=== PATIENT | female | born 1960 | race African-American/Black ===

== ENCOUNTER 2017-08-24 09:51 | Inpatient (IN) | payer OTHER ==
[2017-08-24 10:45] LABS: Hematocrit 29.7 % (36.0-47.0); Mean Platelet Volume 11.2 fL (7.4-10.4); Red Blood Cell (RBC) Count 3.63 mill/uL (4.20-5.40); White Blood Cell (WBC) Count 12.2 thou/uL (4.8-10.8)
[2017-08-24 11:02] LABS: #Eosinphils 0.2 thou/uL (0.0-0.7); #Lymphocytes 2.1 thou/uL (1.20-3.40); #Monocytes 0.7 thou/uL (0.11-0.59); #Neutrophils 9.2 thou/uL (1.40-6.50); %Basophils 0.2 % (0.0-1.0); %Eosinophils 1.5 % (0.0-10.0); %Lymphocytes 17.5 % (21.0-51.0); %Monocytes 5.6 % (0.0-10.0); Band 8 % (5-11); Hypochromia SLIGHT = 6-15 cells (100X) (0-5/hpf); Neutrophil 66 % (42-75); Polychromasia SLIGHT = 2-3 cells (100X) (0-2/hpf)
[2017-08-24 11:09] LABS: ALT (SGPT) 13 U/L (8-55); AST (SGOT) 20 U/L (5-34); Alkaline Phosphatase 98 U/L (40-150); Anion Gap 13 mmol/L (10-20); BUN (Urea Nitrogen) 24 mg/dL (9.8-20.1); Bilirubin, Total 0.7 mg/dL (0.2-1.2); Calc. Creatinine Clearance 0 mL/min (70-130); Calcium 8.6 mg/dL (7.8-10.44); Carbon Dioxide 23 mmol/L (22-29); Chloride 106 mmol/L (98-107); Estimated GFR-MDRD 44; Globulin 4.8 g/dL (2.4-3.5); Protein, Total 8.1 g/dL (6.0-8.3)
[2017-08-24] MEDS ORDERED: Nitroglycerin 2% Ointment 1 INCH/1 GM Packet ONE (11:24)
--- NOTE | 2017-08-24 11:28 | RAD ---
SINGLE VIEW OF THE CHEST: HISTORY: Right-sided weakness and dyspnea. COMPARISON: 11/22/2016 FINDINGS: A single view of the chest shows an enlarged cardiomediastinal silhouette. Fluffy opacities are seen in the lungs, which may represent pulmonary edema. There is obscurity of both costophrenic angles, which may represent bilateral pleural effusions. IMPRESSION: Cardiomegaly with pulmonary edema. This is likely secondary to congestive heart failure with volume overload. POS: [facility]
[2017-08-24] MEDS ORDERED: Water For Inject, Bacteriostat 30 ML ONE (11:52)
[2017-08-24] MEDS ORDERED: methylPREDNISolone Sod Succ/PF 125 MG/2 ML VIAL ONE (11:52)
[2017-08-24] MEDS ORDERED: Furosemide 40 MG/4 ML VIAL ONE (11:53)
[2017-08-24] MEDS ORDERED: hydrALAZINE 20 MG/ML VIAL ONE (14:57)
[2017-08-24] MEDS: Furosemide 40 MG/4 ML VIAL SLOW IVP SCH ×2 (17:20→21:41)
[2017-08-24] MEDS ORDERED: Dextrose 50% Abboject 50 ML SYRINGE IVP PRN (17:50)
[2017-08-24] MEDS ORDERED: Dextrose 5% in Water 1,000 ML IV PRN (17:50)
[2017-08-24] MEDS ORDERED: FLU VACC QS2017-18 36 mo. & older 0.5 ML SYRINGE IM ONE (21:00)
[2017-08-24 22:17] LABS: Troponin I Less than 0.010 ng/mL (< 0.028)
[2017-08-25] MEDS: Furosemide 40 MG/4 ML VIAL SLOW IVP SCH ×3 (02:30→20:35)
--- NOTE | 2017-08-25 06:00 | HP ---
DATE OF ADMISSION: 08/24/2017 REASON AND CHIEF COMPLAINT: Right-sided weakness and shortness of breath. HISTORY OF PRESENT ILLNESS: Ms. Harrison is a 57-year-old -Irish female with past medical history of hypertension, hypertensive heart disease, CHF and insulin-dependent diabetes mellitus, who was brought in because of weakness in the right side and shortness of breath. The patient had weakn ess and also right leg pain, which started a week ago, but got worse in the last 24 hours. According to the family, the patient had change in mental state for the last 3 days, not able to ambulate, so family thought she might have a stroke. EMS was called because of these symptoms and shortness of br eath. EMS found the patient with some respiratory distress and was put on oxygen. In the ER, the dane fields was evaluated and found to have acute pulmonary edema. The patient received a dose of Lasix, S evelyn-Medrol and nitroglycerin. The patient was also found to have elevated blood pressure and also re ceived hydralazine IV. The patient is admitted for further evaluation and management. PAST MEDICAL HISTORY: 1. Insulin-dependent diabetes mellitus. 2. Hypertensive heart disease. 3. Diastolic heart failure. 4. Hyperlipidemia. 5. Status post cerebrovascular accident. 6. History of pneumonia. PAST SURGICAL HISTORY: 1. Status post hernia repair. 2. Status post . CURRENT MEDICATIONS: The patient is on amlodipine 5 mg daily, aspirin 81 mg daily, Coreg 3.125 b.i.d ., Lasix 40 daily, insulin 70/30 Novolin 20 units b.i.d., lisinopril 20 mg b.i.d., metformin 1000 b.i .d. and KCl 20 mEq daily. ALLERGIES: PENICILLIN and SULFA. FAMILY HISTORY: Nothing of interest. SOCIAL HISTORY: The patient lives with her daughter. No history of smoking. No history of alcohol intake. REVIEW OF SYSTEMS: Cardiovascular: No chest pain. Has shortness of breath. Respiratory: No fever or cough. Gastrointestinal: No nausea or vomiting. No abdominal pain. Genitourinary: No distens ion. Central Nervous System: No headache. Feels weak on the right side. Musculoskeletal: Complai jolly of pain in the right leg. No injury. No fall. PHYSICAL EXAMINATION: GENERAL: The patient is alert, awake and oriented x3. VITAL SIGNS: Temperature 98, pulse 98, respirations 23 and blood pressure initially 170/100. HEENT: Head is normocephalic and atraumatic. Pupils are equal and reactive to light. Nasopharynx i s pale and dry. Hard and soft palate. No lesions seen. SKIN: Turgor is decreased. NECK: Supple. No JVD. LUNGS: Breath sounds diminished bilaterally. Percussion not dull bilaterally. Rales are present bi laterally. HEART: S1 and S2 regular. ABDOMEN: Soft. No distention, no tenderness. Normal bowel sounds present. RECTAL: Deferred. CENTRAL NERVOUS SYSTEM: The patient is alert, awake and oriented x3. Motor system power 4/5 in all extremities except the right lower leg, which is about 3-4/5. Deep tendon reflexes are 2+ bilaterall y. Plantars are downgoing. Sensory is intact. EXTREMITIES: 3+ pitting edema. LABORATORY AND X-RAY FINDINGS: CBC showed a WBC of 12, hemoglobin 9, hematocrit 29 and platelets 155 . Metabolic panel: Sodium 138, potassium 3.7, chloride 106, CO2 23, urea nitrogen 24, creatinine 1. 4, glucose 153, CK-MB 2.5 and troponin I 0.010. BNP was 303. Chest x-ray shows pulmonary edema. EK G shows normal sinus rhythm. No acute ST-T wave changes seen. ASSESSMENT: 1. Congestive heart failure, acute on chronic and diastolic heart failure. 2. Uncontrolled hypertension. 3. Hypertensive heart disease. 4. Insulin-dependent diabetes mellitus. 5. Right leg pain. 6. History of cerebrovascular accident with right-sided weakness. 7. Hyperlipidemia. PLAN: 1. Vital signs q.4 hours. 2. Activity: As tolerated. 3. Allergies: PENICILLIN and SULFA. 4. Diet: ADA. 5. Lasix 40 mg IVP q.12 hours. 6. Intake and output. 7. Continue home medications. 8. CK-MB and troponin I q.8 hours x2. 9. Accu-Cheks a.c. and at bedtime. 10. Sliding scale mild with regular insulin. 11. Tramadol p.r.n.
[2017-08-25 06:47] LABS: Anion Gap 15 mmol/L (10-20); BUN (Urea Nitrogen) 28 mg/dL (9.8-20.1); Calc. Creatinine Clearance 61 mL/min (70-130); Calcium 8.2 mg/dL (7.8-10.44); Carbon Dioxide 24 mmol/L (22-29); Chloride 104 mmol/L (98-107); Estimated GFR-MDRD 44; Iron 40 ug/dL (50-170)
[2017-08-25] MEDS: Carvedilol 3.125 MG TAB PO SCH ×2 (09:03→17:34)
[2017-08-25] MEDS: Potassium Chloride 20 MEQ TAB PO SCH (09:03)
[2017-08-25] MEDS: Aspirin 81 mg Enteric Coated Tablet PO SCH (09:03)
[2017-08-25] MEDS: Amlodipine 5 MG TAB PO SCH (09:03)
[2017-08-25] MEDS: metFORMIN 500 MG TAB PO SCH ×2 (09:03→17:34)
[2017-08-25] MEDS: Lisinopril 20 MG TAB PO SCH (09:03)
--- NOTE | 2017-08-25 09:09 | CT ---
CT BRAIN WITHOUT CONTRAST: History: Increased confusion. Comparison: 02-16-15 Technique: Noncontrast head CT is performed from skull base to skull vertex. FINDINGS: No intracranial hemorrhage. No extraaxial hematoma. No midline shift. Basilar cisterns are patent. Br ain volume is age appropriate. Cortical nickerson white matter differentiation is preserved. Ventricles and sulci are patent and symmetric. White matter hypodensities due to chronic vessel ischemic changes are noted. Calvarium is intact. Adequate aeration of the sinuses and mastoid air cells. Cavernous carotid athero sclerosis is identified. IMPRESSION: No acute intracranial process. MRI if clinically indicated. POS: [facility]
[2017-08-25] MEDS: Insulin NPH/Reg Insulin Hm 300 UNITS/3 ML VIAL SC SCH ×2 (09:12→17:07)
--- NOTE | 2017-08-25 11:52 | PQF ---
CLINICAL DOCUMENTATION IMPROVEMENT CLARIFICATION FORM: ICD-10 Updated PLEASE DO AN ADDENDUM TO THE PROGRESS NOTE WITH ANY DOCUMENTATION UPDATES OR ADDITIONS AND CARRY THROUGH TO DC SUMMARY. THANK YOU. DATE: 08/25 ATTN: DR. Adeline KIRAN Please exercise your independent, professional judgment in responding to the clarification form. Clinical indicators are provided on the bottom of this form for your review Please check appropriate box(s): BMI > 40 with associated diagnosis of: (check one) [ y] Morbid (Severe) Obesity [ y ] Due to excess calories [ ] Obesity [ ] Other diagnosis [ ] Unable to determine For continuity of documentation, please document condition throughout progress notes and discharge summary. Thank You. BMI < 19 Under weight 19 - 24.9 Healthy 25.0 - 29.9 Slightly Overweight 30.0 - 34.9 Obese 35.0 - 39.9 Severely Obese 40.0 and Over Morbidly Obese CLINICAL INDICATORS - SIGNS / SYMPTOMS / LABS BMI: 62.8 REQUIRES LARGE WHEELCHAIR, BP CUFF ADDITIONAL STAFF FOR POSITIONING, ADL'S, TRANSFERS RISK FACTORS: DM II HTN HYPERTENSIVE HEART DX W/ACUTE ON CHRONIC DIASTOLIC HF TREATMENTS: NUTRITION ASSMT FOR CHF HEART HEALTHY DIET THANK YOU! Helen (This form is maintained as a part of the permanent medical record) 2014 [employer]. All Rights Reserved Helen Martínez RN, BSN [email or web address] Office: [phone] [facility]
[2017-08-25] MEDS: Insulin Regular 300 UNITS/3 ML VIAL SC PRN ×2 (14:33→18:15)
[2017-08-25] MEDS: Docusate 100 MG CAP PO SCH (20:35)
[2017-08-26 05:58] VITALS: BMI 63.1
[2017-08-26] MEDS: Carvedilol 3.125 MG TAB PO SCH ×2 (08:36→17:38)
[2017-08-26] MEDS: metFORMIN 500 MG TAB PO SCH ×2 (08:36→17:37)
[2017-08-26] MEDS: Insulin NPH/Reg Insulin Hm 300 UNITS/3 ML VIAL SC SCH ×2 (08:36→17:37)
[2017-08-26] MEDS: Amlodipine 5 MG TAB PO SCH (08:37)
[2017-08-26] MEDS: Docusate 100 MG CAP PO SCH ×2 (08:37→20:12)
[2017-08-26] MEDS: Potassium Chloride 20 MEQ TAB PO SCH (08:37)
[2017-08-26] MEDS: Furosemide 40 MG/4 ML VIAL SLOW IVP SCH (08:37)
[2017-08-26] MEDS: Lisinopril 20 MG TAB PO SCH (08:37)
[2017-08-26] MEDS: Aspirin 81 mg Enteric Coated Tablet PO SCH (08:37)
[2017-08-27 05:05] LABS: Anion Gap 11 mmol/L (10-20); BUN (Urea Nitrogen) 26 mg/dL (9.8-20.1); Calc. Creatinine Clearance 73 mL/min (70-130); Carbon Dioxide 28 mmol/L (22-29); Chloride 100 mmol/L (98-107); Estimated GFR-MDRD 55
--- NOTE | 2017-08-27 08:16 | PQF ---
CLINICAL DOCUMENTATION IMPROVEMENT CLARIFICATION FORM: ICD-10 Updated PLEASE DO AN ADDENDUM TO THE PROGRESS NOTE WITH ANY DOCUMENTATION UPDATES OR ADDITIONS AND CARRY THROUGH TO DC SUMMARY. THANK YOU. DATE: 08/27 ATTN: DR. Adeline KIRAN Please exercise your independent, professional judgment in responding to the clarification form. Clinical indicators are provided on the bottom of this form for your review Please check appropriate box(s): [ ] Acute Renal Failure (ARF) / Acute Kidney Injury (KATARZYNA) [ ] Other Etiology or underlying conditions related to the diagnosis of ARF/ KATARZYNA: [ y ] Acute on Chronic Renal Failure please specify Stage of CKD ___stage !!____ _ (see below) [ ] CKD without ARF/KATARZYNA please specify Stage of CKD [ ] Other diagnosis [ ] Unable to determine In addition, please specify: Present on Admission (POA): [ ] Yes [ ] No [ ] Unable to determine National Kidney Foundation Guidelines for CKD Staging Stage I Kidney damage with normal or increased GFR GFR > 90 Stage II Kidney damage with mildly decreased GFR GFR 60-89 Stage III Kidney damage with moderately decreased GFR GFR 30-59 Stage IV Kidney damage with severely decreased GFR GFR 16-29 Stage V Kidney failure GFR<15 ESRD End Stage Renal Disease On dialysis For continuity of documentation, please document condition throughout progress notes and discharge summary. Thank You. CLINICAL INDICATORS - SIGNS / SYMPTOMS / LABS BUN: 24 CR: 1.46 GFR: 44 (ADMIT, 08/24) 28 1.47 44 (08/25) 26 1.21 55 (08/27) RISK FACTORS: MORBID OBESITY UNCONTROLLED HTN DM II ACUTE ON CHRONIC DIASTOLIC CHF TREATMENT: SERIAL BMP DAILY LISINOPRIL THANK YOU! Helen (This form is maintained as a part of the permanent medical record) 2015 [employer]. All Rights Reserved Helen Martínez RN, BSN [email or web address] Office: [phone] [facility]
--- NOTE | 2017-08-27 08:28 | PQF ---
CLINICAL DOCUMENTATION IMPROVEMENT CLARIFICATION FORM: ICD-10 Updated PLEASE DO AN ADDENDUM TO THE PROGRESS NOTE WITH ANY DOCUMENTATION UPDATES OR ADDITIONS AND CARRY THROUGH TO DC SUMMARY. THANK YOU. DATE: 08/27 ATTN: DR. Adeline KIRAN Please exercise your independent, professional judgment in responding to the clarification form. Clinical indicators are provided on the bottom of this form for your review Please check appropriate box(s): [ ] Primary/Essential Hypertension [ ] Emergency [ ] Urgency [ ] Crisis [ y] Hypertensive Heart and Kidney Disease [ ] Secondary Hypertension (please specify etiology, if known) [ ] Other diagnosis [ ] Unable to determine For continuity of documentation, please document condition throughout progress notes and discharge summary. Thank You. CLINICAL INDICATORS - SIGNS / SYMPTOMS / LABS ER PRESENTATION 08/24: BP: 115-67 - 194/102 TREATMENT IN ER: IV HYDRALAZINE, IV LASIX, NTP PHYSICIAN H&P DOCUMENTATION 08/24: HX OF PRESENT ILLNESS: THE PATIENT WAS ALSO FOUND TO HAVE ELEVATED BLOOD PRESSURE & REC'D HYDRALAZINE IV. PAST MEDICAL HX: 2. HYPERTENSIVE HEART DISEASE; ASSESSMENT: 2. UNCONTROLLED HYPERTENSION PHYSICIAN PN 08/25: HYPERTENSION - UNCONTROLLED BP: 133/68 - 187/76 RISK FACTORS: HX OF HTN HX OF CHRONIC DIASTOLIC CHF DM II MORBID OBESITY TREATMENTS: TELEMETRY MONITORING NIKOLAI INHIBITOR (LISINOPRIL 08/24 - PRESENT) CALCIUM CHANNEL KIM (NORVASC 08/24 - PRESENT) THANK YOU! Helen (This form is maintained as a part of the permanent medical record) 2014 [employer]. All Rights Reserved Helen Martínez RN, BSN [email or web address] Office: [phone] [facility]
[2017-08-27] MEDS: Amlodipine 5 MG TAB PO SCH (09:22)
[2017-08-27] MEDS: metFORMIN 500 MG TAB PO SCH ×2 (09:22→17:40)
[2017-08-27] MEDS: Aspirin 81 mg Enteric Coated Tablet PO SCH (09:22)
[2017-08-27] MEDS: Lisinopril 20 MG TAB PO SCH (09:22)
[2017-08-27] MEDS: Potassium Chloride 20 MEQ TAB PO SCH (09:22)
[2017-08-27] MEDS: Carvedilol 3.125 MG TAB PO SCH ×2 (09:22→17:40)
[2017-08-27] MEDS: Furosemide 40 MG/4 ML VIAL SLOW IVP SCH (09:23)
[2017-08-27] MEDS: Docusate 100 MG CAP PO SCH ×2 (09:23→20:15)
[2017-08-27] MEDS: Insulin NPH/Reg Insulin Hm 300 UNITS/3 ML VIAL SC SCH ×2 (09:23→17:40)
[2017-08-27] MEDS: Insulin Regular 300 UNITS/3 ML VIAL SC PRN (12:53)
[2017-08-28] MEDS: Carvedilol 3.125 MG TAB PO SCH ×2 (08:35→17:24)
[2017-08-28] MEDS: metFORMIN 500 MG TAB PO SCH ×2 (08:35→17:24)
[2017-08-28] MEDS: Potassium Chloride 20 MEQ TAB PO SCH (08:35)
[2017-08-28] MEDS: Amlodipine 5 MG TAB PO SCH (08:35)
[2017-08-28] MEDS: Docusate 100 MG CAP PO SCH ×2 (08:35→21:02)
[2017-08-28] MEDS: Furosemide 40 MG/4 ML VIAL SLOW IVP SCH (08:37)
[2017-08-28] MEDS: Aspirin 81 mg Enteric Coated Tablet PO SCH (08:37)
[2017-08-28] MEDS: Lisinopril 20 MG TAB PO SCH (08:37)
[2017-08-28] MEDS: Insulin NPH/Reg Insulin Hm 300 UNITS/3 ML VIAL SC SCH ×2 (08:38→17:55)
[2017-08-28] MEDS: Insulin Regular 300 UNITS/3 ML VIAL SC PRN (12:38)
[2017-08-29 06:24] LABS: #Basophils 0.1 thou/uL (0.0-0.2); #Eosinphils 0.5 thou/uL (0.0-0.7); #Lymphocytes 3.3 thou/uL (1.20-3.40); #Monocytes 1.1 thou/uL (0.11-0.59); #Neutrophils 7.9 thou/uL (1.40-6.50); %Basophils 0.6 % (0.0-1.0); %Eosinophils 3.9 % (0.0-10.0); %Lymphocytes 25.8 % (21.0-51.0); %Monocytes 8.4 % (0.0-10.0); Hematocrit 30.4 % (36.0-47.0); Mean Platelet Volume 10.1 fL (7.4-10.4); Red Blood Cell (RBC) Count 3.55 mill/uL (4.20-5.40); White Blood Cell (WBC) Count 12.9 thou/uL (4.8-10.8)
[2017-08-29 06:51] LABS: Anion Gap 13 mmol/L (10-20); Calc. Creatinine Clearance 69 mL/min (70-130); Calcium 8.2 mg/dL (7.8-10.44); Carbon Dioxide 29 mmol/L (22-29); Chloride 101 mmol/L (98-107); Estimated GFR-MDRD 52
[2017-08-29 07:00] LABS: BUN (Urea Nitrogen) 28 mg/dL (9.8-20.1)
[2017-08-29] MEDS: Potassium Chloride 20 MEQ TAB PO SCH (08:32)
[2017-08-29] MEDS: Amlodipine 5 MG TAB PO SCH (08:32)
[2017-08-29] MEDS: Aspirin 81 mg Enteric Coated Tablet PO SCH (08:33)
[2017-08-29] MEDS: metFORMIN 500 MG TAB PO SCH ×2 (08:33→17:18)
[2017-08-29] MEDS: Furosemide 40 MG TAB PO SCH (08:33)
[2017-08-29] MEDS: Insulin NPH/Reg Insulin Hm 300 UNITS/3 ML VIAL SC SCH ×2 (08:33→17:19)
[2017-08-29] MEDS: Lisinopril 20 MG TAB PO SCH (08:33)
[2017-08-29] MEDS: Docusate 100 MG CAP PO SCH ×2 (08:33→20:42)
[2017-08-29] MEDS: Carvedilol 3.125 MG TAB PO SCH ×2 (08:33→17:18)
[2017-08-30] MEDS: Docusate 100 MG CAP PO SCH (08:46)
[2017-08-30] MEDS: metFORMIN 500 MG TAB PO SCH ×2 (08:46→16:24)
[2017-08-30] MEDS: Lisinopril 20 MG TAB PO SCH (08:46)
[2017-08-30] MEDS: Potassium Chloride 20 MEQ TAB PO SCH (08:47)
[2017-08-30] MEDS: Furosemide 40 MG TAB PO SCH (08:47)
[2017-08-30] MEDS: Carvedilol 3.125 MG TAB PO SCH ×2 (08:47→16:24)
[2017-08-30] MEDS: Amlodipine 5 MG TAB PO SCH (08:47)
[2017-08-30] MEDS: Aspirin 81 mg Enteric Coated Tablet PO SCH (08:47)
[2017-08-30] MEDS: Insulin NPH/Reg Insulin Hm 300 UNITS/3 ML VIAL SC SCH ×2 (08:47→16:24)
[2017-08-30 17:43] VITALS: BP 133/69; TEMP 98.2
--- NOTE | 2017-08-31 13:20 | DIS ---
DATE OF ADMISSION: 08/24/2017 DATE OF DISCHARGE: 08/30/2017 ADMITTING DIAGNOSES: 1. Acute on chronic diastolic heart failure. 2. Acute pulmonary edema. 3. Uncontrolled hypertension. 4. Hypertensive heart disease. 5. Insulin-dependent diabetes mellitus. 6. Right leg pain. 7. History of cerebrovascular accident. 8. Hyperlipidemia. FINAL DIAGNOSES: 1. Acute pulmonary edema, improved. 2. Acute on chronic diastolic heart failure, improved. 3. Hypoxia, improved. 4. Hypertension, uncontrolled, improved. 5. Insulin-dependent diabetes mellitus, uncontrolled, improved. 6. Hypertensive heart disease. 7. History of cerebrovascular accident. 8. Hyperlipidemia. BRIEF SUMMARY OF HOSPITAL COURSE: Ms. Harrison is a 57-year-old female admitted bec ause of shortness of breath. The patient was in acute pulmonary edema due to diastolic heart failure . The patient was placed on Lasix. The cardiac enzymes were done, serial cardiac enzymes were kenia l. No evidence of acute myocardial infarction. The patient's shortness of breath improved over the next few days. The patient was started on physical therapy. She was able to ambulate with physical therapy. She did not have any more chest pain or shortness of breath. Her blood pressure was contro lled. Initially it was high, but medications were adjusted. Her blood sugars were also high, but th ey came down with adjustment of medications. In view of improvement, the patient was discharged. At the time of discharge, she was stable. Her vital signs were stable. Lungs clear. Heart sounds reg ular. Abdomen soft, nontender. Bowel sounds present. DISCHARGE MEDICATIONS: Include insulin, NovoLog insulin 70/30 20 units b.i.d., amlodipine 5 mg mary ann y, aspirin 325 mg daily, lisinopril 20 mg b.i.d., Lasix 40 mg daily, metformin 1000 b.i.d., Coreg 3.1 25 b.i.d., KCl 20 mEq daily, atenolol 25 b.i.d. FOLLOWUP: The patient will come for followup in 2 weeks.
--- NOTE | 2017-09-05 15:52 | EKG ---
Test Reason : Blood Pressure : / mmHG Vent. Rate : 094 BPM Atrial Rate : 094 BPM P-R Int : 164 ms QRS Dur : 078 ms QT Int : 566 ms P-R-T Axes : 038 060 041 degrees QTc Int : 707 ms Normal sinus rhythm T wave abnormality, consider anterior ischemia Prolonged QT Abnormal ECG Confirmed by SANDRA COLLINS, DEEDEE ([id number]), department editor BAL JACKSON ([id number]) on 09/05/2017 3:52:16 PM Referred By: Confirmed By:DEEDEE FLORES MD
== END 2017-08-30 18:39 | disposition home or self-care (01) | DRG 291 ==
LOC: ERS 09:51 → 2NO 13:55
PROVIDERS: ADMIT Internal Medicine; ATTEND Internal Medicine
DX: I13.0 Hypertensive heart and chronic kidney disease with heart failure and stage 1 through stage 4 chronic kidney disease, or unspecified chronic kidney disease (principal); I50.33 Acute on chronic diastolic (congestive) heart failure; N17.9 Acute kidney failure, unspecified; E11.22 Type 2 diabetes mellitus with diabetic chronic kidney disease; I69.951 Hemiplegia and hemiparesis following unspecified cerebrovascular disease affecting right dominant side; Z68.44 Body mass index [BMI] 60.0-69.9, adult; E78.5 Hyperlipidemia, unspecified; D64.9 Anemia, unspecified; Z79.4 Long term (current) use of insulin; Z79.82 Long term (current) use of aspirin; Z88.0 Allergy status to penicillin; Z88.2 Allergy status to sulfonamides; M79.661 Pain in right lower leg; N18.2 Chronic kidney disease, stage 2 (mild); E66.01 Morbid (severe) obesity due to excess calories
CPT/HCPCS: 36415; 36416; 70450; 71010; 80048; 80053; 82553; 82607; 82728; 82746; 83540; 83550; 83880; 84484; 85025; 93005; 93798; 94640; 96374; 96375; J0360; J1815; J1940; J2930; J7620

== ENCOUNTER 2017-11-09 09:59 | Outpatient (CLI) | payer OTHER ==
--- NOTE | 2017-11-09 11:49 | RAD ---
PA AND LATERAL VIEWS CHEST: HISTORY: CHF. COMPARISON: 08/24/2017 FINDINGS: The heart size is enlarged. There is mild prominence of the pulmonary vascularity. No lobar consoli dation, pneumothoraces, or large effusions are seen. POS: OFF
== END 2017-11-09 10:00 | disposition home or self-care (01) ==
LOC: RAD-FRANK 09:59
PROVIDERS: ATTEND Internal Medicine
DX: I50.9 Heart failure, unspecified (principal)
CPT/HCPCS: 71046

== ENCOUNTER 2018-02-03 11:37 | Inpatient (IN) | payer OTHER ==
[2018-02-03] MEDS ORDERED: Furosemide 100 MG/10 ML VIAL ONE (12:19)
[2018-02-03] MEDS ORDERED: Nitroglycerin 2% Ointment 1 INCH/1 GM Packet ONE (12:19)
[2018-02-03 12:51] LABS: #Eosinphils 0.2 thou/uL (0.0-0.7); #Lymphocytes 1.8 thou/uL (1.20-3.40); #Monocytes 0.5 thou/uL (0.11-0.59); #Neutrophils 9.5 thou/uL (1.40-6.50); %Basophils 0.3 % (0.0-1.0); %Eosinophils 1.6 % (0.0-10.0); %Lymphocytes 14.6 % (21.0-51.0); %Monocytes 4.3 % (0.0-10.0); %Neutrophils 79.2 % (42.0-75.0); Hemoglobin 9.8 g/dL (12.0-16.0); Mean Corpuscular HGB CONC 32.1 g/dL (32.0-36.0); Mean Corpuscular Hemoglobin 26.1 pg (27.0-31.0); Mean Corpuscular Volume 81.5 fl (81.0-99.0); Mean Platelet Volume 11.4 fL (7.4-10.4); Platelet Count 268 thou/uL (130-400); RBC Distribution Width 17.6 % (11.5-14.5); Red Blood Cell (RBC) Count 3.74 mill/uL (4.20-5.40)
--- NOTE | 2018-02-03 13:34 | RAD ---
PORTABLE UPRIGHT FRONTAL CHEST RADIOGRAPH: Date: 02-03-18 Comparison: 08-24-17 History: Shortness of breath, dyspnea. FINDINGS: There is pulmonary vascular congestion with diffuse interstitial opacity in the perihilar regions in both lung bases. There is superimposed alveolar opacity in the perihilar regions in both lung bases a s well. When compared to the most recent prior exam performed 11-09-17, these findings are new. IMPRESSION: New interstitial opacities with perihilar and bibasilar airspace disease. Findings suggest pulmonary edema. Superimposed infection/aspiration cannot be excluded. Recommend follow up imaging following tr eatment. POS: [facility]
[2018-02-03 13:41] LABS: Calcium 8.4 mg/dL (7.8-10.44); Chloride 107 mmol/L (98-107); Potassium 3.7 mmol/L (3.5-5.1); Sodium 139 mmol/L (136-145)
[2018-02-03 13:48] LABS: CKMB 1.6 ng/mL (0-6.6); Troponin I Less than 0.010 ng/mL (< 0.028)
[2018-02-03 13:52] LABS: ALT (SGPT) 35 U/L (8-55); AST (SGOT) 58 U/L (5-34); Albumin 3.7 g/dL (3.5-5.0); Alkaline Phosphatase 72 U/L (40-150); Anion Gap 14 mmol/L (10-20); BUN (Urea Nitrogen) 29 mg/dL (9.8-20.1); Bilirubin, Total 0.5 mg/dL (0.2-1.2); CK (CPK) 177 U/L (29-168); Calc. Creatinine Clearance 0 mL/min (70-130); Carbon Dioxide 22 mmol/L (22-29); Estimated GFR-MDRD 34; Globulin 4.9 g/dL (2.4-3.5); Glucose 83 mg/dL (70-105); Lipase 31 U/L (8-78); Protein, Total 8.6 g/dL (6.0-8.3)
[2018-02-03] MEDS ORDERED: Ondansetron HCl/PF 4 MG/2 ML Vial IVP PRN (15:36)
[2018-02-03] MEDS ORDERED: Ondansetron ODT 4 MG TAB SL PRN (15:36)
[2018-02-03 15:43] VITALS: BMI 63.3
[2018-02-03 16:37] LABS: Troponin I Less than 0.010 ng/mL (< 0.028)
[2018-02-03] MEDS ORDERED: Dextrose 50% Abboject 50 ML SYRINGE IVP PRN (18:35)
[2018-02-03] MEDS ORDERED: Dextrose 5% in Water 1,000 ML IV PRN (18:35)
[2018-02-03] MEDS ORDERED: Insulin Regular 300 UNITS/3 ML VIAL SC PRN (18:35)
[2018-02-03] MEDS ORDERED: cloNIDine 0.1 MG TAB PO PRN (18:36)
[2018-02-03 20:01] LABS: Troponin I Less than 0.010 ng/mL (< 0.028)
[2018-02-03] MEDS: Lisinopril 20 MG TAB PO SCH (20:49)
[2018-02-04 04:55] LABS: Hemoglobin 8.5 g/dL (12.0-16.0)
[2018-02-04 04:59] LABS: Anion Gap 12 mmol/L (10-20); BUN (Urea Nitrogen) 31 mg/dL (9.8-20.1); Calc. Creatinine Clearance 48 mL/min (70-130); Calcium 8.6 mg/dL (7.8-10.44); Carbon Dioxide 27 mmol/L (22-29); Chloride 105 mmol/L (98-107); Estimated GFR-MDRD 33; Glucose 110 mg/dL (70-105); Potassium 3.8 mmol/L (3.5-5.1); Sodium 140 mmol/L (136-145)
--- NOTE | 2018-02-04 05:03 | HP ---
DATE OF ADMISSION: 02/03/2018 CHIEF COMPLAINT: Shortness of breath, hypoxia. HISTORY OF PRESENT ILLNESS: Ms. Harrison is a 57-year-old female with past medical history of diastolic heart failure, hypertension, diabetes mellitus, who came because of shortness of breath started last night and got worse this morning. The patient is also having more shortness of breath on exertion and unable to ambulate, because of the shortness of breath. The patient initially came to our office in [place] where she was evaluated and found to be in CHF who was transferred to the hospital and here she was evaluated and found to have acute pulmonary edema. The patient received 80 mg of Lasix and nitro and admitted for further evaluation and management. Currently, the patient feels slightly better. She did not have any chest pain. No nausea or vomiting. Has some leg pain with some swelling. No diaphoresis. No fever. PAST MEDICAL HISTORY: 1. Insulin-dependent diabetes mellitus. 2. Diastolic heart failure. 3. Hypertensive heart disease. 4. Hyperlipidemia. 5. Status post cerebrovascular accident. 6. History of pneumonia. PAST SURGICAL HISTORY: 1. Status post hernia repair. 2. Status post . CURRENT MEDICATIONS: The patient is on Lasix 40 mg b.i.d., Fenofibrate 145 mg daily, Coreg 3.125 b.i.d., atenolol 25 b.i.d., aspirin 325 mg daily, metformin 1000 mg b.i.d., lisinopril 20 b.i.d., amlodipine 5 mg daily, insulin 70/30 20 units b.i.d. ALLERGIES: PENICILLIN, SULFA FAMILY HISTORY: Nothing of interest. SOCIAL HISTORY: The patient lives with her daughter. No history of smoking. No history of alcohol intake. REVIEW OF SYSTEMS: Cardiovascular: Has no chest pain. Has shortness of breath. Respiratory: No fever or cough. Gastrointestinal: No nausea, vomiting, or abdominal pain. Genitourinary: No dysuria or hematuria. Central nervous system: No headache, no dizziness. PHYSICAL EXAMINATION: GENERAL: The patient is alert, awake, oriented x3. VITAL SIGNS: Temperature 98, pulse 76, respiration 20, blood pressure 180/85. HEENT: Head is normocephalic, atraumatic. Pupils equal and reactive to light. Nasopharynx is pale and dry. Hard and soft palate, no lesions seen. SKIN: Skin turgor decreased. NECK: Supple. No JVD. LUNGS: Breath sounds diminished bilaterally. Percussion dull bilaterally. Crackles present bilaterally. CARDIAC: S1, S2 regular. ABDOMEN: Soft, no distention, no tenderness. Normal bowel sounds. RECTAL: Deferred. CENTRAL NERVOUS SYSTEM: No focal deficits. EXTREMITIES: 1+ pitting edema. LABORATORY DATA AND X-RAY FINDINGS: CBC shows WBC 12, hemoglobin 9.8, hematocrit 30, platelets 268. Metabolic panel shows sodium 139, potassium 3.7, chloride 107, CO2 of 22, BUN 29, creatinine 1.83, glucose 83. CK-MB 1.6, troponin I less than 0.010. BNP 955. Chest x-ray shows acute pulmonary edema. EKG shows normal sinus rhythm, no acute ST-T wave changes seen. ASSESSMENT: 1. Acute pulmonary nodule, rule out myocardial infarction, acute on chronic diastolic heart failure. 2. Hypertensive heart disease. 3. Hypertension, uncontrolled. PLAN: 1. Lasix 40 mg IVP q.12 hours. 2. Intake and output. 3. Oxygen by nasal cannula 2 liters. 4. CK-MB and troponin I q.8 hours x2. 5. Continue her home medication. 6. Accu-Chek a.c. and at bedtime. 7. Sliding scale mild with regular insulin. 8. We will obtain echocardiogram. 9. CBC and base met in the morning. MTDD
[2018-02-04] MEDS: Furosemide 40 MG/4 ML VIAL SLOW IVP SCH ×2 (09:24→14:01)
[2018-02-04] MEDS: metFORMIN 500 MG TAB PO SCH ×2 (09:24→18:04)
[2018-02-04] MEDS: Carvedilol 3.125 MG TAB PO SCH ×2 (09:24→18:04)
[2018-02-04] MEDS: Amlodipine 5 MG TAB PO SCH (09:25)
[2018-02-04] MEDS: Fenofibrate Nanocrystallized 145 MG TAB PO SCH (09:25)
[2018-02-04] MEDS: Aspirin 325 mg Enteric Coated Tablet PO SCH (09:25)
[2018-02-04] MEDS: Lisinopril 20 MG TAB PO SCH ×2 (09:25→20:30)
[2018-02-04] MEDS: Insulin NPH/Reg Insulin Hm 300 UNITS/3 ML VIAL SC SCH ×2 (10:41→18:04)
[2018-02-04] MEDS: Insulin Regular 300 UNITS/3 ML VIAL SC PRN (12:12)
[2018-02-05] MEDS: Acetaminophen 325 MG TAB PO PRN (03:16)
[2018-02-05 03:52] LABS: Hemoglobin 8.8 g/dL (12.0-16.0)
[2018-02-05 04:15] LABS: Anion Gap 13 mmol/L (10-20); BUN (Urea Nitrogen) 38 mg/dL (9.8-20.1); Calc. Creatinine Clearance 43 mL/min (70-130); Calcium 8.5 mg/dL (7.8-10.44); Carbon Dioxide 25 mmol/L (22-29); Chloride 105 mmol/L (98-107); Estimated GFR-MDRD 29; Glucose 116 mg/dL (70-105); Iron 43 ug/dL (50-170); Iron Binding Capacity, Total 339 mcg/dL (265-497); Potassium 3.8 mmol/L (3.5-5.1); Sodium 139 mmol/L (136-145)
--- NOTE | 2018-02-05 08:08 | RAD ---
CHEST 1 VIEW: HISTORY: CHF. Dyspnea. COMPARISON: 02/03/18. FINDINGS: Cardiac silhouette is magnified and enlarged. Pulmonary vasculature remains engorged with widespread patchy infiltrate similar in appearance to the prior exam. Haziness of each base is stable. Medias tinum is midline. Curvilinear calcification at the medial aspect of the right apex is similar in caryn earance to the prior study. gambling monitor leads overlie the chest. IMPRESSION: Radiographic findings of congestive heart failure are unchanged. POS: [facility]
[2018-02-05] MEDS: Carvedilol 3.125 MG TAB PO SCH ×2 (09:09→17:13)
[2018-02-05] MEDS: Aspirin 325 mg Enteric Coated Tablet PO SCH (09:09)
[2018-02-05] MEDS: Furosemide 40 MG/4 ML VIAL SLOW IVP SCH ×2 (09:09→13:26)
[2018-02-05] MEDS: Amlodipine 5 MG TAB PO SCH (09:10)
[2018-02-05] MEDS: Fenofibrate Nanocrystallized 145 MG TAB PO SCH (09:10)
[2018-02-05] MEDS: metFORMIN 500 MG TAB PO SCH ×2 (09:10→17:13)
[2018-02-05] MEDS: Lisinopril 20 MG TAB PO SCH ×2 (09:11→20:57)
[2018-02-05] MEDS: Insulin NPH/Reg Insulin Hm 300 UNITS/3 ML VIAL SC SCH ×2 (09:11→17:13)
[2018-02-06] MEDS: Acetaminophen 325 MG TAB PO PRN ×2 (03:36→22:21)
[2018-02-06 05:33] LABS: Anion Gap 12 mmol/L (10-20); BUN (Urea Nitrogen) 39 mg/dL (9.8-20.1); Calc. Creatinine Clearance 43 mL/min (70-130); Calcium 8.3 mg/dL (7.8-10.44); Carbon Dioxide 27 mmol/L (22-29); Chloride 102 mmol/L (98-107); Estimated GFR-MDRD 30; Glucose 98 mg/dL (70-105); Potassium 3.8 mmol/L (3.5-5.1); Sodium 137 mmol/L (136-145)
[2018-02-06] MEDS: Insulin NPH/Reg Insulin Hm 300 UNITS/3 ML VIAL SC SCH ×2 (08:07→16:56)
[2018-02-06] MEDS: Furosemide 40 MG/4 ML VIAL SLOW IVP SCH ×3 (08:07→13:56)
[2018-02-06] MEDS: Amlodipine 5 MG TAB PO SCH (08:08)
[2018-02-06] MEDS: Lisinopril 20 MG TAB PO SCH ×2 (08:08→20:50)
[2018-02-06] MEDS: Aspirin 325 mg Enteric Coated Tablet PO SCH (08:08)
[2018-02-06] MEDS: Fenofibrate Nanocrystallized 145 MG TAB PO SCH (08:08)
[2018-02-06] MEDS: Carvedilol 3.125 MG TAB PO SCH ×2 (08:08→16:56)
[2018-02-06] MEDS: metFORMIN 500 MG TAB PO SCH ×2 (08:08→16:56)
[2018-02-06] MEDS: Insulin Regular 300 UNITS/3 ML VIAL SC PRN (12:25)
[2018-02-06] MEDS ORDERED: Sodium Chloride 0.9% 10 ML ONE (20:27)
[2018-02-06] MEDS ORDERED: Furosemide 40 MG/4 ML VIAL SLOW IVP SCH (20:30)
[2018-02-07 04:59] LABS: Anion Gap 14 mmol/L (10-20); BUN (Urea Nitrogen) 44 mg/dL (9.8-20.1); Calc. Creatinine Clearance 40 mL/min (70-130); Calcium 8.5 mg/dL (7.8-10.44); Carbon Dioxide 26 mmol/L (22-29); Chloride 101 mmol/L (98-107); Estimated GFR-MDRD 29; Glucose 97 mg/dL (70-105); Potassium 3.7 mmol/L (3.5-5.1); Sodium 137 mmol/L (136-145)
[2018-02-07] MEDS: Acetaminophen 325 MG TAB PO PRN ×2 (05:44→21:08)
[2018-02-07] MEDS: Carvedilol 3.125 MG TAB PO SCH ×2 (08:09→16:54)
[2018-02-07] MEDS: Furosemide 40 MG/4 ML VIAL SLOW IVP SCH (08:09)
[2018-02-07] MEDS: Amlodipine 5 MG TAB PO SCH (08:09)
[2018-02-07] MEDS: Lisinopril 20 MG TAB PO SCH ×2 (08:09→21:09)
[2018-02-07] MEDS: Fenofibrate Nanocrystallized 145 MG TAB PO SCH (08:09)
[2018-02-07] MEDS: metFORMIN 500 MG TAB PO SCH ×2 (08:09→16:54)
[2018-02-07] MEDS: Insulin NPH/Reg Insulin Hm 300 UNITS/3 ML VIAL SC SCH ×2 (08:10→16:54)
[2018-02-07] MEDS: Aspirin 325 mg Enteric Coated Tablet PO SCH (08:10)
[2018-02-07] MEDS: Insulin Regular 300 UNITS/3 ML VIAL SC PRN (11:50)
[2018-02-07] MEDS ORDERED: traMADol HCl 50 MG TAB PO PRN (16:29)
[2018-02-07 17:18] LABS: Bilirubin Negative (Negative); Blood, Urine Moderate (Negative); Clarity CLOUDY (Clear); Glucose, Urine (Dipstick) Negative (Negative); Leukocyte Large (Negative); Nitrite Positive (Negative); Protein, Urine (Dipstick) 30 mg/dL (Neg-Trace); Specific Gravity, Urine 1.013 (1.002-1.036)
[2018-02-07 17:20] LABS: Bacteria/HPF 4+ HPF (None Seen); Hyaline Casts/LPF 0-3 HYALINE CAST LPF (0-3 Hyaline); Pathc Cast-AUWi Flag 0.58 (0-2.49); Squamous Epithelial None Seen HPF (0-3); WBC/HPF 21-50 HPF (0-3)
[2018-02-07] MEDS: cefTRIAXone\\ROCEPHIN 2 GM in Sodium Chloride 0.9% 100 ML IVPB SCH (17:55)
[2018-02-08 05:44] LABS: Anion Gap 14 mmol/L (10-20); BUN (Urea Nitrogen) 47 mg/dL (9.8-20.1); Calc. Creatinine Clearance 37 mL/min (70-130); Calcium 8.7 mg/dL (7.8-10.44); Carbon Dioxide 25 mmol/L (22-29); Chloride 103 mmol/L (98-107); Estimated GFR-MDRD 27; Glucose 113 mg/dL (70-105); Potassium 3.8 mmol/L (3.5-5.1); Sodium 138 mmol/L (136-145)
[2018-02-08] MEDS: Carvedilol 3.125 MG TAB PO SCH ×2 (08:20→16:32)
[2018-02-08] MEDS: metFORMIN 500 MG TAB PO SCH ×2 (08:20→16:32)
[2018-02-08] MEDS: Amlodipine 5 MG TAB PO SCH (08:21)
[2018-02-08] MEDS: Lisinopril 20 MG TAB PO SCH ×2 (08:21→20:55)
[2018-02-08] MEDS: Aspirin 325 mg Enteric Coated Tablet PO SCH (08:21)
[2018-02-08] MEDS: Fenofibrate Nanocrystallized 145 MG TAB PO SCH (08:21)
[2018-02-08] MEDS: Insulin NPH/Reg Insulin Hm 300 UNITS/3 ML VIAL SC SCH ×2 (08:22→16:31)
[2018-02-08] MEDS ORDERED: Furosemide 40 MG/4 ML VIAL SLOW IVP SCH (09:00)
[2018-02-08] MEDS: cefTRIAXone\\ROCEPHIN 2 GM in Sodium Chloride 0.9% 100 ML IVPB SCH (17:47)
[2018-02-08] MEDS ORDERED: Fluconazole 100 MG TAB PO SCH (18:30)
[2018-02-09 05:41] LABS: Anion Gap 16 mmol/L (10-20); BUN (Urea Nitrogen) 44 mg/dL (9.8-20.1); Calc. Creatinine Clearance 41 mL/min (70-130); Carbon Dioxide 22 mmol/L (22-29); Chloride 103 mmol/L (98-107); Estimated GFR-MDRD 30; Glucose 120 mg/dL (70-105); Potassium 4.4 mmol/L (3.5-5.1); Sodium 137 mmol/L (136-145)
[2018-02-09] MEDS: Lisinopril 20 MG TAB PO SCH ×2 (08:58→21:16)
[2018-02-09] MEDS: metFORMIN 500 MG TAB PO SCH ×2 (08:59→16:33)
[2018-02-09] MEDS: Fenofibrate Nanocrystallized 145 MG TAB PO SCH (08:59)
[2018-02-09] MEDS: Amlodipine 5 MG TAB PO SCH ×2 (08:59→09:00)
[2018-02-09] MEDS: Carvedilol 3.125 MG TAB PO SCH ×2 (08:59→16:34)
[2018-02-09] MEDS: Furosemide 40 MG TAB PO SCH ×2 (08:59→14:06)
[2018-02-09] MEDS: Insulin NPH/Reg Insulin Hm 300 UNITS/3 ML VIAL SC SCH ×2 (09:00→18:39)
[2018-02-09] MEDS: Aspirin 325 mg Enteric Coated Tablet PO SCH (09:15)
--- NOTE | 2018-02-09 13:39 | PQF ---
CLINICAL DOCUMENTATION IMPROVEMENT CLARIFICATION FORM: ICD-10 Updated PLEASE DO AN ADDENDUM TO THE PROGRESS NOTE WITH ANY DOCUMENTATION UPDATES OR ADDITIONS AND CARRY THROUGH TO DC SUMMARY. THANK YOU. DATE: 02/09/18 ATTN: Dr. Jaeger Please exercise your independent, professional judgment in responding to the clarification form. Clinical indicators are provided on the bottom of this form for your review Please check appropriate box(s): [ ] Acute Renal Failure (ARF)/Acute Kidney Injury [ y ] Acute on Chronic Renal Failure please specify Stage of CKD 3__ [ ] CKD without ARG/KATARZYNA please specify Stage of CKD [ ] Other diagnosis [ ] Unable to determine In addition, please specify: Present on Admission (POA): [y ] Yes [ ] No [ ] Unable to determine For continuity of documentation, please document condition throughout progress notes and discharge summary. Thank You. CLINICAL INDICATORS - SIGNS / SYMPTOMS/ LABS are present in the medical record: 02/03 02/05 02/07 02/09 LABS: CREATININE 1.83 2.10 2.13 2.04 GFR 34 29 29 30 RISKS: H&P: HX OF DIASTOLIC HEART FAILURE; HYPERTENSION, DM. ASSESSMENT: ACUTE ON CHRONIC DIASTOLIC HEART FAILURE. CPOE 02/03: LASIX 40 MG IV 0800, 1400. DC'D 02/07. TREATMENT: ORDER FOR BMP: 02/04, 02/05, 02/06, 02/07, 02/08 & 02/09 National Kidney Foundation Guidelines for CKD Staging Stage I Kidney damage with normal or increased GFR GFR > 90 Stage II Kidney damage with mildly decreased GFR GFR 60-89 Stage III Kidney damage with moderately decreased GFR GFR 30-59 Stage IV Kidney damage with severely decreased GFR GFR 16-29 Stage V Kidney failureGFR<15 ESRD End Stage Renal Disease On dialysis Acute Renal Failure/Acute Kidney Failure defined as: Increases in SCr by (>) 0.3 mg/dl within 48 hours OR- Increases in SCr by (>) 1.5 times baseline, known or presumed to have occurred within the prior 7 days OR- Urine volume < 0.5 ml/kg/hour for 6 hours (KDIGO supplement 2012 for RIFLE/PATRICK criteria) Thank you, Kristel (This form is maintained as a part of the permanent medical record) 2015 [employer]. All Rights Reserved Kristel Perrin RN, BSN [email or web address] Office: [phone] [facility]
--- NOTE | 2018-02-09 14:10 | PQF ---
CLINICAL DOCUMENTATION IMPROVEMENT CLARIFICATION FORM: ICD-10 Updated PLEASE DO AN ADDENDUM TO THE PROGRESS NOTE WITH ANY DOCUMENTATION UPDATES OR ADDITIONS AND CARRY THROUGH TO DC SUMMARY. THANK YOU. DATE: 02/09/18 ATTN: Dr. Jaeger Please exercise your independent, professional judgment in responding to the clarification form. Clinical indicators are provided on the bottom of this form for your review Please check appropriate box(s): [ y] UTI please specify if due to or related to (as applicable): [ ] Indwelling catheter [ y ] Unable to determine etiology [ ] Other diagnosis [ ] Unable to determine In addition, please specify: Present on Admission (POA): [ ] Yes [ y ] No [ ] Unable to determine For continuity of documentation, please document condition throughout progress notes and discharge summary. Thank You. CLINICAL INDICATORS - SIGNS / SYMPTOMS / LABS URINALYSIS 02/07: URINE PROTEIN: 30 URINE NITRITE: POSITIVE URINE WBC: 21-50 BACTERIA 4 + URINE CULTURE 02/07: E COLI PN 02/08: UTI RISKS: ORDER 02/05: URINE CATH: COPELAND ONE TREATMENT: ORDER 02/07: ROCEPHIN 2 GM IV Q 24 HR ORDER 02/08: DISCONTINUE: COPELAND Thank you, Kristel (This form is maintained as a part of the permanent medical record) 2015 [employer]. All Rights Reserved Kristel Perrin RN, BSN [email or web address] Office: [phone] [facility]
[2018-02-09] MEDS: cefTRIAXone\\ROCEPHIN 2 GM in Sodium Chloride 0.9% 100 ML IVPB SCH (16:34)
[2018-02-09] MEDS: Ciprofloxacin 500 MG TAB PO SCH (21:17)
[2018-02-10 05:52] LABS: Anion Gap 14 mmol/L (10-20); BUN (Urea Nitrogen) 43 mg/dL (9.8-20.1); Calc. Creatinine Clearance 46 mL/min (70-130); Carbon Dioxide 24 mmol/L (22-29); Chloride 101 mmol/L (98-107); Estimated GFR-MDRD 34; Glucose 95 mg/dL (70-105); Potassium 3.7 mmol/L (3.5-5.1); Sodium 135 mmol/L (136-145)
[2018-02-10] MEDS: Ciprofloxacin 500 MG TAB PO SCH (05:52)
[2018-02-10 08:29] VITALS: TEMP 98.1
[2018-02-10] MEDS: Lisinopril 20 MG TAB PO SCH (08:53)
[2018-02-10] MEDS: Carvedilol 3.125 MG TAB PO SCH (08:54)
[2018-02-10] MEDS: Furosemide 40 MG TAB PO SCH (08:54)
[2018-02-10] MEDS: Aspirin 325 mg Enteric Coated Tablet PO SCH (08:54)
[2018-02-10] MEDS: Fenofibrate Nanocrystallized 145 MG TAB PO SCH (08:56)
[2018-02-10] MEDS: metFORMIN 500 MG TAB PO SCH (08:56)
[2018-02-10] MEDS: Insulin NPH/Reg Insulin Hm 300 UNITS/3 ML VIAL SC SCH (08:57)
[2018-02-10 14:08] VITALS: BP 143/69
--- NOTE | 2018-02-12 11:43 | DIS ---
DATE OF ADMISSION: 02/03/2018 DATE OF DISCHARGE: 02/10/2018 ADMITTING DIAGNOSES: 1. Acute on chronic systolic heart failure. 2. Rule out myocardial infarction. 3. Hypertensive heart disease. 4. Diabetes mellitus, insulin-dependent. 5. Hyperlipidemia. 6. Status post cerebrovascular accident. 7. Hypertension, uncontrolled. FINAL DIAGNOSES: 1. Acute on chronic systolic heart failure, improved. 2. Hypertension, uncontrolled, improved. 3. Hyperlipidemia. 4. Status post cerebrovascular accident. 5. Hypertensive heart disease. 6. Unstable gait. 7. Urinary tract infection. BRIEF SUMMARY OF HOSPITAL COURSE: Ms. Harrison is a 57-year-old female admitted bec ause of shortness of breath. The patient was in acute pulmonary edema. Due to acute on chronic syst olic heart failure, the patient was given Lasix at higher doses. Her shortness of breath improved in the next few days. She was kept in negative balance. An echocardiogram was done. Echocardiogram s howed normal EF of 55%. The patient was started on physical therapy because she is unable to walk by herself and , she is able to ambulate with her walker with physical therapy. The patient did n ot have any more chest pain. No shortness of breath. The patient did have some urinary tract infect ion. She was given Rocephin. Urine culture revealed E. coli sensitive to all antibiotics. The [facility] ly requested the patient can go to rehabilitation in view of her unstable gait. She was evaluated at rehab and accepted, so she is being transferred to rehabilitation facility. At the time of transfer , she was stable. PHYSICAL EXAMINATION: VITAL SIGNS: Stable. LUNGS: Clear. HEART: Sounds were regular. ABDOMEN: Soft, nontender. Bowel sounds present. DISCHARGE MEDICATIONS: Include Novolin 70/30 insulin 20 units b.i.d., amlodipine 5 mg daily, aspirin 325 mg daily, lisinopril 20 b.i.d., Lasix 40 mg in the morning and 40 mg at 02:00 p.m., metformin 10 00 mg b.i.d., Coreg 3.125 mg b.i.d., atenolol was discontinued, fenofibrate 160 mg daily, Tylenol p.r .n., clonidine p.r.n., tramadol p.r.n. and Cipro 500 b.i.d. for 1 week. The patient will come for followup after she is released from the rehabilitation.
== END 2018-02-10 15:08 | DRG 291 ==
LOC: ERS 11:37 → 2SW 14:05 → OBSVTOIN 14:05 → 2NO 02-04 21:00
PROVIDERS: ADMIT Internal Medicine; ATTEND Internal Medicine
DX: I13.0 Hypertensive heart and chronic kidney disease with heart failure and stage 1 through stage 4 chronic kidney disease, or unspecified chronic kidney disease (principal); I50.23 Acute on chronic systolic (congestive) heart failure; N39.0 Urinary tract infection, site not specified; N17.9 Acute kidney failure, unspecified; E78.5 Hyperlipidemia, unspecified; E11.22 Type 2 diabetes mellitus with diabetic chronic kidney disease; N18.3 Chronic kidney disease, stage 3 (moderate); B96.20 Unspecified Escherichia coli [E. coli] as the cause of diseases classified elsewhere; Z86.73 Personal history of transient ischemic attack (TIA), and cerebral infarction without residual deficits; Z88.0 Allergy status to penicillin; Z88.2 Allergy status to sulfonamides; Z79.82 Long term (current) use of aspirin; Z79.4 Long term (current) use of insulin; Z79.899 Other long term (current) drug therapy
CPT/HCPCS: 36415; 36416; 71045; 80048; 80053; 81001; 82274; 82553; 82728; 83540; 83550; 83690; 83880; 84484; 85014; 85018; 85025; 87077; 87086; 87186; 93005; 93306; 93798; 96374; A4216; G8978-GP-CL; G8979-GP-CL; G8980-GP-CL; G8987-GO-CL; G8988-GO-CI; J0696; J1815; J1940; J7050

== ENCOUNTER 2018-05-27 10:45 | Inpatient (IN) | payer OTHER ==
[2018-05-27 11:58] LABS: #Basophils 0.1 thou/uL (0.0-0.2); #Eosinphils 0.6 thou/uL (0.0-0.7); #Lymphocytes 2.2 thou/uL (1.20-3.40); #Monocytes 0.6 thou/uL (0.11-0.59); #Neutrophils 6.4 thou/uL (1.40-6.50); %Eosinophils 5.9 % (0.0-10.0); %Monocytes 5.9 % (0.0-10.0); %Neutrophils 65.3 % (42.0-75.0); Hemoglobin 10.5 g/dL (12.0-16.0); Mean Corpuscular HGB CONC 32.5 g/dL (32.0-36.0); Mean Corpuscular Hemoglobin 26.9 pg (27.0-31.0); Mean Corpuscular Volume 82.9 fL (78.0-98.0); Mean Platelet Volume 11.1 fL (7.4-10.4); Platelet Count 231 thou/uL (130-400); RBC Distribution Width 15.1 % (11.5-14.5); Red Blood Cell (RBC) Count 3.89 mill/uL (4.20-5.40); White Blood Cell (WBC) Count 9.8 thou/uL (4.8-10.8)
[2018-05-27 12:18] LABS: ALT (SGPT) 13 U/L (8-55); AST (SGOT) 26 U/L (5-34); Albumin 3.8 g/dL (3.5-5.0); Alkaline Phosphatase 99 U/L (40-150); Anion Gap 17 mmol/L (10-20); BUN (Urea Nitrogen) 28 mg/dL (9.8-20.1); Bilirubin, Total 0.6 mg/dL (0.2-1.2); CK (CPK) 236 U/L (29-168); Calc. Creatinine Clearance 0 mL/min (70-130); Calcium 9.1 mg/dL (7.8-10.44); Carbon Dioxide 21 mmol/L (22-29); Chloride 100 mmol/L (98-107); Estimated GFR-MDRD 37; Glucose 195 mg/dL (70-105); Lipase 34 U/L (8-78); Protein, Total 9.8 g/dL (6.0-8.3); Sodium 134 mmol/L (136-145)
[2018-05-27 12:20] LABS: CKMB 2.7 ng/mL (0-6.6); Troponin I 0.014 ng/mL (< 0.028)
--- NOTE | 2018-05-27 13:11 | ULT ---
LEFT LOWER EXTREMITY VENOUS DOPPLER: History Lower extremity pain and swelling. COMPARISON: None. TECHNIQUE: Real-time, nickerson scale, color flow and spectral analysis of the left lower extremity venous system was performed. Common femoral, femoral, proximal portion of greater saphenous and deep femoral veins as well as popliteal and posterior tibial vein were interrogated. Normal flow, augmentation, and compression. Mild lower extremity edema. IMPRESSION: No deep venous thrombosis. POS: ARTURO
[2018-05-27] MEDS ORDERED: cefTRIAXone\\ROCEPHIN 2 GM VIAL ONE (14:54)
[2018-05-27] MEDS ORDERED: Labetalol HCl 100 MG/20 ML VIAL ONE (15:06)
[2018-05-27] MEDS ORDERED: Ondansetron ODT 4 MG TAB SL PRN (17:07)
[2018-05-27] MEDS ORDERED: Ondansetron HCl/PF 4 MG/2 ML Vial IVP PRN (17:07)
[2018-05-27] MEDS ORDERED: Acetaminophen 325 MG TAB PO PRN (17:52)
[2018-05-27] MEDS ORDERED: Dextrose 5% in Water 1,000 ML IV PRN (18:00)
[2018-05-27] MEDS ORDERED: Dextrose 50% Abboject 50 ML SYRINGE IVP PRN (18:00)
[2018-05-27] MEDS: cloNIDine 0.1 MG TAB PO PRN (18:15)
[2018-05-27] MEDS: traMADol HCl 50 MG TAB PO PRN ×2 (18:20→23:40)
[2018-05-27] MEDS: Insulin Regular 300 UNITS/3 ML VIAL SC PRN (18:21)
[2018-05-27] MEDS: Lisinopril 20 MG TAB PO SCH (20:29)
[2018-05-27] MEDS: Furosemide 40 MG/4 ML VIAL SLOW IVP SCH (20:29)
--- NOTE | 2018-05-27 20:38 | HP ---
DATE OF ADMISSION: 05/27/2018 CHIEF COMPLAINT: Leg edema and wounds on the legs. HISTORY OF PRESENT ILLNESS: Ms. Harrison is a 57-year-old -[place] female with past medical history of insulin-dependent diabetes mellitus, CHF came with marked leg edema, which is getting wors e for the last 2 weeks. She did not have any fever. No chest pain, no shortness of breath. Does moore ve leg pain. The patient was initially seen in the office and later sent to the emergency room [facility] of 4+ pitting edema of legs. In the ER, the patient was evaluated and found to have marked edema of both lower legs with ulcers present on the back of the leg. The patient received antibiotics for possible infection and DVT study was negative. She is being admitted for further evaluation and no robison. PAST MEDICAL HISTORY: 1. Insulin-dependent diabetes mellitus. 2. Hypertension. 3. Hyperlipidemia. 4. Diastolic heart failure. 5. History of hypertension, heart disease. 6. Status post cerebrovascular accident. PAST SURGICAL HISTORY: 1. Status post hernia repair. 2. Status post . CURRENT MEDICATIONS: The patient is on Lasix 40 mg b.i.d.; fenofibrate 145 mg daily; Coreg 3.125 b.i .d.; metformin 1000 b.i.d.; lisinopril 20 mg b.i.d.; aspirin 81 mg daily; amlodipine 5 mg daily; insu rosario 70/30, 20 units b.i.d.; fenofibrate 160. ALLERGIES: PENICILLIN, SULFA. FAMILY HISTORY: Nothing of interest. SOCIAL HISTORY: The patient lives with family. No history of smoking. No history of alcohol. REVIEW OF SYSTEMS: Cardiovascular: No chest pain. No shortness of breath. Respiratory: No fever or cough. Gastrointestinal: No nausea or vomiting. No abdominal pain. Genitourinary: No dysuria or hematuria. Central nervous system: No headache, no dizziness. PHYSICAL EXAMINATION: GENERAL: The patient is alert, awake, oriented x3. VITAL SIGNS: Temperature 98, pulse 100, respiratory rate 18, blood pressure 170/90. HEENT: Head is normocephalic, atraumatic. Pupils equal and reactive to light. Nasopharynx is pale and dry. Hard and soft palate, no lesions seen. SKIN: Skin turgor decreased. NECK: Supple. No JVD. LUNGS: Bilateral air entry present. No rales, no rhonchi. HEART: S1, S2 regular. ABDOMEN: Soft. No distention, no tenderness. No organomegaly. Bowel sounds present. RECTAL: Deferred. CENTRAL NERVOUS SYSTEM: No focal deficits. EXTREMITIES: Marked 3 to 4+ pitting edema of both lower extremities with some erythema. There is a wound on the back of the left leg, oozing water. LABORATORY AND X-RAY FINDINGS: CBC: WBC 9.8, hemoglobin 10.5, hematocrit 32, platelets 231. D-dime r is 0.31. Metabolic panel: Sodium 134, potassium 4, chloride 100, CO2 of 21, BUN 28, creatinine 1. 7, glucose 195, lactic acid 1.6. CK-MB is 2.7. Troponin I is 0.01. DVT study is negative. Chest x -ray is negative. ASSESSMENT: 1. Severe intractable leg edema, not responding to p.o. Lasix. 2. Possible cellulitis. 3. Insulin-dependent diabetes mellitus. 4. Hypertensive heart disease. 5. Status post cerebrovascular accident. 6. Hyperlipidemia. 7. History of diastolic heart failure. PLAN: 1. Vital signs q.4 hours. 2. Activity: As tolerated. 3. Allergies: PENICILLIN and SULFA. 4. Hep-Lock. 5. Diet: ADA. 6. Lasix 40 mg IVP q.12 hours. 7. Intake and output. 8. Vancomycin 1 gram IV piggyback daily. 9. Accu-Chek before meals and at bedtime. 10. Sliding scale mild with regular insulin. 11. We will obtain BMP in the morning.
[2018-05-28 05:45] LABS: Anion Gap 12 mmol/L (10-20); BUN (Urea Nitrogen) 28 mg/dL (9.8-20.1); Calc. Creatinine Clearance 50 mL/min (70-130); Carbon Dioxide 25 mmol/L (22-29); Chloride 102 mmol/L (98-107); Estimated GFR-MDRD 36; Glucose 240 mg/dL (70-105); Potassium 3.9 mmol/L (3.5-5.1); Sodium 135 mmol/L (136-145)
[2018-05-28] MEDS: Insulin Regular 300 UNITS/3 ML VIAL SC PRN ×2 (06:33→13:20)
[2018-05-28] MEDS: Fenofibrate Nanocrystallized 145 MG TAB PO SCH (07:56)
[2018-05-28] MEDS: metFORMIN 500 MG TAB PO SCH ×2 (07:56→16:43)
[2018-05-28] MEDS: Carvedilol 3.125 MG TAB PO SCH ×2 (07:57→16:43)
[2018-05-28] MEDS: Aspirin 325 mg Enteric Coated Tablet PO SCH (07:57)
[2018-05-28] MEDS: Lisinopril 20 MG TAB PO SCH ×2 (07:57→21:39)
[2018-05-28] MEDS: Amlodipine 5 MG TAB PO SCH (07:57)
[2018-05-28] MEDS: Furosemide 40 MG/4 ML VIAL SLOW IVP SCH ×2 (07:58→21:46)
[2018-05-28] MEDS: Insulin NPH/Reg Insulin Hm 300 UNITS/3 ML VIAL SC SCH ×2 (08:48→16:43)
[2018-05-28] MEDS: cloNIDine 0.1 MG TAB PO PRN (16:49)
[2018-05-28] MEDS: traMADol HCl 50 MG TAB PO PRN (16:49)
[2018-05-28] MEDS ORDERED: Ondansetron ODT 4 MG TAB SL PRN (22:20)
[2018-05-29] MEDS: Aspirin 325 mg Enteric Coated Tablet PO SCH (07:48)
[2018-05-29] MEDS: Carvedilol 3.125 MG TAB PO SCH (07:48)
[2018-05-29] MEDS: Fenofibrate Nanocrystallized 145 MG TAB PO SCH (07:48)
[2018-05-29] MEDS: Lisinopril 20 MG TAB PO SCH ×2 (07:48→20:27)
[2018-05-29] MEDS: Furosemide 40 MG/4 ML VIAL SLOW IVP SCH ×2 (07:49→20:27)
[2018-05-29] MEDS: Amlodipine 5 MG TAB PO SCH ×2 (07:49→20:26)
[2018-05-29] MEDS: metFORMIN 500 MG TAB PO SCH ×2 (07:49→16:23)
[2018-05-29] MEDS: Insulin NPH/Reg Insulin Hm 300 UNITS/3 ML VIAL SC SCH ×2 (07:49→16:24)
[2018-05-29] MEDS ORDERED: Vancomycin HCl 1 GM in Premix Bag 1 BAG IVPB SCH (14:45)
[2018-05-29] MEDS: Carvedilol 6.25 MG TAB PO SCH (16:23)
[2018-05-29] MEDS: Ondansetron HCl/PF 4 MG/2 ML Vial IVP PRN (20:27)
[2018-05-30 04:08] LABS: #Eosinphils 0.3 thou/uL (0.0-0.7); #Lymphocytes 2.4 thou/uL (1.20-3.40); #Monocytes 0.7 thou/uL (0.11-0.59); %Basophils 0.5 % (0.0-1.0); %Eosinophils 3.7 % (0.0-10.0); %Monocytes 7.6 % (0.0-10.0); %Neutrophils 63.3 % (42.0-75.0); Hemoglobin 9.1 g/dL (12.0-16.0); Mean Corpuscular HGB CONC 31.8 g/dL (32.0-36.0); Mean Corpuscular Hemoglobin 26.5 pg (27.0-31.0); Mean Corpuscular Volume 83.5 fL (78.0-98.0); Mean Platelet Volume 10.8 fL (7.4-10.4); Platelet Count 236 thou/uL (130-400); RBC Distribution Width 14.9 % (11.5-14.5); Red Blood Cell (RBC) Count 3.42 mill/uL (4.20-5.40); White Blood Cell (WBC) Count 9.4 thou/uL (4.8-10.8)
[2018-05-30 04:18] LABS: Anion Gap 15 mmol/L (10-20); BUN (Urea Nitrogen) 29 mg/dL (9.8-20.1); Calc. Creatinine Clearance 44 mL/min (70-130); Calcium 8.5 mg/dL (7.8-10.44); Carbon Dioxide 27 mmol/L (22-29); Chloride 103 mmol/L (98-107); Estimated GFR-MDRD 31; Glucose 74 mg/dL (70-105); Potassium 3.4 mmol/L (3.5-5.1); Sodium 142 mmol/L (136-145)
[2018-05-30 04:24] LABS: Vancomycin, Random 17.4 ug/mL (See Comment)
[2018-05-30] MEDS: Aspirin 325 mg Enteric Coated Tablet PO SCH (08:37)
[2018-05-30] MEDS: Amlodipine 5 MG TAB PO SCH ×2 (08:38→20:27)
[2018-05-30] MEDS: Fenofibrate Nanocrystallized 145 MG TAB PO SCH (08:38)
[2018-05-30] MEDS: Lisinopril 20 MG TAB PO SCH ×2 (08:38→20:27)
[2018-05-30] MEDS: metFORMIN 500 MG TAB PO SCH ×2 (08:38→17:09)
[2018-05-30] MEDS: Carvedilol 6.25 MG TAB PO SCH ×2 (08:38→17:09)
[2018-05-30] MEDS: Furosemide 40 MG/4 ML VIAL SLOW IVP SCH (08:39)
[2018-05-30] MEDS: Insulin NPH/Reg Insulin Hm 300 UNITS/3 ML VIAL SC SCH ×2 (08:39→17:23)
[2018-05-30] MEDS: Ondansetron HCl/PF 4 MG/2 ML Vial IVP PRN (12:55)
[2018-05-30] MEDS ORDERED: Vancomycin HCl 1 GM in Premix Bag 1 BAG IVPB SCH (14:30)
[2018-05-30] MEDS: Potassium Chloride 20 MEQ TAB PO SCH ×2 (15:13→17:27)
[2018-05-30] MEDS: Insulin Regular 300 UNITS/3 ML VIAL SC PRN (17:25)
[2018-05-30] MEDS: Furosemide 40 MG TAB PO SCH (20:27)
[2018-05-31] MEDS: traMADol HCl 50 MG TAB PO PRN (02:32)
[2018-05-31 05:57] LABS: Anion Gap 16 mmol/L (10-20); BUN (Urea Nitrogen) 36 mg/dL (9.8-20.1); Calc. Creatinine Clearance 30 mL/min (70-130); Carbon Dioxide 23 mmol/L (22-29); Chloride 102 mmol/L (98-107); Estimated GFR-MDRD 22; Glucose 124 mg/dL (70-105); Potassium 3.9 mmol/L (3.5-5.1); Sodium 137 mmol/L (136-145)
[2018-05-31] MEDS: metFORMIN 500 MG TAB PO SCH ×2 (08:11→18:01)
[2018-05-31] MEDS: Furosemide 40 MG TAB PO SCH (08:11)
[2018-05-31] MEDS: Aspirin 325 mg Enteric Coated Tablet PO SCH (08:12)
[2018-05-31] MEDS: Carvedilol 6.25 MG TAB PO SCH ×2 (08:12→18:01)
[2018-05-31] MEDS: Amlodipine 5 MG TAB PO SCH ×2 (08:12→20:15)
[2018-05-31] MEDS: Fenofibrate Nanocrystallized 145 MG TAB PO SCH (08:12)
[2018-05-31] MEDS: Lisinopril 20 MG TAB PO SCH ×2 (08:13→20:15)
[2018-05-31] MEDS: Insulin NPH/Reg Insulin Hm 300 UNITS/3 ML VIAL SC SCH ×2 (08:13→18:01)
[2018-05-31] MEDS ORDERED: Sodium Chloride 0.45% 1,000 ML IV SCH (09:30)
[2018-05-31 17:22] VITALS: BMI 36.9
[2018-05-31] MEDS: Insulin Regular 300 UNITS/3 ML VIAL SC PRN (18:03)
[2018-06-01] MEDS: Lisinopril 20 MG TAB PO SCH ×2 (08:28→20:25)
[2018-06-01] MEDS: metFORMIN 500 MG TAB PO SCH ×2 (08:28→16:13)
[2018-06-01] MEDS: Carvedilol 6.25 MG TAB PO SCH ×2 (08:28→16:13)
[2018-06-01] MEDS: Aspirin 325 mg Enteric Coated Tablet PO SCH (08:28)
[2018-06-01] MEDS: Fenofibrate 48 MG TAB PO SCH (08:28)
[2018-06-01] MEDS: Amlodipine 5 MG TAB PO SCH ×2 (08:28→20:25)
[2018-06-01] MEDS: Insulin NPH/Reg Insulin Hm 300 UNITS/3 ML VIAL SC SCH ×2 (08:29→16:19)
[2018-06-01] MEDS: Metoclopramide HCl 10 MG TAB PO SCH (20:25)
[2018-06-02] MEDS: Lisinopril 20 MG TAB PO SCH ×2 (07:44→20:57)
[2018-06-02] MEDS: Aspirin 325 mg Enteric Coated Tablet PO SCH (07:44)
[2018-06-02] MEDS: Fenofibrate 48 MG TAB PO SCH (07:44)
[2018-06-02] MEDS: Carvedilol 6.25 MG TAB PO SCH ×2 (07:44→16:20)
[2018-06-02] MEDS: metFORMIN 500 MG TAB PO SCH ×2 (07:45→16:20)
[2018-06-02] MEDS: Amlodipine 5 MG TAB PO SCH ×2 (07:45→20:58)
[2018-06-02] MEDS: Metoclopramide HCl 10 MG TAB PO SCH ×4 (07:45→20:57)
[2018-06-02] MEDS: Insulin NPH/Reg Insulin Hm 300 UNITS/3 ML VIAL SC SCH ×2 (07:46→16:21)
[2018-06-03] MEDS: Fenofibrate 48 MG TAB PO SCH (08:23)
[2018-06-03] MEDS: metFORMIN 500 MG TAB PO SCH (08:23)
[2018-06-03] MEDS: Carvedilol 6.25 MG TAB PO SCH (08:23)
[2018-06-03] MEDS: Amlodipine 5 MG TAB PO SCH (08:23)
[2018-06-03] MEDS: Metoclopramide HCl 10 MG TAB PO SCH ×2 (08:23→11:00)
[2018-06-03] MEDS: Aspirin 325 mg Enteric Coated Tablet PO SCH (08:23)
[2018-06-03] MEDS: Insulin NPH/Reg Insulin Hm 300 UNITS/3 ML VIAL SC SCH (08:24)
[2018-06-03] MEDS: Lisinopril 20 MG TAB PO SCH (08:24)
--- NOTE | 2018-06-03 09:53 | PQF ---
CLINICAL DOCUMENTATION IMPROVEMENT CLARIFICATION FORM: ICD-10 Updated PLEASE DO AN ADDENDUM TO THE PROGRESS NOTE WITH ANY DOCUMENTATION UPDATES OR ADDITIONS AND CARRY THROUGH TO DC SUMMARY. THANK YOU. DATE: 06/03/18 ATTN: DR. KIRAN Please exercise your independent, professional judgment in responding to the clarification form. Clinical indicators are provided on the bottom of this form for your review Please check appropriate box(s): HEART FAILURE: A. TYPE: [ ] Systolic / HFrEF [ y ] Diastolic / HFpEF [ ] Combined Systolic / Diastolic B. ACUITY [ ] Acute [ y] Acute on Chronic [ ] Chronic [ ] Other diagnosis [ ] Unable to determine In addition, please specify: Present on Admission (POA): [ y ] Yes [ ] No [ ] Unable to determine For continuity of documentation, please document condition throughout progress notes and discharge summary. Thank You. CLINICAL INDICATORS - SIGNS / SYMPTOMS / LABS BNP 204.4 PROGRESS NOTE 05/29: "LEG EDEMA DUE TO CHF" H&P: "PITTING EDEMA OF LEGS" RISKS: H/O DIASTOLIC CHF (PER H&P) TREATMENT: IV LASIX (05/27, 05/28, 05/29, 05/30) SERIAL LABS (This form is maintained as a part of the permanent medical record) 2014 [employer], [employer]. All Rights Reserved [email or web address] Office: [phone] [facility]
[2018-06-03 12:13] VITALS: BP 147/76; TEMP 98.6
--- NOTE | 2018-06-04 14:24 | DIS ---
DATE OF ADMISSION: 05/27/2018 DATE OF DISCHARGE: 06/03/2018 ADMITTING DIAGNOSES: 1. Severe intractable leg edema due to congestive heart failure and not responding to Lasix. 2. Wound to left leg with cellulitis. 3. Insulin-dependent diabetes mellitus. 4. Hypertensive heart disease. 5. Status post cerebrovascular accident. 6. Hyperlipidemia. 7. History of diastolic heart failure. FINAL DIAGNOSES: 1. Severe intractable edema due to diastolic heart failure, improved. 2. Wound in left leg with cellulitis, improving. 3. Hypertensive heart disease. 4. Hypertension, controlled, improved. 5. Status post cerebrovascular accident. 6. Hyperlipidemia. BRIEF SUMMARY OF HOSPITAL COURSE: Ms. Harrison is a 57-year-old female admitted with intractable lef edema and left leg wound with cellulitis. The patient did not respond to p.o. Lasix. The patient was started on IV Lasix and IV antibiotics, vancomycin, and later changed to Levaquin. The patient's leg edema markedly improved in the next few days. Wound Care consulted and patient was seen by Wound Care. Her renal function got worse after the Lasix, so the Lasix dose was held for 2 days and gave her 1 liter of fluid, after which renal function improved. The patient is unable to ambulate well and not able to take care of herself, so she was evaluated for care home. She is accepted at [facility], so she is being transferred there. At the time of discharge, she was stable. Her vital signs were stable. Lungs, clear. Heart, sounds regular. Abdomen is soft, nontender. Bowel sounds present. DISCHARGE MEDICATIONS: Include amlodipine 5 mg daily, aspirin 325 mg daily, lisinopril 20 mg b.i.d., metformin 1000 b.i.d., Coreg 3.125 b.i.d., fenofibrate 48 mg daily, Tylenol p.r.n., clonidine p.r.n., Lasix 40 mg b.i.d., Tramadol 50 mg q.6 hours p.r.n., Levaquin 750 daily for 1 week, Reglan 5 mg a.c and at bedtime, Zofran p.r.n. The patient was started on Reglan suspecting gastroparesis, which is causing her nausea. [facility]
== END 2018-06-03 14:03 | DRG 603 ==
LOC: ERS 10:45 → T4-B 16:55
PROVIDERS: ADMIT Internal Medicine; ATTEND Internal Medicine
DX: L03.116 Cellulitis of left lower limb (principal); I50.32 Chronic diastolic (congestive) heart failure; I11.0 Hypertensive heart disease with heart failure; E11.9 Type 2 diabetes mellitus without complications; Z79.4 Long term (current) use of insulin; E78.5 Hyperlipidemia, unspecified; Z86.73 Personal history of transient ischemic attack (TIA), and cerebral infarction without residual deficits; Z88.0 Allergy status to penicillin; Z88.2 Allergy status to sulfonamides
CPT/HCPCS: 36415; 36416; 51701; 80048; 80053; 80202; 82553; 83605; 83690; 83880; 84484; 85025; 87040; 96365; 96375; G8978-GP-CK; G8979-GP-CI; J0696; J1815; J1940; J1956; J2405; J3370; Q0162

== ENCOUNTER 2018-12-13 07:57 | Inpatient (IN) | payer OTHER ==
[2018-12-13] MEDS ORDERED: methylPREDNISolone Sod Succ/PF 125 MG/2 ML VIAL ONE (08:16)
[2018-12-13] MEDS ORDERED: Furosemide 40 MG/4 ML VIAL ONE (08:16)
[2018-12-13] MEDS ORDERED: Nitroglycerin 2% Ointment 1 INCH/1 GM Packet ONE (08:16)
[2018-12-13 08:21] LABS: Actual Bicarbonate (HCO3a) 25.3 mEq/L (22-28); Analyzer IN Cardio ER; Base Excess (BEa) 1.9 mEq/L (-2.0 to +3.0); CO2 Tension 35.1 mmHg (35.0-45.0); Calcium, Ionized 0.92 mmol/L (1.12-1.30); Carboxyhemoglobin (COHb) 0.6 gm% (0.0-3.0); Hemoglobin (Hb) 10.9 g/dL (12.0-16.0); O2 Tension (PaO2) 61.4 mmHg (> 80.0); Potassium - ABG Lab 3.64 mmol/L (3.70-5.30); pH, Arterial 7.48 (7.35-7.45)
[2018-12-13 08:22] LABS: ALV-art Gradient 108.625 (0-20); Puncture Site RRA
[2018-12-13 08:31] LABS: #Basophils 0.1 thou/uL (0.0-0.2); #Eosinphils 0.7 thou/uL (0.0-0.7); #Lymphocytes 2.6 thou/uL (1.20-3.40); #Monocytes 0.8 thou/uL (0.11-0.59); #Neutrophils 8.5 thou/uL (1.40-6.50); %Basophils 0.5 % (0.0-1.0); %Eosinophils 5.5 % (0.0-10.0); %Lymphocytes 20.6 % (21.0-51.0); %Monocytes 6.1 % (0.0-10.0); %Neutrophils 67.4 % (42.0-75.0); Hemoglobin 10.4 g/dL (12.0-16.0); Mean Corpuscular HGB CONC 32.1 g/dL (32.0-36.0); Mean Corpuscular Hemoglobin 26.9 pg (27.0-31.0); Mean Corpuscular Volume 83.8 fL (78.0-98.0); Mean Platelet Volume 11.7 fL (7.4-10.4); Platelet Count 225 thou/uL (130-400); RBC Distribution Width 15.2 % (11.5-14.5); Red Blood Cell (RBC) Count 3.88 mill/uL (4.20-5.40); White Blood Cell (WBC) Count 12.5 thou/uL (4.8-10.8)
--- NOTE | 2018-12-13 08:49 | RAD ---
FExam: Chest one view HISTORY:Dyspnea, short of breath Comparison: 02/03/2018 FINDINGS: Cardiac silhouette:Enlarged cardiac silhouette with vascular congestion Pulmonary vessels: Pulmonary edema, bilaterally, perihilar in distribution, moderate to severe. Costophrenic angles: Bilateral pleural fluid is suggested LUNGS: Bilateral alveolar consolidation favoring edema. Pneumothorax: None evident. Osseous abnormalities: None IMPRESSION: Decompensated CHF is suggested. Recommend continued follow-up.
[2018-12-13] MEDS ORDERED: Ondansetron PF 4 MG/2 ML Vial IVP PRN (09:00)
[2018-12-13] MEDS ORDERED: Acetaminophen 325 MG TAB PO PRN (09:00)
[2018-12-13] MEDS ORDERED: Ondansetron ODT 4 MG TAB SL PRN (09:00)
[2018-12-13 09:18] LABS: CKMB 5.1 ng/mL (0-6.6)
[2018-12-13] MEDS ORDERED: Enalaprilat Dihydrate 1.25 MG/ML VIAL SLOW IVP SCH (09:30)
[2018-12-13 09:50] LABS: ALT (SGPT) 11 U/L (8-55); AST (SGOT) 22 U/L (5-34); Albumin 3.3 g/dL (3.5-5.0); Alkaline Phosphatase 113 U/L (40-150); Anion Gap 13 mmol/L (10-20); BUN (Urea Nitrogen) 28 mg/dL (9.8-20.1); Bilirubin, Total 0.4 mg/dL (0.2-1.2); CK (CPK) 329 U/L (29-168); Calc. Creatinine Clearance 0 mL/min (70-130); Calcium 7.6 mg/dL (7.8-10.44); Carbon Dioxide 29 mmol/L (22-29); Chloride 100 mmol/L (98-107); Estimated GFR-MDRD 29; Globulin 4.9 g/dL (2.4-3.5); Glucose 192 mg/dL (70-105); Potassium 3.7 mmol/L (3.5-5.1); Protein, Total 8.2 g/dL (6.0-8.3); Sodium 138 mmol/L (136-145)
[2018-12-13 12:01] LABS: Troponin I 0.042 ng/mL (< 0.028)
[2018-12-13] MEDS ORDERED: Acetaminophen 325 MG TAB ONE (13:06)
[2018-12-13] MEDS ORDERED: Ondansetron PF 4 MG/2 ML Vial ONE (13:06)
[2018-12-13 14:45] LABS: Troponin I 0.024 ng/mL (< 0.028)
[2018-12-13] MEDS ORDERED: Nitroglycerin 2% Ointment 1 INCH/1 GM Packet TOP SCH (16:00)
[2018-12-13] MEDS ORDERED: Dextrose 5% in Water 1,000 ML IV PRN (17:54)
[2018-12-13] MEDS ORDERED: Dextrose 50% Abboject 50 ML SYRINGE IVP PRN (17:54)
[2018-12-13] MEDS ORDERED: cloNIDine 0.1 MG TAB PO PRN (17:56)
[2018-12-13] MEDS ORDERED: Lisinopril 20 MG TAB PO SCH (18:00)
[2018-12-13] MEDS ORDERED: Furosemide 40 MG/4 ML VIAL SLOW IVP SCH (18:00)
[2018-12-13] MEDS: Insulin Regular 300 UNITS/3 ML VIAL SC PRN ×2 (19:11→21:00)
[2018-12-13 19:19] LABS: Glucose Accucheck Confirmation 374 mg/dl (70-105)
--- NOTE | 2018-12-13 21:21 | HP ---
CHIEF COMPLAINT: Shortness of breath. HISTORY OF PRESENT ILLNESS: Ms. Harrison is a 58-year-old female with past medical history of hypertensive heart disease, diastolic heart failure, diabetes, status post CVA, who was brought in with shortness of breath. The patient says she has been having shortness of breath for a week, but got worse now to the point she cannot breathe and has been wheezing also. No chest pain. No nausea or vomiting. Also, noticed leg edema 2+. So, the patient called the EMS because of worsening shortness of breath in spite of taking her medications. The patient was in respiratory failure. She was put on BiPAP. Brought to the emergency room, where she was evaluated and found to have markedly elevated blood pressure of 180/90. The patient received a dose of Lasix in the ER, 80 mg IVP; also received enalapril for blood pressure; and received DuoNeb treatments as well and received nitroglycerin. After which, blood pressure came down and her shortness of breath is somewhat improved. The patient was admitted for further evaluation and management. PAST MEDICAL HISTORY: 1. Hypertensive heart disease. 2. Diastolic dysfunction. 3. Diabetes mellitus. 4. Hyperlipidemia. 5. Status post CVA. PAST SURGICAL HISTORY: 1. Status post hernia repair. 2. Status post . CURRENT MEDICATIONS: The patient is on; 1. Lisinopril 20 mg b.i.d. 2. Aspirin 325 mg daily. 3. Lasix 40 mg b.i.d. 4. Coreg 3.125 b.i.d. 5. Potassium chloride 10 mEq b.i.d. 6. Metformin 1000 mg b.i.d. 7. Insulin 70/30 20 units b.i.d. 8. Fenofibrate 145 mg q.h.s. ALLERGIES: PENICILLIN AND SULFA. FAMILY HISTORY: Nothing contributory. SOCIAL HISTORY: The patient lives with family. No history of smoking. No history of alcohol intake. REVIEW OF SYSTEMS: CARDIOVASCULAR: No chest pain. Has shortness of breath. RESPIRATORY: Has cough. GASTROINTESTINAL: No nausea or vomiting. No abdominal pain. CENTRAL NERVOUS SYSTEMS: No headache. No dizziness. PHYSICAL EXAMINATION: GENERAL: The patient is alert, awake, and oriented x3. NECK: Supple. No JVD. LUNGS: Bilateral air entry present. Rales present at both bases. HEART: S1 and S2, regular. ABDOMEN: Soft. No distention. No tenderness. No organomegaly. Bowel sounds present. RECTAL: Deferred. CENTRAL NERVOUS SYSTEMS: No focal deficits. EXTREMITIES: 3+ pitting edema in both the lower extremities. LABORATORY DATA: CBC shows WBC 12.5, hemoglobin 10, hematocrit 32, platelets 225. Metabolic panel; sodium 138, potassium 3.7, chloride 100, CO2 of 19, BUN 28, creatinine 2, glucose 192. Troponin I 0.035. BNP of 393. ABG showed pH of 7.48, pCO2 of 53, pO2 of 61, saturation 91%. Chest x-ray shows CHF. EKG shows sinus tachycardia with a heart rate of 103. No acute ST-T wave changes seen. ASSESSMENT: 1. Acute on chronic diastolic heart failure. 2. Hypoxia with respiratory failure. 3. Hypertensive heart disease. 4. Hypertension, uncontrolled. 5. Diastolic dysfunction. 6. Insulin-dependent diabetes mellitus. 7. Status post cerebrovascular accident. PLAN: 1. Vital signs q.4 hours. 2. Activity; as tolerated. 3. Allergies; penicillin and sulfa. 4. Hep-Lock. 5. Diet; cardiac. 6. Lasix 40 mg IVP q.12 hours. 7. Continue home medications. 8. Basic metabolic panel in the morning. 9. Accu-Chek a.c. and h.s. with sliding scale mild with regular insulin. 10. Clonidine 0.1 p.o. q.6 hours p.r.n. Job ID: [id number]
[2018-12-13] MEDS: traMADol HCl 50 MG TAB PO PRN (23:51)
[2018-12-14] MEDS: Furosemide 40 MG/4 ML VIAL SLOW IVP SCH ×2 (05:50→13:44)
[2018-12-14 07:09] LABS: Anion Gap 13 mmol/L (10-20); BUN (Urea Nitrogen) 39 mg/dL (9.8-20.1); Calc. Creatinine Clearance 35 mL/min (70-130); Calcium 7.1 mg/dL (7.8-10.44); Carbon Dioxide 29 mmol/L (22-29); Chloride 101 mmol/L (98-107); Estimated GFR-MDRD 24; Glucose 169 mg/dL (70-105); Potassium 3.8 mmol/L (3.5-5.1); Sodium 139 mmol/L (136-145)
[2018-12-14] MEDS: Carvedilol 3.125 MG TAB PO SCH ×2 (08:56→16:04)
[2018-12-14] MEDS: Potassium Chloride 10 MEQ TAB PO SCH ×2 (08:56→16:04)
[2018-12-14] MEDS: Lisinopril 20 MG TAB PO SCH ×2 (08:57→20:05)
[2018-12-14] MEDS: Aspirin 325 mg Enteric Coated Tablet PO SCH (08:57)
[2018-12-14] MEDS: HumuLIN 70/30 (300 UNITS/3 ML VIAL) SC SCH ×2 (09:39→16:05)
[2018-12-14] MEDS: Acetaminophen 325 MG TAB PO PRN (16:04)
[2018-12-14] MEDS: Insulin Regular 300 UNITS/3 ML VIAL SC PRN (21:04)
[2018-12-14] MEDS: traMADol HCl 50 MG TAB PO PRN (22:54)
[2018-12-15] MEDS: Furosemide 40 MG/4 ML VIAL SLOW IVP SCH ×2 (04:51→13:32)
[2018-12-15] MEDS: Carvedilol 3.125 MG TAB PO SCH ×2 (08:14→17:01)
[2018-12-15] MEDS: Potassium Chloride 10 MEQ TAB PO SCH ×2 (08:15→17:01)
[2018-12-15] MEDS: Aspirin 325 mg Enteric Coated Tablet PO SCH (08:15)
[2018-12-15] MEDS: Lisinopril 20 MG TAB PO SCH ×2 (08:15→20:32)
[2018-12-15] MEDS: HumuLIN 70/30 (300 UNITS/3 ML VIAL) SC SCH ×2 (08:19→17:06)
--- NOTE | 2018-12-15 14:04 | PQF ---
CLINICAL DOCUMENTATION IMPROVEMENT CLARIFICATION FORM: ICD-10 Updated PLEASE DO AN ADDENDUM TO THE PROGRESS NOTE WITH ANY DOCUMENTATION UPDATES OR ADDITIONS AND CARRY THROUGH TO DC SUMMARY. THANK YOU. DATE 12/15/2018 ATTN: Dr. Jaeger Please exercise your independent, professional judgment in responding to the clarification form. Clinical indicators are provided on the bottom of this form for your review Please check appropriate box(s): [ ] Acute Renal Failure (ARF) / Acute Kidney Injury (KATARZYNA) [ y] Acute on Chronic Renal Failure please specify Stage of CKD _3 [ ] CKD without ARF/KATARZYNA please specify Stage of CKD [ ] Other diagnosis [ ] Unable to determine In addition, please specify: Present on Admission (POA): [y ] Yes [ ] No [ ] Unable to determine For continuity of documentation, please document condition throughout progress notes and discharge summary. Thank You. CLINICAL INDICATORS - SIGNS / SYMPTOMS/ LABS are present in the medical record: 12/13 12/14 LABS: Creatinine 2.11 2.52 Estimated GFR 29 24 RISKS: H&P 12/13: Hx of hypertensive heart disease. Diastolic dysfunction. DM. S/P CVA. Acute on chronic diastolic heart failure. Lasix 40 mg IVP q 12 hrs MAR: 12/13 Aspirin 325 mg po Daily TREATMENT: Lab Order: CMP 12/13, BMP 12/14 Thank you, Kristel (This form is maintained as a part of the permanent medical record) 2014 [employer]. All Rights Reserved Kristel Perrin, RN, BSN [email or web address] Office: [phone] [facility]
[2018-12-15] MEDS: Insulin Regular 300 UNITS/3 ML VIAL SC PRN (20:32)
[2018-12-16] MEDS: Furosemide 40 MG/4 ML VIAL SLOW IVP SCH ×2 (05:08→14:21)
[2018-12-16] MEDS: traMADol HCl 50 MG TAB PO PRN ×2 (07:20→19:46)
--- NOTE | 2018-12-16 07:59 | RAD ---
FExam: Chest 2 view HISTORY:CHF Comparison: 12/13/2018 FINDINGS: Lungs: No masses or consolidation. Cardiac silhouette: Remains enlarged Pulmonary vessels: Mild central prominence. Pleural Spaces: Clear Pneumothorax: None Osseous abnormalities: None IMPRESSION: Persistent enlargement of cardiac silhouette. Correlate clinically.
[2018-12-16] MEDS: HumuLIN 70/30 (300 UNITS/3 ML VIAL) SC SCH ×2 (08:25→16:14)
[2018-12-16] MEDS: Aspirin 325 mg Enteric Coated Tablet PO SCH (08:25)
[2018-12-16] MEDS: Lisinopril 20 MG TAB PO SCH ×2 (08:25→19:47)
[2018-12-16] MEDS: Potassium Chloride 10 MEQ TAB PO SCH ×2 (08:25→16:14)
[2018-12-16] MEDS: Carvedilol 3.125 MG TAB PO SCH ×2 (08:25→16:14)
[2018-12-16 10:41] LABS: Anion Gap 14 mmol/L (10-20); BUN (Urea Nitrogen) 44 mg/dL (9.8-20.1); Calc. Creatinine Clearance 35 mL/min (70-130); Calcium 6.8 mg/dL (7.8-10.44); Carbon Dioxide 30 mmol/L (22-29); Chloride 95 mmol/L (98-107); Estimated GFR-MDRD 23; Glucose 208 mg/dL (70-105); Potassium 3.4 mmol/L (3.5-5.1); Sodium 136 mmol/L (136-145)
[2018-12-16] MEDS: Acetaminophen 325 MG TAB PO PRN ×2 (13:51→21:27)
[2018-12-17] MEDS: Furosemide 40 MG/4 ML VIAL SLOW IVP SCH ×2 (05:19→13:57)
[2018-12-17] MEDS: Aspirin 325 mg Enteric Coated Tablet PO SCH (08:45)
[2018-12-17] MEDS: Lisinopril 20 MG TAB PO SCH ×2 (08:45→21:24)
[2018-12-17] MEDS: Potassium Chloride 10 MEQ TAB PO SCH ×2 (08:45→18:19)
[2018-12-17] MEDS: Carvedilol 3.125 MG TAB PO SCH ×2 (08:45→18:19)
[2018-12-17] MEDS: HumuLIN 70/30 (300 UNITS/3 ML VIAL) SC SCH ×2 (08:46→18:20)
[2018-12-18] MEDS: Furosemide 40 MG/4 ML VIAL SLOW IVP SCH ×2 (05:39→13:29)
[2018-12-18 05:45] LABS: #Basophils 0.1 thou/uL (0.0-0.2); #Eosinphils 0.6 thou/uL (0.0-0.7); #Lymphocytes 2.7 thou/uL (1.20-3.40); #Monocytes 0.8 thou/uL (0.11-0.59); #Neutrophils 6.4 thou/uL (1.40-6.50); %Basophils 0.5 % (0.0-1.0); %Monocytes 7.9 % (0.0-10.0); %Neutrophils 60.6 % (42.0-75.0); Hemoglobin 10.3 g/dL (12.0-16.0); Mean Corpuscular HGB CONC 32.1 g/dL (32.0-36.0); Mean Corpuscular Hemoglobin 26.7 pg (27.0-31.0); Mean Corpuscular Volume 83.3 fL (78.0-98.0); Mean Platelet Volume 10.9 fL (7.4-10.4); Platelet Count 215 thou/uL (130-400); RBC Distribution Width 15.1 % (11.5-14.5); Red Blood Cell (RBC) Count 3.86 mill/uL (4.20-5.40); White Blood Cell (WBC) Count 10.6 thou/uL (4.8-10.8)
[2018-12-18 06:04] LABS: Anion Gap 12 mmol/L (10-20); BUN (Urea Nitrogen) 48 mg/dL (9.8-20.1); Calc. Creatinine Clearance 39 mL/min (70-130); Calcium 7.4 mg/dL (7.8-10.44); Carbon Dioxide 30 mmol/L (22-29); Chloride 99 mmol/L (98-107); Estimated GFR-MDRD 27; Glucose 89 mg/dL (70-105); Potassium 3.5 mmol/L (3.5-5.1); Sodium 137 mmol/L (136-145)
[2018-12-18] MEDS: Potassium Chloride 10 MEQ TAB PO SCH ×2 (08:55→17:48)
[2018-12-18] MEDS: Carvedilol 3.125 MG TAB PO SCH ×2 (08:56→17:39)
[2018-12-18] MEDS: Lisinopril 20 MG TAB PO SCH ×2 (08:56→21:39)
[2018-12-18] MEDS: Aspirin 325 mg Enteric Coated Tablet PO SCH (08:56)
[2018-12-18] MEDS: HumuLIN 70/30 (300 UNITS/3 ML VIAL) SC SCH ×2 (08:56→17:39)
[2018-12-18] MEDS: Potassium Chloride 20 MEQ TAB PO SCH ×2 (17:39→21:39)
[2018-12-18] MEDS: Insulin Regular 300 UNITS/3 ML VIAL SC PRN ×2 (17:40→21:39)
[2018-12-19] MEDS: traMADol HCl 50 MG TAB PO PRN (01:27)
[2018-12-19] MEDS: Furosemide 40 MG/4 ML VIAL SLOW IVP SCH ×2 (05:00→13:45)
[2018-12-19] MEDS: Aspirin 325 mg Enteric Coated Tablet PO SCH (08:13)
[2018-12-19] MEDS: Potassium Chloride 10 MEQ TAB PO SCH ×2 (08:13→17:52)
[2018-12-19] MEDS: Carvedilol 3.125 MG TAB PO SCH ×2 (08:13→17:51)
[2018-12-19] MEDS: Lisinopril 20 MG TAB PO SCH ×2 (08:14→21:05)
[2018-12-19] MEDS: HumuLIN 70/30 (300 UNITS/3 ML VIAL) SC SCH ×2 (08:14→17:52)
[2018-12-19] MEDS: Insulin Regular 300 UNITS/3 ML VIAL SC PRN (11:42)
[2018-12-20 06:17] LABS: Anion Gap 13 mmol/L (10-20); BUN (Urea Nitrogen) 48 mg/dL (9.8-20.1); Calc. Creatinine Clearance 36 mL/min (70-130); Calcium 7.4 mg/dL (7.8-10.44); Carbon Dioxide 27 mmol/L (22-29); Chloride 100 mmol/L (98-107); Estimated GFR-MDRD 24; Glucose 148 mg/dL (70-105); Potassium 3.9 mmol/L (3.5-5.1); Sodium 136 mmol/L (136-145)
[2018-12-20] MEDS: Carvedilol 3.125 MG TAB PO SCH ×2 (08:25→16:13)
[2018-12-20] MEDS: HumuLIN 70/30 (300 UNITS/3 ML VIAL) SC SCH ×2 (08:25→17:27)
[2018-12-20] MEDS: Aspirin 325 mg Enteric Coated Tablet PO SCH (08:26)
[2018-12-20] MEDS: Lisinopril 20 MG TAB PO SCH ×2 (08:26→21:26)
[2018-12-20] MEDS: Potassium Chloride 10 MEQ TAB PO SCH ×2 (08:26→16:15)
[2018-12-20] MEDS: Furosemide 40 MG TAB PO SCH ×2 (08:26→14:04)
[2018-12-20] MEDS ORDERED: Docusate 100 MG CAP PO PRN (10:10)
[2018-12-20] MEDS ORDERED: Polyethylene Glycol 3350 17 GM Packet PO PRN (10:11)
[2018-12-20] MEDS: Insulin Regular 300 UNITS/3 ML VIAL SC PRN ×2 (12:50→21:44)
[2018-12-21] MEDS: Potassium Chloride 10 MEQ TAB PO SCH ×2 (08:45→16:12)
[2018-12-21] MEDS: Carvedilol 3.125 MG TAB PO SCH ×2 (08:45→16:12)
[2018-12-21] MEDS: Furosemide 40 MG TAB PO SCH ×2 (08:45→13:27)
[2018-12-21] MEDS: HumuLIN 70/30 (300 UNITS/3 ML VIAL) SC SCH ×2 (08:45→16:48)
[2018-12-21] MEDS: Aspirin 325 mg Enteric Coated Tablet PO SCH (08:45)
[2018-12-21] MEDS ORDERED: Lisinopril 20 MG TAB PO SCH (09:00)
[2018-12-21 11:07] VITALS: BMI 35.2
[2018-12-21] MEDS: Insulin Regular 300 UNITS/3 ML VIAL SC PRN (13:29)
[2018-12-21 15:40] VITALS: BP 142/62; TEMP 98.5
== END 2018-12-21 19:43 | disposition home or self-care (01) | DRG 291 ==
LOC: ERS 07:57 → ERHOLD 11:58 → 2NO 14:27
PROVIDERS: ADMIT Internal Medicine; ATTEND Internal Medicine
PROC: 5A09457 Assistance with Respiratory Ventilation, 24-96 Consecutive Hours, Continuous Positive Airway Pressure (ICD-10-PCS; principal; 2018-12-13)
DX: I13.0 Hypertensive heart and chronic kidney disease with heart failure and stage 1 through stage 4 chronic kidney disease, or unspecified chronic kidney disease (principal); I50.33 Acute on chronic diastolic (congestive) heart failure; J96.01 Acute respiratory failure with hypoxia; I69.354 Hemiplegia and hemiparesis following cerebral infarction affecting left non-dominant side; N17.9 Acute kidney failure, unspecified; N18.3 Chronic kidney disease, stage 3 (moderate); E11.22 Type 2 diabetes mellitus with diabetic chronic kidney disease; E78.5 Hyperlipidemia, unspecified; Z88.0 Allergy status to penicillin; Z88.2 Allergy status to sulfonamides; Z79.82 Long term (current) use of aspirin; Z79.899 Other long term (current) drug therapy; Z79.84 Long term (current) use of oral hypoglycemic drugs; Z79.4 Long term (current) use of insulin
CPT/HCPCS: 36415; 36416; 71045; 71046; 80048; 80053; 82550; 82553; 82805; 83880; 84484; 85025; 87040; 87804; 93005; 93306; 93798; 94640; 94660; 94760; 96365; 96366; 96375; J1815; J1940; J1956; J2405; J2930; J7620

== ENCOUNTER 2019-01-04 01:10 | Observation (INO) | payer OTHER ==
[2019-01-04] MEDS ORDERED: Lidocaine 1% (PF) 30 ML VIAL ONE (02:00)
[2019-01-04 02:46] LABS: #Basophils 0.1 thou/uL (0.0-0.2); #Eosinphils 0.4 thou/uL (0.0-0.7); #Lymphocytes 2.9 thou/uL (1.20-3.40); #Monocytes 0.6 thou/uL (0.11-0.59); #Neutrophils 5.9 thou/uL (1.40-6.50); %Basophils 0.5 % (0.0-1.0); %Eosinophils 4.6 % (0.0-10.0); %Lymphocytes 29.2 % (21.0-51.0); %Monocytes 5.7 % (0.0-10.0); Hemoglobin 9.6 g/dL (12.0-16.0); Mean Corpuscular HGB CONC 32.5 g/dL (32.0-36.0); Mean Corpuscular Hemoglobin 27.5 pg (27.0-31.0); Mean Corpuscular Volume 84.4 fL (78.0-98.0); Mean Platelet Volume 11.7 fL (7.4-10.4); Platelet Count 174 thou/uL (130-400); RBC Distribution Width 15.2 % (11.5-14.5); White Blood Cell (WBC) Count 9.8 thou/uL (4.8-10.8)
[2019-01-04 03:01] LABS: ALT (SGPT) 14 U/L (8-55); AST (SGOT) 18 U/L (5-34); Albumin 3.4 g/dL (3.5-5.0); Alkaline Phosphatase 94 U/L (40-150); Anion Gap 15 mmol/L (10-20); BUN (Urea Nitrogen) 40 mg/dL (9.8-20.1); Bilirubin, Total 0.3 mg/dL (0.2-1.2); Calc. Creatinine Clearance 0 mL/min (70-130); Calcium 7.6 mg/dL (7.8-10.44); Carbon Dioxide 25 mmol/L (22-29); Chloride 102 mmol/L (98-107); Estimated GFR-MDRD 22; Globulin 4.6 g/dL (2.4-3.5); Glucose 265 mg/dL (70-105); Potassium 3.5 mmol/L (3.5-5.1); Sodium 138 mmol/L (136-145)
[2019-01-04] MEDS ORDERED: Furosemide 40 MG/4 ML VIAL ONE (03:36)
[2019-01-04] MEDS ORDERED: Fentanyl 100 MCG/2 ML VIAL ONE (03:36)
[2019-01-04 04:26] LABS: Troponin I 0.029 ng/mL (< 0.028)
[2019-01-04] MEDS ORDERED: Aspirin 325 MG TAB ONE (05:35)
[2019-01-04 06:14] VITALS: BMI 61.3
[2019-01-04] MEDS ORDERED: Albuterol Sulfate 2.5 mg/3 ml Neb NEB PRN (06:20)
[2019-01-04] MEDS ORDERED: Ondansetron PF 4 MG/2 ML Vial IVP PRN (06:21)
[2019-01-04] MEDS ORDERED: Acetaminophen 325 MG TAB PO PRN ×2 (06:21→07:43)
[2019-01-04] MEDS ORDERED: Dextrose 5% in Water 1,000 ML IV PRN (07:41)
[2019-01-04] MEDS ORDERED: Insulin Regular 300 UNITS/3 ML VIAL SC PRN ×2 (07:41)
[2019-01-04] MEDS ORDERED: Dextrose 50% Abboject 50 ML SYRINGE IVP PRN (07:41)
[2019-01-04 07:48] LABS: Troponin I 0.058 ng/mL (< 0.028)
--- NOTE | 2019-01-04 07:52 | RAD ---
SINGLE VIEW OF THE CHEST: COMPARISON: 12/13/2018. HISTORY: Shortness of breath. FINDINGS: A single view of the chest shows an enlarged cardiomediastinal silhouette. There are increased inter stitial lung markings, unchanged. There is improvement in the previously seen airspace opacity in th e left lung. There may be small bilateral pleural effusions. Degenerative changes are seen in the s pine. IMPRESSION: Cardiomegaly with possible small bilateral pleural effusions. POS: CARMELA
[2019-01-04] MEDS: Furosemide 40 MG/4 ML VIAL SLOW IVP SCH ×2 (08:17→13:37)
[2019-01-04] MEDS: Potassium Chloride 10 MEQ TAB PO SCH ×2 (08:17→16:45)
[2019-01-04] MEDS: Lisinopril 20 MG TAB PO SCH (08:17)
[2019-01-04] MEDS: Aspirin 325 mg Enteric Coated Tablet PO SCH (08:18)
[2019-01-04] MEDS: Ondansetron ODT 4 MG TAB PO PRN ×3 (08:18→15:08)
[2019-01-04] MEDS: traMADol HCl 50 MG TAB PO PRN ×3 (08:18→22:51)
[2019-01-04] MEDS: Carvedilol 3.125 MG TAB PO SCH ×2 (08:18→20:35)
[2019-01-04] MEDS: HumuLIN 70/30 (300 UNITS/3 ML VIAL) SC SCH (09:28)
--- NOTE | 2019-01-04 09:33 | NM ---
VQ SCAN: HISTORY: Elevated D-dimer, dyspnea. TECHNIQUE: A ventilation perfusion scan is performed using 9 mCi Xenon 133 by inhalation for the ventilation cindy dy followed by the intravenous administration of 6 mCi Technetium 99m-MAA for the perfusion scan. FINDINGS: Correlation is made with the exam of 01/04/2019. Homogeneous tracer distribution is seen in the lungs on both ventilation perfusion scans without mism atched pleural-based wedge-shaped segmental or subsegmental perfusion defects. IMPRESSION: Normal exam. POS: TPC
--- NOTE | 2019-01-04 20:32 | HP ---
CHIEF COMPLAINT: Shortness of breath. HISTORY OF PRESENT ILLNESS: Ms. Harrison is a 58-year-old Afro [place] female with history of CHF and with shortness of breath. The patient was recently in the hospital, where CHF treated and released. But, she is having for the last few days, shortness of breath with orthopnea and paroxysmal nocturnal dyspnea. No chest pain. No nausea or vomiting. No headache. No dizziness, but the patient has been noncompliant with her medications, so EMS was called. EMS found the patient with respiratory distress, found to be in CHF, was brought to the emergency room, where she was given Lasix IV and aspirin. So currently, the patient feels better than before. PAST MEDICAL HISTORY: 1. Hypertension. 2. Diabetes mellitus. 3. History of diastolic heart failure. 4. Hyperlipidemia. 5. Status post cerebrovascular accident. 6. History of hypertensive heart disease. PAST SURGICAL HISTORY: 1. Status post hernia repair. 2. Status post . CURRENT MEDICATIONS: 1. The patient is supposed to be taking insulin 70/30, 20 units in the morning and 10 units in the evening. 2. Aspirin 325 mg daily. 3. Coreg 3.125 b.i.d. 4. Atenolol p.r.n. 5. Lasix 40 mg b.i.d. 6. Tramadol b.i.d. p.r.n. 7. KCl 10 mEq b.i.d. 8. Colace 100 mg daily. 9. Lisinopril 20 mg daily. ALLERGIES: PENICILLIN AND SULFA. FAMILY HISTORY: Nothing contributory. SOCIAL HISTORY: Lives with family. No history of smoking. No history of alcohol intake. REVIEW OF SYSTEMS: CARDIOVASCULAR: No chest pain. No shortness of breath. RESPIRATORY: No fever or cough. GASTROINTESTINAL: No nausea, vomiting, or abdominal pain. CENTRAL NERVOUS SYSTEM: No headache. No dizziness. PHYSICAL EXAMINATION: GENERAL: The patient is alert, awake, and oriented x3. VITAL SIGNS: Temperature 98, pulse 88, respirations 20, blood pressure 180/80. HEENT: Head is normocephalic and atraumatic. Pupils are equal and reactive. Nasopharynx is pink, moist. NECK: Supple. No JVD. LUNGS: Bilateral air entry present. Rales present at bases. No wheezing. HEART: S1 and S2. Regular. ABDOMEN: Soft. No distention. No tenderness. Normal bowel sounds present. RECTAL: Deferred. CENTRAL NERVOUS SYSTEM: The patient is alert, awake, and oriented x3. Motor system, power 4/5 in all extremities. Deep tendon reflex 2+ bilaterally. Plantars downgoing. LABORATORY DATA: CBC showed WBC 9.9, hemoglobin 9.7, hematocrit 29, and platelets 174. Metabolic panel; sodium 138, potassium 3.5, chloride 102, CO2 of 25, urea nitrogen 40, creatinine 2.6, and glucose 265. Troponin I 0.029 and BNP is 197. D-dimer 0.89. Chest x-ray shows mild vascular congestion. EKG, normal sinus rhythm and no acute ST-T changes seen. ASSESSMENT: 1. Acute on chronic diastolic heart failure. 2. Hypertensive heart disease. 3. Hypertension, uncontrolled. 4. Diabetes mellitus. 5. Hyperlipidemia. 6. Status post cerebrovascular accident. 7. Noncompliant. PLAN: 1. Vital signs q.4 hours. 2. Activity; as tolerated. 3. Allergies; penicillin and sulfa. 4. Hep-Lock. 5. Lasix 40 mg IVP q.12 hours. 6. Continue home medications. 7. Intake and output. 8. The patient looks stable most likely able to be discharged home tomorrow. Job ID: [id number]
[2019-01-04] MEDS ORDERED: HumuLIN 70/30 (300 UNITS/3 ML VIAL) SC SCH (21:00)
[2019-01-05 05:57] LABS: Anion Gap 13 mmol/L (10-20); BUN (Urea Nitrogen) 36 mg/dL (9.8-20.1); Calc. Creatinine Clearance 41 mL/min (70-130); Calcium 7.7 mg/dL (7.8-10.44); Carbon Dioxide 27 mmol/L (22-29); Chloride 104 mmol/L (98-107); Estimated GFR-MDRD 29; Glucose 93 mg/dL (70-105); Potassium 3.6 mmol/L (3.5-5.1); Sodium 140 mmol/L (136-145)
[2019-01-05 07:27] VITALS: BP 140/65; TEMP 97.7
[2019-01-05] MEDS: Furosemide 40 MG/4 ML VIAL SLOW IVP SCH (07:35)
[2019-01-05] MEDS: HumuLIN 70/30 (300 UNITS/3 ML VIAL) SC SCH (07:35)
[2019-01-05] MEDS: Lisinopril 20 MG TAB PO SCH (07:36)
[2019-01-05] MEDS: Potassium Chloride 10 MEQ TAB PO SCH (07:36)
[2019-01-05] MEDS: Carvedilol 3.125 MG TAB PO SCH (07:36)
[2019-01-05] MEDS: Aspirin 325 mg Enteric Coated Tablet PO SCH (07:36)
== END 2019-01-05 11:41 | disposition home or self-care (01) ==
LOC: ERS 01:10 → 2SW 06:11
PROVIDERS: ADMIT Internal Medicine; ATTEND Internal Medicine
DX: I11.0 Hypertensive heart disease with heart failure (principal); I50.33 Acute on chronic diastolic (congestive) heart failure; E78.5 Hyperlipidemia, unspecified; E11.9 Type 2 diabetes mellitus without complications; Z86.73 Personal history of transient ischemic attack (TIA), and cerebral infarction without residual deficits; Z79.82 Long term (current) use of aspirin; Z79.899 Other long term (current) drug therapy; Z88.0 Allergy status to penicillin; Z88.2 Allergy status to sulfonamides; Z91.048 Other nonmedicinal substance allergy status; Z79.4 Long term (current) use of insulin; Z91.14 Patient's other noncompliance with medication regimen
CPT/HCPCS: 36415; 36416; 71045; 78582; 80048; 80053; 83880; 84484; 85025; 85379; 93005; 96372; 96374; 96375; 96376; A9540; A9558; G0378; J1815; J1940; J2001; J3010; Q0162

== ENCOUNTER 2019-07-03 15:31 | Emergency (ER) | payer OTHER ==
[2019-07-03 18:21] LABS: #Eosinphils 0.3 thou/uL (0.0-0.7); #Lymphocytes 2.1 thou/uL (1.20-3.40); #Monocytes 0.5 thou/uL (0.11-0.59); #Neutrophils 6.5 thou/uL (1.40-6.50); %Basophils 0.3 % (0.0-1.0); %Eosinophils 3.3 % (0.0-10.0); %Lymphocytes 22.6 % (21.0-51.0); %Monocytes 5.3 % (0.0-10.0); %Neutrophils 68.6 % (42.0-75.0); Hemoglobin 9.4 g/dL (12.0-16.0); Mean Corpuscular HGB CONC 31.7 g/dL (32.0-36.0); Mean Corpuscular Hemoglobin 25.4 pg (27.0-31.0); Mean Platelet Volume 10.5 fL (7.4-10.4); Platelet Count 184 thou/uL (130-400); RBC Distribution Width 15.7 % (11.5-14.5); Red Blood Cell (RBC) Count 3.69 mill/uL (4.20-5.40); White Blood Cell (WBC) Count 9.4 thou/uL (4.8-10.8)
[2019-07-03 18:40] LABS: ALT (SGPT) 9 U/L (8-55); AST (SGOT) 26 U/L (5-34); Albumin 3.4 g/dL (3.5-5.0); Alkaline Phosphatase 87 U/L (40-110); Anion Gap 15 mmol/L (10-20); BUN (Urea Nitrogen) 26 mg/dL (9.8-20.1); Bilirubin, Total 0.4 mg/dL (0.2-1.2); Calc. Creatinine Clearance 0 mL/min (70-130); Calcium 7.9 mg/dL (7.8-10.44); Carbon Dioxide 26 mmol/L (22-29); Chloride 100 mmol/L (98-107); Estimated GFR-MDRD 28; Globulin 5.5 g/dL (2.4-3.5); Glucose 221 mg/dL (70-105); Potassium 4.1 mmol/L (3.5-5.1); Protein, Total 8.9 g/dL (6.0-8.3); Sodium 137 mmol/L (136-145)
== END 2019-07-03 18:43 | disposition home or self-care (01) ==
LOC: ERS 15:31
DX: E11.649 Type 2 diabetes mellitus with hypoglycemia without coma (principal); I25.10 Atherosclerotic heart disease of native coronary artery without angina pectoris; I10 Essential (primary) hypertension; E11.9 Type 2 diabetes mellitus without complications; E78.5 Hyperlipidemia, unspecified; Z86.73 Personal history of transient ischemic attack (TIA), and cerebral infarction without residual deficits
CPT/HCPCS: 36416; 80053; 85025; 99285

== ENCOUNTER 2019-07-22 12:24 | Inpatient (IN) | payer OTHER ==
[2019-07-22] MEDS ORDERED: Nitroglycerin 2% Ointment 1 INCH/1 GM Packet ONE (12:35)
[2019-07-22] MEDS ORDERED: Nitroglycerin 0.4 MG TAB 1 EACH ONE (12:35)
[2019-07-22] MEDS ORDERED: Furosemide 100 MG/10 ML VIAL ONE (12:49)
[2019-07-22] MEDS ORDERED: methylPREDNISolone Sod Succ/PF 125 MG/2 ML VIAL ONE (12:49)
[2019-07-22] MEDS ORDERED: Nitroglycerin 50 MG/250 ML BOT 250 ML ONE (12:49)
[2019-07-22 12:50] LABS: Actual Bicarbonate (HCO3a) 24.5 mEq/L (22-28); Analyzer IN Cardio ER; Calcium, Ionized 0.94 mmol/L (1.12-1.30); Carboxyhemoglobin (COHb) 0.3 gm% (0.0-3.0); Hemoglobin (Hb) 10.5 g/dL (12.0-16.0); Potassium - ABG Lab 3.88 mmol/L (3.70-5.30)
[2019-07-22 13:08] LABS: O2 Tension (PaO2) 45.8 mmHg (> 80.0); pH, Arterial 7.21 (7.35-7.45)
[2019-07-22 13:09] LABS: Puncture Site LRA
[2019-07-22 13:22] LABS: #Basophils 0.1 thou/uL (0.0-0.2); #Eosinphils 0.5 thou/uL (0.0-0.7); #Lymphocytes 3.5 thou/uL (1.20-3.40); #Monocytes 0.9 thou/uL (0.11-0.59); #Neutrophils 8.4 thou/uL (1.40-6.50); %Basophils 0.7 % (0.0-1.0); %Eosinophils 3.7 % (0.0-10.0); %Lymphocytes 26.2 % (21.0-51.0); %Monocytes 6.4 % (0.0-10.0); %Neutrophils 63.1 % (42.0-75.0); Hemoglobin 8.8 g/dL (12.0-16.0); Mean Corpuscular HGB CONC 30.7 g/dL (32.0-36.0); Mean Corpuscular Volume 81.4 fL (78.0-98.0); Mean Platelet Volume 10.6 fL (7.4-10.4); Platelet Count 262 thou/uL (130-400); RBC Distribution Width 16.5 % (11.5-14.5); Red Blood Cell (RBC) Count 3.52 mill/uL (4.20-5.40); White Blood Cell (WBC) Count 13.3 thou/uL (4.8-10.8)
--- NOTE | 2019-07-22 13:25 | RAD ---
CHEST 1 VIEW: HISTORY: Dyspnea. COMPARISON: Radiograph 04/21/2019. FINDINGS: There are extensive alveolar and interstitial opacities. Small to moderate effusions. Heart size is enlarged. No pneumothorax. IMPRESSION: Findings of decompensated congestive heart failure versus multifocal pneumonia. Decompensated conges tive heart failure is felt more likely. POS: TPC
[2019-07-22 13:37] LABS: Actual Bicarbonate (HCO3a) 23.8 mEq/L (22-28); Analyzer IN Cardio ER; Base Excess (BEa) -1.9 mEq/L (-2.0 to +3.0); Calcium, Ionized 0.88 mmol/L (1.12-1.30); Carboxyhemoglobin (COHb) 0.2 gm% (0.0-3.0); Hemoglobin (Hb) 8.9 g/dL (12.0-16.0); Potassium - ABG Lab 3.48 mmol/L (3.70-5.30); pH, Arterial 7.34 (7.35-7.45)
[2019-07-22 13:39] LABS: O2 Tension (PaO2) 53.6 mmHg (> 80.0); Puncture Site RRA
[2019-07-22 13:52] LABS: ALT (SGPT) 10 U/L (8-55); AST (SGOT) 23 U/L (5-34); Albumin 3.6 g/dL (3.5-5.0); Alkaline Phosphatase 112 U/L (40-110); Anion Gap 13 mmol/L (10-20); BUN (Urea Nitrogen) 26 mg/dL (9.8-20.1); Bilirubin, Total 0.3 mg/dL (0.2-1.2); Calc. Creatinine Clearance 0 mL/min (70-130); Calcium 6.7 mg/dL (7.8-10.44); Carbon Dioxide 25 mmol/L (22-29); Chloride 103 mmol/L (98-107); Estimated GFR-MDRD 29; Globulin 4.5 g/dL (2.4-3.5); Glucose 429 mg/dL (70-105); Potassium 3.7 mmol/L (3.5-5.1); Protein, Total 8.1 g/dL (6.0-8.3); Sodium 137 mmol/L (136-145)
[2019-07-22 16:27] LABS: Lactic Acid 1.4 mmol/L (0.5-2.2)
[2019-07-22 16:42] LABS: Troponin I 1.299 ng/mL (< 0.028)
[2019-07-22] MEDS ORDERED: Labetalol HCl 100 MG/20 ML VIAL SLOW IVP PRN (17:14)
[2019-07-22] MEDS ORDERED: Carvedilol 6.25 MG TAB PO SCH (17:15)
[2019-07-22] MEDS: Calcium Gluc 4.6 MEQ/10 ML (100 MG/ML) SLOW IVP SCH ×2 (18:51→22:59)
[2019-07-22] MEDS: Nitroglycerin 50 MG/250 ML BOT 250 ML IVPB SCH ×2 (19:22→22:59)
[2019-07-22 19:43] LABS: Troponin I 3.548 ng/mL (< 0.028)
[2019-07-22 19:56] LABS: Amphetamine Not Detected (NotDetected); Barbiturates Screen Not Detected (NotDetected); Benzodiazepine Screen Not Detected (NotDetected); Cocaine Metabolite Screen Not Detected (NotDetected); Medtox Control Line Valid? VALID (VALID); Medtox Reader # READER 4; Methadone Not Detected (NotDetected); Methamphetamine Not Detected (NotDetected); Opiate Screen Not Detected (NotDetected); Oxycodone Screen Not Detected (NotDetected); Phencyclidine (PCP) Not Detected (NotDetected); THC/Cannabinoid Screen Not Detected (NotDetected); Tricyclic Screen Not Detected (NotDetected)
[2019-07-22] MEDS ORDERED: Enoxaparin Sodium 60 MG/0.6 ML SYRINGE SC SCH (20:15)
[2019-07-22] MEDS: hydrALAZINE 25 MG TAB PO SCH (20:37)
--- NOTE | 2019-07-22 23:42 | CON ---
DATE OF CONSULTATION: 07/22/2019 SERVICE: Pulmonary Medicine. REASON FOR CONSULTATION: Respiratory failure. HISTORY OF PRESENT ILLNESS: The patient is a 58-year-old female with past medical history significant for hypertension. She had a 3-day history of increasing difficulty breathing, orthopnea, paroxysmal nocturnal dyspnea, and dyspnea on exertion. She was not having any fevers, chills, myalgia, headache, nausea, vomiting, or diarrhea. Otherwise, she was in her usual state of health. She finally got to the point where she could not make it anymore and presented to the emergency department. Her saturations were extraordinarily low despite giving her 100% FiO2 via non-rebreather. Ultimately, she was escalated to BiPAP. Those pressures were titrated upward. Originally, her saturations were in the mid 70s on 100% FiO2, and over a period of a couple of hours, she tolerated less FiO2 and her saturations improved. Her tachypnea also improved. She currently can talk in full sentences, though she has persistent tachypneic. She has 2 to 3 word conversational dyspnea. PAST MEDICAL HISTORY: 1. Hypertension. 2. Type 2 diabetes mellitus. 3. Chronic diastolic heart failure. 4. Dyslipidemia. 5. History of CVA. PAST SURGICAL HISTORY: 1. Herniorrhaphy. 2. section. ALLERGIES: PENICILLIN AND SULFA. MEDICATIONS: List of the patient's inpatient medications were reviewed. Multiple updates were made at this time. SOCIAL HISTORY: Negative for known alcohol, tobacco, or illicit drug use. She lives with family members. She has no exposure to chemicals, dust, asbestos, or tuberculosis. REVIEW OF SYSTEMS: General, head, ears, eyes, nose, throat, cardiovascular, respiratory, GI, , musculoskeletal, neurologic, and skin are negative except as mentioned in the HPI. PHYSICAL EXAMINATION: VITAL SIGNS: Afebrile, pulse 78, blood pressure 140/65, respirations 16, saturation 95% on room air. GENERAL: The patient is awake and alert, in no apparent distress. LUNGS: Very good air entry. Extensive crackling is present. There is no prolonged expiratory phase or wheezing present. HEART: Normal rate. Regular. ABDOMEN: Soft, nontender, and nondistended. Bowel sounds are positive. MUSCULOSKELETAL: No cyanosis or clubbing. There is diffuse 1 to 2+ edema throughout. NEUROLOGIC: Grossly nonfocal. LABORATORY DATA: WBC 13.3, hemoglobin 8.8, platelets 262,000. PH 7.34, pCO2 45 , PO2 53 on 70% FiO2 at that time. Creatinine 2.09, which is at baseline. Basic metabolic profile and liver function studies are otherwise unremarkable. Calcium is 6.7. Ionized calcium was quite low. Liver function studies are otherwise unremarkable. Troponin is up trending to 1.299, BNP 290, which is above her baseline. IMAGING DATA: Chest x-ray demonstrates classic findings consistent with cardiogenic pulmonary edema. ASSESSMENT: 1. Acute hypoxic respiratory failure. 2. Hypertensive emergency. 3. Acute on chronic diastolic heart failure. 4. [id number] myocardial infarction. 5. Hypocalcemia. DISCUSSION AND PLAN: I will replace the calcium. We are going to aggressively diurese the patient through time. This should help with both her blood pressure , and volume status. I have spent significant time titrating BiPAP at bedside. We will wean away the nitroglycerin drip as tolerated. I will also add a urine drug screen. Repeat laboratories will be obtained tomorrow morning. Pulmonary/Critical Care will follow very closely. Cardiology consultation will be considered, particularly if the troponin continues to trend upward. Critical care time: 30 minutes. Job ID: [id number]
--- NOTE | 2019-07-23 01:04 | HP ---
CHIEF COMPLAINT: Shortness of breath. HISTORY OF PRESENT ILLNESS: Ms. Harrison is a 58-year-old female with past medical history of hypertension, hypertensive heart disease, diabetes, CHF, came in having shortness of breath for about 2 days, which has gotten worse today to the point she could not breathe. She did not have any chest pain. No nausea or vomiting. No headache. The patient's daughter called EMS. EMS found the patient with respiratory distress. She was given neb treatment on the way to the hospital, the patient became more hypertensive and more short of breath. She was on BiPAP. In the ER, the patient was evaluated and found to be tachycardic as well as hypertensive and tachypneic. Her heart rate was 128, blood pressure was 190/135 , and respirations 40 per minute initially, went up to 60 and saturation 80% on face mask initially, she was put on 100% BiPAP. The patient was found to have acute pulmonary edema. She has received Lasix 80 mg, also received Solu-Medrol 125 bolus. She was started on nitroglycerin infusion because of a markedly elevated blood pressure, received sublingual nitroglycerin as well. The patient was still tachypneic. She was put on BiPAP and transferred to ICU, where she is still on BiPAP. Her respirations are 30 per minute now, she is breathing slightly better. Blood pressure is also slightly better. The patient was admitted in the hospital for CHF in December. PAST MEDICAL HISTORY: 1. Hypertension. 2. Diabetes mellitus. 3. Diastolic heart failure. 4. Hyperlipidemia. 5. Status post CVA. 6. History of hypertensive heart disease. PAST SURGICAL HISTORY: 1. Status post hernia repair. 2. Status post . CURRENT MEDICATIONS: The patient is on: 1. KCl 10 mEq b.i.d. 2. Lisinopril 40 mg daily. 3. Insulin 70/30, 20 units in the morning and 10 units in the evening. 4. Lasix 40 mg b.i.d. 5. Coreg 3.125 b.i.d. 6. Aspirin 325 mg daily. 7. Tylenol p.r.n. ALLERGIES: PENICILLIN AND SULFA. FAMILY HISTORY: Nothing contributory. SOCIAL HISTORY: The patient lives with her daughter. No history of smoking. No history of alcohol. REVIEW OF SYSTEMS: CARDIOVASCULAR: No chest pain. Has shortness of breath. RESPIRATORY: No fever or cough. GASTROINTESTINAL: No nausea or vomiting. CENTRAL NERVOUS SYSTEM: No headache. No dizziness. PHYSICAL EXAMINATION: GENERAL: The patient is alert, awake, oriented x3. VITAL SIGNS: Temperature 98, pulse 94, blood pressure 140/70, respirations 30 per minute, saturation 96% on BiPAP. HEENT: Head is normocephalic, atraumatic. Pupils are equal and reactive to light. Nasopharynx is pale and dry. NECK: Supple. No JVD. LUNGS: Breath sounds diminished bilaterally. Percussion dull bilaterally. Rales present bilaterally. HEART: S1 and S2, regular. ABDOMEN: Soft. No distention. No tenderness. No organomegaly. Bowel sounds present. RECTAL: Deferred. CENTRAL NERVOUS SYSTEM: No new deficits. LABORATORY DATA: CBC shows WBC 13, hemoglobin 8.8, hematocrit 28, platelets 262. ABG showed pH 7.21, pco2 of 60 and po2 of 50 Repeat ABG showed pH of 7.34, pCO2 of 45, pO2 of 53, saturation 83%. Metabolic panel showed sodium 137, potassium 3.7, chloride 103, CO2 of 23, BUN 26, creatinine 2. BNP was 290. Troponin I 0.20. ASSESSMENT: 1. Acute respiratory failure secondary to acute pulmonary edema.R/U acute CO. 2. Hypertensive urgency. 3. Diastolic heart failure. 4. Insulin-dependent diabetes mellitus. 5. Hyperlipidemia. 6. Status post cerebrovascular accident. PLAN: 1. Admit to CCU, close monitoring. 2. BiPAP. 3. Lasix 80 mg IVP q.12 hours. 4. DuoNeb 1 unit q.i.d. 5. Nitroglycerin infusion. 6. Chest x-ray in the morning. 7. Pulmonary consult. 8. We will continue her home medications. 9. The patient critically ill. Prognosis remained guarded. Job ID: [id number] [facility]
[2019-07-23 05:53] LABS: Phosphorus 4.5 mg/dL (2.3-4.7)
[2019-07-23 05:55] LABS: Anion Gap 15 mmol/L (10-20); BUN (Urea Nitrogen) 35 mg/dL (9.8-20.1); Calc. Creatinine Clearance 38 mL/min (70-130); Calcium 6.5 mg/dL (7.8-10.44); Carbon Dioxide 23 mmol/L (22-29); Chloride 101 mmol/L (98-107); Estimated GFR-MDRD 26; Glucose 503 mg/dL (70-105); Magnesium 1.9 mg/dL (1.6-2.6); Potassium 3.8 mmol/L (3.5-5.1); Sodium 135 mmol/L (136-145)
[2019-07-23] MEDS ORDERED: Furosemide 100 MG/10 ML VIAL SLOW IVP SCH (06:00)
[2019-07-23 06:30] LABS: CKMB 8.4 ng/mL (0-6.6)
[2019-07-23] MEDS ORDERED: Dextrose 5% in Water 1,000 ML IV PRN (06:31)
[2019-07-23] MEDS ORDERED: Dextrose 50% Abboject 50 ML SYRINGE IVP PRN (06:31)
[2019-07-23] MEDS ORDERED: Insulin Regular 300 UNITS/3 ML VIAL SC PRN (06:31)
[2019-07-23] MEDS: Carvedilol 6.25 MG TAB PO SCH ×2 (08:56→17:55)
[2019-07-23] MEDS: hydrALAZINE 25 MG TAB PO SCH ×3 (09:30→20:41)
[2019-07-23] MEDS: Aspirin 81 mg Enteric Coated Tablet PO SCH (09:30)
[2019-07-23] MEDS ORDERED: Insulin Glargine 20 UNITS in Pre-Filled Syringe 1 EACH SC SCH (12:00)
[2019-07-23] MEDS ORDERED: Calcium Gluc 4.6 MEQ/10 ML (100 MG/ML) SLOW IVP SCH (12:15)
--- NOTE | 2019-07-23 12:21 | CON ---
DATE OF CONSULTATION: 07/23/2019 REASON FOR CONSULTATION: Non-STEMI and hypertensive emergency. HISTORY OF PRESENT ILLNESS: Ms. Harrison is a 58-year-old female, who comes to the hospital for shortness of breath. She had 3 days of worsening shortness of breath with PND, orthopnea, and dyspnea on exertion first and then at rest to the point where she had to come in. She was seen and placed on non-rebreather and eventually on a BiPAP and her blood pressure was treated with IV nitroprusside and she was admitted. During her admission, troponins were drawn and they were positive. Cardiology is being consulted for all this. On my evaluation, Ms. Harrison is sleeping, but easily arousable. She is able to converse, but I have to keep waking her up. She denies any chest pain, tightness, or pressure. Her blood pressure is back to normal. PAST MEDICAL HISTORY: 1. Hypertension. 2. Type 2 diabetes. 3. Chronic diastolic heart failure. 4. Hyperlipidemia. 5. History of CVA in the past. SURGICAL HISTORY: 1. Hernia repair. 2. . OUTPATIENT MEDICATIONS: 1. Potassium chloride. 2. Lisinopril 40 mg a day. 3. Insulin NPH 70/30. 4. Furosemide 40 mg twice a day. 5. Carvedilol 3.125 b.i.d. 6. Aspirin 325 a day. 7. Tylenol p.r.n. ALLERGIES: PENICILLIN, SULFA, AND TIDE SOAP. SOCIAL HISTORY: No alcohol, tobacco, or drugs. FAMILY HISTORY: Noncontributory. REVIEW OF SYSTEMS: A 12-point review of systems was done and was found to be negative other than stated in the History of Present Illness. PHYSICAL EXAMINATION: VITAL SIGNS: Temperature 98.3, pulse 98, respiratory rate 27, saturating 97% on room air, and blood pressure 112/62. GENERAL: Awake, alert, and oriented x3. No distress. HEENT: Normocephalic, atraumatic. NECK: Supple. LUNGS: Clear. CARDIOVASCULAR: S1 and S2. No S3 or S4. There is a grade 2/6 systolic murmur at the right upper sternal border. ABDOMEN: Soft. Positive bowel sounds. EXTREMITIES: No edema. SKIN: Warm and dry. LABORATORY DATA: Laboratory work was reviewed. CBC with a white count of 13, hemoglobin of 8.8, hematocrit of 28, and platelet count of 262. ABG was reviewed. Chemistries; BUN of 35, creatinine of 2.31. Troponin went from 0.02, then 1.2, 3.5, and now 4.2 and a CK-MB of 8.4. Toxicology was negative. IMAGING DATA: EKG was reviewed. Chest x-ray showed findings of heart failure versus multifocal pneumonia. ASSESSMENT AND PLAN: 1. Acute on chronic diastolic heart failure. 2. Vez-IO-opowmphan myocardial infarction. 3. Hypertensive emergency. 4. Acute on chronic kidney disease. PLAN: 1. Wean IV nitroprusside as her blood pressure is doing much better. 2. We would continue full anticoagulation with Lovenox subcu for her non-STEMI. 3. We will plan on doing a left heart catheterization in the next 24 to 48 hours, probably on Thursday as long as creatinine does not keep rising and anemia does not keep dropping. 4. Current blood pressure regimen actually is dropping her blood pressure quite well. Thank you for letting us to participate in the care of your patient. We will follow. 30 minutes of critical care time. Job ID: [id number]
--- NOTE | 2019-07-23 12:29 | PRG ---
DATE OF SERVICE: 07/23/2019 SERVICE: Pulmonary Medicine. INTERVAL HISTORY: The patient is doing fine from respiratory standpoint. She has been weaned down from 100% FiO2, saturating in the mid 70s to room air saturating in the low 90s. She indicates that her breathing is comfortable. She has no complaints of chest discomfort, nausea, or vomiting. Otherwise, she is in her usual state of health. PHYSICAL EXAMINATION: VITAL SIGNS: Afebrile, pulse 98, blood pressure 131/74, respirations 27, saturation 92% on room air. GENERAL: The patient is awake and alert, in no apparent distress. LUNGS: Decent air entry. Crackles are still present. There is no prolonged expiratory phase or wheezing appreciated. HEART: Normal rate and regular. ABDOMEN: Soft, nontender, nondistended. Bowel sounds are positive. MUSCULOSKELETAL: No cyanosis or clubbing. There is no pitting in the bilateral lower extremities. NEUROLOGIC: Grossly nonfocal. LABORATORY DATA: Creatinine 2.31 and gently up trending, BUN 35. Basic metabolic profile is otherwise unremarkable. Calcium 6.5, magnesium 1.9, phosphorus 4.5. Troponin is up trending to 4.212. Urine drug screen is unremarkable. ASSESSMENT: 1. Acute hypoxic respiratory failure, resolved. 2. Hypertensive emergency. 3. Acute on chronic diastolic heart failure. 4. Qdc-KV-tojnvykdc myocardial infarction. 5. Hypocalcemia. DISCUSSION AND PLAN: We will continue replacing the calcium. The patient can be transitioned out of the ICU to the telemetry unit. Cardiology consultation is currently pending. She had a rapid resolution in her respiratory issues. As such, my suspicion is that this was all cardiac mediated. I will introduce a diet today. Job ID: [id number]
[2019-07-23] MEDS: Insulin Regular 300 UNITS/3 ML VIAL SC PRN ×2 (12:46→18:10)
[2019-07-23] MEDS: HumaLOG 300 UNITS/3 ML VIAL SC SCH ×2 (18:09→20:40)
[2019-07-24] MEDS: Acetaminophen 325 MG TAB PO PRN ×2 (01:35→15:51)
[2019-07-24] MEDS ORDERED: Furosemide 100 MG/10 ML VIAL SLOW IVP SCH (06:00)
[2019-07-24 07:36] LABS: Anion Gap 14 mmol/L (10-20); BUN (Urea Nitrogen) 41 mg/dL (9.8-20.1); Calc. Creatinine Clearance 38 mL/min (70-130); Calcium 6.9 mg/dL (7.8-10.44); Carbon Dioxide 27 mmol/L (22-29); Chloride 103 mmol/L (98-107); Estimated GFR-MDRD 26; Glucose 180 mg/dL (70-105); Potassium 3.5 mmol/L (3.5-5.1); Sodium 140 mmol/L (136-145)
[2019-07-24] MEDS: HumaLOG 300 UNITS/3 ML VIAL SC SCH ×3 (09:04→18:46)
[2019-07-24] MEDS: Aspirin 81 mg Enteric Coated Tablet PO SCH (09:05)
[2019-07-24] MEDS: Carvedilol 6.25 MG TAB PO SCH ×2 (09:05→15:51)
[2019-07-24] MEDS: Insulin Glargine 20 UNITS in Pre-Filled Syringe 1 EACH SC SCH (09:05)
[2019-07-24] MEDS: hydrALAZINE 25 MG TAB PO SCH ×3 (09:05→22:26)
--- NOTE | 2019-07-24 18:20 | PDOC.CPN ---
- Subjective Date: 07/24/19 Time: 18:17 Interval history: She is doing better. No chest pain or tightness. - Review of Systems General: denies: fever/chills, weight/appetite/sleep changes, night sweats, fatigue Respiratory: denies: cough, congestion, shortness of breath, exercise intolerance Cardiovascular: reports: edema. denies: chest pain, palpitation, paroxysmal nocturnal dyspnea, orthopnea Gastrointestinal: denies: nausea, vomiting, diarrhea, constipation, abd pain, GI bleeding Musculoskeletal: denies: pain, tenderness, stiffness, swelling, arthritis/ arthralgias Neurological: denies: numbness, syncope, seizure, weakness - Objective Allergies/Adverse Reactions: Allergies Allergy/AdvReac Type Severity Reaction Status Date / Time Penicillins Allergy Rash Verified 01/04/19 06:27 Sulfa (Sulfonamide Allergy Rash Verified 01/04/19 06:27 Antibiotics) TIDE SOAP Allergy Rash Uncoded 02/03/18 15:35 Visit Medications: Current Medications Acetaminophen (Tylenol) 650 mg PO Q6H PRN PRN Reason: Mild Pain (1-3) Last Admin: 07/24/19 15:51 Dose: 650 mg Aspirin (Ecotrin) 81 mg PO DAILY [facility] Last Admin: 07/24/19 09:05 Dose: 81 mg Carvedilol (Coreg) 12.5 mg PO BID-[facility] Last Admin: 07/24/19 15:51 Dose: 12.5 mg Dextrose/Water (Dextrose 50%) 25 gm IVP PRN PRN PRN Reason: HYPOGLYCEMIA PROTOCOL Furosemide (Lasix) 60 mg SLOW IVP 0600 [facility] Last Admin: 07/24/19 05:55 Dose: 60 mg Glucagon (Glucagon) 1 mg IM PRN PRN PRN Reason: HYPOGLYCEMIA PROTOCOL Hydralazine HCl (Apresoline) 25 mg PO TID [facility] Last Admin: 07/24/19 15:51 Dose: 25 mg Dextrose/Water (D5w) 1,000 mls @ 0 mls/hr IV INF PRN PRN Reason: HYPOGLYCEMIA PROTOCOL Insulin Glargine 20 units/ (Miscellaneous Medication) 0.2 mls @ 0 mls/hr SC QAM [facility] Last Admin: 07/24/19 09:05 Dose: 0.2 mls Insulin Human Lispro (Humalog) 10 units SC ACHS [facility] Last Admin: 07/24/19 12:53 Dose: 10 unit Insulin Human Regular (Humulin R) 0 units SC .AGGRESSIVE SLIDING PRN; Protocol PRN Reason: AGGRESSIVE SLIDING SCALE Last Admin: 07/23/19 18:10 Dose: 10 unit Insulin Human Regular (Humulin R) 0 units SC .BEDTIME SLIDING SC PRN; Protocol PRN Reason: BEDTIME SLIDING SCALE Last Admin: 07/23/19 20:44 Dose: 5 unit Labetalol HCl (Normodyne) 20 mg SLOW IVP Q15MIN PRN PRN Reason: SBP Greater Than 180 Vital Signs & Weight: Vital Signs Temp Pulse Resp BP BP Pulse Ox 07/24/19 16:00 98.8 F 79 16 114/53 L 96 07/24/19 15:51 75 122/80 07/24/19 12:00 98.6 F 75 16 120/58 L 98 07/24/19 09:05 89 122/80 07/24/19 07:51 98.2 F 89 18 118/54 L 95 07/24/19 07:35 96 Weight 203 lb 7.787 oz - Physical Exam General: alert & oriented x3 HEENT: mucus membranes moist Neck: supple neck Cardiac: regular rate and rhythm, no murmur Lungs: clear to auscultation Neuro: grossly intact Abdomen: active bowel sounds, soft, non-tender Extremities: 1+ LE edema Skin: clear Musculoskeletal: no pain - Labs Result Diagrams: 07/22/19 13:07 07/24/19 06:42 Troponin/CKMB CK-MB (CK-2) 8.4 ng/mL (0-6.6) H* 07/23/19 05:19 Troponin I 4.212 ng/mL (< 0.028) H* 07/23/19 05:19 - Telemetry Sinus rhythms and dysrhythmias: sinus rhythm - Assessment/Plan Assessment/Plan: 1. NSTEMI 2. Hypertensive emergency 3. Acute on chronic diastolic CHF 4. CKD stage 4. PLAN: - I spoke with her about her creatinine being high and the risk of renal impairment following a LHC. It is not too high but it exists. She does not want to put her kidneys at risk. She has declined a LHC given her current creatinine level. This is not unreasonable. If her creatinine improves in the future will consider LHC at that time. - Continue medical therapy for now, - BP very well controlled on current regimen. - Switch to PO lasix tomorrow. - Home soon if she remains stable.
[2019-07-24 18:43] LABS: #Basophils 0.1 thou/uL (0.0-0.2); #Eosinphils 0.4 thou/uL (0.0-0.7); #Lymphocytes 2.7 thou/uL (1.20-3.40); #Neutrophils 8.5 thou/uL (1.40-6.50); %Basophils 0.7 % (0.0-1.0); %Lymphocytes 21.4 % (21.0-51.0); %Monocytes 7.7 % (0.0-10.0); %Neutrophils 67.3 % (42.0-75.0); Hemoglobin 7.6 g/dL (12.0-16.0); Mean Corpuscular HGB CONC 32.5 g/dL (32.0-36.0); Mean Corpuscular Hemoglobin 25.9 pg (27.0-31.0); Mean Corpuscular Volume 79.9 fL (78.0-98.0); Mean Platelet Volume 9.9 fL (7.4-10.4); Platelet Count 202 thou/uL (130-400); RBC Distribution Width 16.3 % (11.5-14.5); Red Blood Cell (RBC) Count 2.93 mill/uL (4.20-5.40); White Blood Cell (WBC) Count 12.7 thou/uL (4.8-10.8)
[2019-07-24 18:58] LABS: Anion Gap 13 mmol/L (10-20); BUN (Urea Nitrogen) 44 mg/dL (9.8-20.1); Calc. Creatinine Clearance 37 mL/min (70-130); Calcium 6.9 mg/dL (7.8-10.44); Carbon Dioxide 28 mmol/L (22-29); Chloride 101 mmol/L (98-107); Estimated GFR-MDRD 25; Glucose 94 mg/dL (70-105); Potassium 3.4 mmol/L (3.5-5.1); Sodium 139 mmol/L (136-145)
[2019-07-24] MEDS ORDERED: Heparin 25,000 units/D5W 500 ML IVPB SCH (20:30)
--- NOTE | 2019-07-24 20:59 | PRG ---
DATE OF SERVICE: 07/24/2019 SERVICE: Pulmonary Medicine. INTERVAL HISTORY: The patient is doing fine from respiratory standpoint. She is on 2 L nasal cannula. Saturations are fine. She was in a deep sleep when I went into the room. I woke her up, she woke up comfortably. She is able to follow all commands. She is not having any shortness of breath or chest discomfort. There are no significant overnight events. PHYSICAL EXAMINATION: VITAL SIGNS: Afebrile, pulse 76, blood pressure 114/53, respirations 16, saturation 96% on 1 L nasal cannula. GENERAL: The patient is awake and alert, in no apparent distress. LUNGS: Decent air entry. There is certainly no prolonged expiratory phase or wheezing present. HEART: Normal rate, regular. ABDOMEN: Soft, nontender, nondistended. Bowel sounds are positive. MUSCULOSKELETAL: No cyanosis or clubbing. No pitting in bilateral lower extremities. NEUROLOGICAL: Grossly nonfocal. LABORATORY DATA: WBC 12.7 and downtrending, hemoglobin 7.6, and platelets 202,000. Creatinine 2.38 and roughly stable. Potassium 3.4. Basic metabolic profile is otherwise unremarkable. Calcium 6.9. Urine drug screen was previously unremarkable. IMAGING STUDIES: Echocardiogram demonstrates normal ejection fraction with 2/3 diastolic dysfunction. She has concentric left ventricular hypertrophy and dilated left atrium. Moderate mitral regurgitation is present. No signs of the aortic stenosis are present despite the fact there is significant valve calcification with reduced excursion. ASSESSMENT: 1. Acute hypoxic respiratory failure, resolved. 2. Hypertensive emergency. 3. Acute on chronic diastolic heart failure. 4. Iuc-LZ-whsioxyto myocardial infarction secondary to demand. 5. Hypocalcemia. 6. Obstructive sleep apnea. DISCUSSION AND PLAN: At this point, the patient has no further requirements for inpatient Pulmonary or Critical Care opinion. As such, I will sign off. Please call with additional questions or concerns through time. This patient would greatly benefit from an outpatient polysomnogram. I will arrange for her to see me in the outpatient settings that we can set this up. Job ID: [id number]
[2019-07-24] MEDS ORDERED: Calcium Gluconate 4.6 MEQ in Sodium Chloride 0.9% 100 ML IVPB SCH (21:00)
[2019-07-24 21:30] LABS: Hemoglobin 7.5 g/dL (12.0-16.0); Platelet Count 221 thou/uL (130-400)
[2019-07-24] MEDS: Rosuvastatin 20 MG TAB PO SCH ×2 (22:17→22:22)
[2019-07-24] MEDS: HumuLIN 70/30 (300 UNITS/3 ML VIAL) SC SCH (22:38)
[2019-07-24] MEDS: Heparin 10,000 UNITS/ 10 ML VIAL SLOW IVP SCH (22:39)
[2019-07-25] MEDS: Acetaminophen 325 MG TAB PO PRN ×2 (01:59→16:59)
[2019-07-25 05:10] LABS: #Eosinphils 0.5 thou/uL (0.0-0.7); #Lymphocytes 3.5 thou/uL (1.20-3.40); #Monocytes 0.7 thou/uL (0.11-0.59); #Neutrophils 6.8 thou/uL (1.40-6.50); %Basophils 0.3 % (0.0-1.0); %Eosinophils 4.3 % (0.0-10.0); %Lymphocytes 30.2 % (21.0-51.0); %Monocytes 5.8 % (0.0-10.0); %Neutrophils 59.4 % (42.0-75.0); Hemoglobin 7.6 g/dL (12.0-16.0); Mean Corpuscular HGB CONC 31.2 g/dL (32.0-36.0); Mean Corpuscular Hemoglobin 25.2 pg (27.0-31.0); Mean Corpuscular Volume 80.7 fL (78.0-98.0); Mean Platelet Volume 10.7 fL (7.4-10.4); Platelet Count 198 thou/uL (130-400); RBC Distribution Width 16.2 % (11.5-14.5); Red Blood Cell (RBC) Count 3.02 mill/uL (4.20-5.40); White Blood Cell (WBC) Count 11.5 thou/uL (4.8-10.8)
[2019-07-25 05:16] LABS: Anion Gap 14 mmol/L (10-20); BUN (Urea Nitrogen) 44 mg/dL (9.8-20.1); Calc. Creatinine Clearance 36 mL/min (70-130); Calcium 6.8 mg/dL (7.8-10.44); Carbon Dioxide 26 mmol/L (22-29); Chloride 99 mmol/L (98-107); Estimated GFR-MDRD 25; Glucose 168 mg/dL (70-105); Potassium 3.3 mmol/L (3.5-5.1); Sodium 136 mmol/L (136-145)
[2019-07-25] MEDS: Heparin 10,000 UNITS/ 10 ML VIAL SLOW IVP SCH (06:01)
[2019-07-25] MEDS ORDERED: Furosemide 40 MG TAB PO SCH (07:30)
[2019-07-25] MEDS: Insulin Glargine 20 UNITS in Pre-Filled Syringe 1 EACH SC SCH (08:50)
[2019-07-25] MEDS: Aspirin 81 mg Enteric Coated Tablet PO SCH (08:50)
[2019-07-25] MEDS: hydrALAZINE 25 MG TAB PO SCH ×3 (08:50→20:33)
[2019-07-25] MEDS: Potassium Chloride 10 MEQ TAB PO SCH ×2 (08:50→17:00)
[2019-07-25] MEDS: Carvedilol 6.25 MG TAB PO SCH ×2 (08:50→16:59)
[2019-07-25] MEDS: HumuLIN 70/30 (300 UNITS/3 ML VIAL) SC SCH ×2 (08:51→20:35)
[2019-07-25] MEDS: Insulin Regular 300 UNITS/3 ML VIAL SC PRN (11:57)
--- NOTE | 2019-07-25 12:12 | PRG ---
DATE OF SERVICE: 07/25/2019 SERVICE: Pulmonary Medicine. INTERVAL HISTORY: The patient is doing great from respiratory standpoint. I find her awake and conversive today. She is not having any dyspnea on exertion, fevers, or chills. She does not appear to be uncomfortable. She had a very good night last night and indicates she feels refreshed this morning. She has been titrated down to room air. Otherwise, there were no events. PHYSICAL EXAMINATION: VITAL SIGNS: Afebrile, pulse 81, blood pressure 115/56, respirations 17, and saturation 92% on room air. GENERAL: The patient is awake and alert, in no apparent distress. LUNGS: Very good air entry. There is no prolonged expiratory phase or crackles appreciated today. HEART: Normal rate and regular. ABDOMEN: Soft, nontender, and nondistended. Bowel sounds are positive. MUSCULOSKELETAL: No cyanosis or clubbing. There is no pitting in bilateral lower extremities. NEUROLOGIC: Grossly nonfocal. LABORATORY DATA: WBC 11.5, hemoglobin 7.6 and stable, platelets 198,000. PTT 63. Creatinine 2.4. Basic metabolic profile is otherwise unremarkable. Calcium remains low at 6.8. Urine drug screen was unremarkable previously. ASSESSMENT: 1. Acute hypoxic respiratory failure, resolved. 2. Hypertensive emergency, resolved. 3. Acute on chronic diastolic heart failure. 4. Ohn-WL-rnlwtoycw myocardial infarction. 5. Obstructive sleep apnea, strongly suspected. DISCUSSION AND PLAN: The patient is doing great from a respiratory standpoint. At this point, she has no further requirements for inpatient Pulmonary/Critical Care opinion, and I will sign off. I will arrange for see me in the outpatient setting with a polysomnogram. Call with additional questions or concerns or if the patient has a significant setback. Job ID: [id number]
[2019-07-25 14:57] LABS: PTT 154.3 SEC (22.9-36.1)
[2019-07-25] MEDS: Calcium Gluc 4.6 MEQ/10 ML (100 MG/ML) SLOW IVP SCH ×2 (15:19→19:29)
--- NOTE | 2019-07-25 16:49 | EKG ---
Test Reason : Blood Pressure : / mmHG Vent. Rate : 089 BPM Atrial Rate : 089 BPM P-R Int : 158 ms QRS Dur : 074 ms QT Int : 432 ms P-R-T Axes : 055 077 221 degrees QTc Int : 525 ms Normal sinus rhythm T wave abnormality, consider anterolateral ischemia Prolonged QT Abnormal ECG When compared with ECG of 21-APR-2019 12:19, QT has lengthened Confirmed by DR. Nico CORTEZ ([id number]) on 07/25/2019 4:48:45 PM Referred By: [email or web address] Confirmed By:DR. Nico CORTEZ
--- NOTE | 2019-07-25 17:51 | PDOC.CPN ---
- Subjective Date: 07/25/19 Time: 17:48 Interval history: She isdoing well. No chest pain, tightness, pressure, SOB. - Review of Systems General: denies: fever/chills, weight/appetite/sleep changes, night sweats, fatigue Respiratory: denies: cough, congestion, shortness of breath, exercise intolerance Cardiovascular: denies: chest pain, palpitation, edema, paroxysmal nocturnal dyspnea, orthopnea Gastrointestinal: denies: nausea, vomiting, diarrhea, constipation, abd pain, GI bleeding Musculoskeletal: denies: pain, tenderness, stiffness, swelling, arthritis/ arthralgias Neurological: denies: numbness, syncope, seizure, weakness - Objective Allergies/Adverse Reactions: Allergies Allergy/AdvReac Type Severity Reaction Status Date / Time Penicillins Allergy Rash Verified 01/04/19 06:27 Sulfa (Sulfonamide Allergy Rash Verified 01/04/19 06:27 Antibiotics) TIDE SOAP Allergy Rash Uncoded 02/03/18 15:35 Visit Medications: Current Medications Acetaminophen (Tylenol) 650 mg PO Q6H PRN PRN Reason: Mild Pain (1-3) Last Admin: 07/25/19 16:59 Dose: 650 mg Aspirin (Ecotrin) 81 mg PO DAILY [facility] Last Admin: 07/25/19 08:50 Dose: 81 mg Carvedilol (Coreg) 12.5 mg PO BID-[facility] Last Admin: 07/25/19 16:59 Dose: 12.5 mg Dextrose/Water (Dextrose 50%) 25 gm IVP PRN PRN PRN Reason: HYPOGLYCEMIA PROTOCOL Glucagon (Glucagon) 1 mg IM PRN PRN PRN Reason: HYPOGLYCEMIA PROTOCOL Heparin Sodium (Porcine) (Heparin 1,000 Units/Ml (10 Ml)) 0 units SLOW IVP ASDIR [facility]; Protocol Last Admin: 07/25/19 06:01 Dose: 2,769 unit Hydralazine HCl (Apresoline) 25 mg PO TID [facility] Last Admin: 07/25/19 15:17 Dose: 25 mg Dextrose/Water (D5w) 1,000 mls @ 0 mls/hr IV INF PRN PRN Reason: HYPOGLYCEMIA PROTOCOL Insulin Glargine 20 units/ (Miscellaneous Medication) 0.2 mls @ 0 mls/hr SC QAM [facility] Last Admin: 07/25/19 08:50 Dose: 0.2 mls Heparin Sodium/Dextrose (Heparin 25,000 Units/D5w 500 Ml) 500 mls @ 0 mls/hr IVPB INF [facility]; Protocol Last Admin: 07/24/19 22:37 Dose: 500 mls Insulin Human Isoph/Insulin Regular (Humulin 70/30) 25 units SC QAM [facility] Last Admin: 07/25/19 08:51 Dose: 25 unit Insulin Human Isoph/Insulin Regular (Humulin 70/30) 20 units SC HS [facility] Last Admin: 07/24/19 22:38 Dose: 20 unit Insulin Human Regular (Humulin R) 0 units SC .BEDTIME SLIDING SC PRN; Protocol PRN Reason: BEDTIME SLIDING SCALE Last Admin: 07/23/19 20:44 Dose: 5 unit Insulin Human Regular (Humulin R) 0 units SC .MILD SLIDING PRN; Protocol PRN Reason: MILD SLIDING SCALE Last Admin: 07/25/19 11:57 Dose: 2 unit Labetalol HCl (Normodyne) 20 mg SLOW IVP Q15MIN PRN PRN Reason: SBP Greater Than 180 Potassium Chloride (Klor-Con 10) 10 meq PO BID-[facility] Last Admin: 07/25/19 17:00 Dose: 10 meq Rosuvastatin Calcium (Crestor) 20 mg PO HS [facility] Last Admin: 07/24/19 22:22 Dose: 20 mg Torsemide (Demadex) [facility] [place] Vital Signs & Weight: Vital Signs Temp Pulse Pulse Pulse Resp BP BP 07/25/19 16:59 122/80 07/25/19 15:47 99.5 F 78 19 07/25/19 15:17 81 07/25/19 11:10 98 F 81 17 07/25/19 09:47 83 86 140/67 07/25/19 08:50 83 122/80 07/25/19 08:47 97.9 F 83 18 07/25/19 07:56 BP BP Pulse Ox 07/25/19 16:59 07/25/19 15:47 131/60 96 07/25/19 15:17 07/25/19 11:10 115/56 L 92 L 07/25/19 09:47 114/61 07/25/19 08:50 07/25/19 08:47 124/59 L 95 07/25/19 07:56 96 Weight 203 lb 12.8 oz - Physical Exam General: alert & oriented x3 HEENT: mucus membranes moist Neck: supple neck Cardiac: regular rate and rhythm, no murmur Lungs: clear to auscultation Neuro: grossly intact Abdomen: active bowel sounds, soft, non-tender Extremities: no edema Skin: clear Musculoskeletal: normal range of motion, no pain - Labs Result Diagrams: 07/25/19 04:54 07/25/19 04:54 Troponin/CKMB CK-MB (CK-2) 8.4 ng/mL (0-6.6) H* 07/23/19 05:19 Troponin I 4.212 ng/mL (< 0.028) H* 07/23/19 05:19 - Telemetry Sinus rhythms and dysrhythmias: sinus rhythm - Assessment/Plan Assessment/Plan: 1. NSTEMI 2. Hypertensive emergency 3. Acute on chronic diastolic CHF 4. CKD stage 4. PLAN: - Her creatinine remains at 2.4 but her Hgb has dropped to the mid 7's. She continues to want to hold on any invasive procedures given her kidney function and now her anemia. - Medical management for now,. Stop heparin drip tomorrow. - No evidence of overt bleeding. - May discharge tomorrow afternoon or day after.
[2019-07-25] MEDS: Rosuvastatin 20 MG TAB PO SCH (20:33)
[2019-07-26] MEDS: Acetaminophen 325 MG TAB PO PRN ×2 (04:51→18:03)
[2019-07-26 05:47] LABS: #Basophils 0.1 thou/uL (0.0-0.2); #Eosinphils 0.5 thou/uL (0.0-0.7); #Monocytes 0.7 thou/uL (0.11-0.59); #Neutrophils 6.2 thou/uL (1.40-6.50); %Basophils 0.8 % (0.0-1.0); %Eosinophils 5.2 % (0.0-10.0); %Lymphocytes 28.8 % (21.0-51.0); %Monocytes 6.2 % (0.0-10.0); Hemoglobin 7.9 g/dL (12.0-16.0); Mean Corpuscular HGB CONC 31.6 g/dL (32.0-36.0); Mean Corpuscular Hemoglobin 25.4 pg (27.0-31.0); Mean Corpuscular Volume 80.3 fL (78.0-98.0); Mean Platelet Volume 10.5 fL (7.4-10.4); Platelet Count 237 thou/uL (130-400); White Blood Cell (WBC) Count 10.4 thou/uL (4.8-10.8)
[2019-07-26 06:10] LABS: Anion Gap 11 mmol/L (10-20); BUN (Urea Nitrogen) 38 mg/dL (9.8-20.1); Calc. Creatinine Clearance 41 mL/min (70-130); Calcium 7.3 mg/dL (7.8-10.44); Carbon Dioxide 30 mmol/L (22-29); Chloride 102 mmol/L (98-107); Estimated GFR-MDRD 28; Glucose 193 mg/dL (70-105); Potassium 3.5 mmol/L (3.5-5.1); Sodium 139 mmol/L (136-145)
[2019-07-26] MEDS: Aspirin 81 mg Enteric Coated Tablet PO SCH (09:29)
[2019-07-26] MEDS: hydrALAZINE 25 MG TAB PO SCH ×3 (09:30→20:20)
[2019-07-26] MEDS: Carvedilol 6.25 MG TAB PO SCH ×2 (09:30→18:03)
[2019-07-26] MEDS: Potassium Chloride 10 MEQ TAB PO SCH ×2 (09:30→18:03)
[2019-07-26] MEDS: HumuLIN 70/30 (300 UNITS/3 ML VIAL) SC SCH ×2 (09:31→20:22)
[2019-07-26] MEDS: Torsemide 20 MG TAB PO SCH (09:32)
[2019-07-26] MEDS: Insulin Glargine 20 UNITS in Pre-Filled Syringe 1 EACH SC SCH (09:32)
[2019-07-26] MEDS: Insulin Regular 300 UNITS/3 ML VIAL SC PRN (12:46)
[2019-07-26] MEDS ORDERED: Potassium Chloride 20 MEQ TAB PO SCH (18:00)
--- NOTE | 2019-07-26 19:48 | PDOC.CPN ---
- Subjective Date: 07/26/19 Time: 19:46 Interval history: Doing better. No chest pain. No bleeding. - Review of Systems General: denies: fever/chills, weight/appetite/sleep changes, night sweats, fatigue Respiratory: denies: cough, congestion, shortness of breath, exercise intolerance Cardiovascular: denies: chest pain, palpitation, edema, paroxysmal nocturnal dyspnea, orthopnea Gastrointestinal: denies: nausea, vomiting, diarrhea, constipation, abd pain, GI bleeding Musculoskeletal: denies: pain, tenderness, stiffness, swelling, arthritis/ arthralgias Neurological: denies: numbness, syncope, seizure, weakness - Objective Allergies/Adverse Reactions: Allergies Allergy/AdvReac Type Severity Reaction Status Date / Time Penicillins Allergy Rash Verified 01/04/19 06:27 Sulfa (Sulfonamide Allergy Rash Verified 01/04/19 06:27 Antibiotics) TIDE SOAP Allergy Rash Uncoded 02/03/18 15:35 Visit Medications: Current Medications Acetaminophen (Tylenol) 650 mg PO Q6H PRN PRN Reason: Mild Pain (1-3) Last Admin: 07/26/19 18:03 Dose: 650 mg Aspirin (Ecotrin) 81 mg PO DAILY [facility] Last Admin: 07/26/19 09:29 Dose: 81 mg Carvedilol (Coreg) 12.5 mg PO BID-[facility] Last Admin: 07/26/19 18:03 Dose: 12.5 mg Dextrose/Water (Dextrose 50%) 25 gm IVP PRN PRN PRN Reason: HYPOGLYCEMIA PROTOCOL Glucagon (Glucagon) 1 mg IM PRN PRN PRN Reason: HYPOGLYCEMIA PROTOCOL Heparin Sodium (Porcine) (Heparin 1,000 Units/Ml (10 Ml)) 0 units SLOW IVP ASDIR [facility]; Protocol Stop: 07/26/19 22:40 Last Admin: 07/25/19 06:01 Dose: 2,769 unit Hydralazine HCl (Apresoline) 25 mg PO TID [facility] Last Admin: 07/26/19 15:48 Dose: 25 mg Dextrose/Water (D5w) 1,000 mls @ 0 mls/hr IV INF PRN PRN Reason: HYPOGLYCEMIA PROTOCOL Insulin Glargine 20 units/ (Miscellaneous Medication) 0.2 mls @ 0 mls/hr SC QAM [facility] Last Admin: 07/26/19 09:32 Dose: 0.2 mls Heparin Sodium/Dextrose (Heparin 25,000 Units/D5w 500 Ml) 500 mls @ 0 mls/hr IVPB INF [facility]; Protocol Stop: 07/26/19 22:40 Last Admin: 07/24/19 22:37 Dose: 500 mls Insulin Human Isoph/Insulin Regular (Humulin 70/30) 20 units SC HS [facility] Last Admin: 07/25/19 20:35 Dose: 20 unit Insulin Human Isoph/Insulin Regular (Humulin 70/30) 20 units SC QAM [facility] Insulin Human Regular (Humulin R) 0 units SC .BEDTIME SLIDING SC PRN; Protocol PRN Reason: BEDTIME SLIDING SCALE Last Admin: 07/23/19 20:44 Dose: 5 unit Insulin Human Regular (Humulin R) 0 units SC .MILD SLIDING PRN; Protocol PRN Reason: MILD SLIDING SCALE Last Admin: 07/26/19 12:46 Dose: 4 unit Potassium Chloride (Klor-Con 10) 10 meq PO BID-[facility] Last Admin: 07/26/19 18:03 Dose: 10 meq Potassium Chloride (K-Dur) 20 meq PO NOW [facility] Stop: 07/26/19 20:00 Last Admin: 07/26/19 18:03 Dose: 20 meq Rosuvastatin Calcium (Crestor) 20 mg PO [facility] Last Admin: 07/25/19 20:33 Dose: 20 mg Torsemide (Demadex) 40 mg PO QAM [facility] Last Admin: 07/26/19 09:32 Dose: 40 mg Vital Signs & Weight: Vital Signs Temp Pulse Pulse Pulse Resp BP BP 07/26/19 18:03 122/80 07/26/19 15:48 87 07/26/19 15:27 98.4 F 85 16 07/26/19 11:12 98.5 F 87 14 07/26/19 10:44 86 80 125/73 07/26/19 09:30 81 122/80 BP BP BP Pulse Ox Pulse Ox Pulse Ox 07/26/19 18:03 07/26/19 15:48 07/26/19 15:27 189/77 H 96 07/26/19 11:12 125/73 95 07/26/19 10:44 139/63 95 98 07/26/19 09:30 Weight 203 lb 12.8 oz - Physical Exam General: alert & oriented x3 HEENT: mucus membranes moist Neck: supple neck Cardiac: regular rate and rhythm Lungs: clear to auscultation Neuro: grossly intact Abdomen: active bowel sounds Extremities: no edema Skin: clear Musculoskeletal: no pain - Labs Result Diagrams: 07/26/19 05:09 07/26/19 05:08 Troponin/CKMB CK-MB (CK-2) 8.4 ng/mL (0-6.6) H* 07/23/19 05:19 Troponin I 4.212 ng/mL (< 0.028) H* 07/23/19 05:19 - Telemetry Sinus rhythms and dysrhythmias: sinus rhythm - Assessment/Plan Assessment/Plan: 1. NSTEMI 2. Hypertensive emergency 3. Acute on chronic diastolic CHF 4. CKD stage 4. 5. Anemia PLAN: - Stop heparin drip this evening. - medical therapy for NSTEMI per pts wishes. - D/C in the morning. - Follow up in 1 month with re check BMP and if creatinine and Hgb better will consider [facility] for further risk stratification. - Will sign off. Please call with any questions.
[2019-07-26] MEDS: Rosuvastatin 20 MG TAB PO SCH (20:20)
[2019-07-26 20:52] LABS: Hemoglobin 7.8 g/dL (12.0-16.0); Platelet Count 198 thou/uL (130-400)
[2019-07-27 06:08] LABS: Anion Gap 14 mmol/L (10-20); BUN (Urea Nitrogen) 37 mg/dL (9.8-20.1); Calc. Creatinine Clearance 41 mL/min (70-130); Calcium 7.6 mg/dL (7.8-10.44); Carbon Dioxide 25 mmol/L (22-29); Chloride 104 mmol/L (98-107); Estimated GFR-MDRD 29; Glucose 150 mg/dL (70-105); Potassium 4.3 mmol/L (3.5-5.1); Sodium 139 mmol/L (136-145)
[2019-07-27] MEDS: Acetaminophen 325 MG TAB PO PRN (09:31)
[2019-07-27] MEDS: hydrALAZINE 25 MG TAB PO SCH ×3 (09:31→21:12)
[2019-07-27] MEDS: Aspirin 81 mg Enteric Coated Tablet PO SCH (09:32)
[2019-07-27] MEDS: Carvedilol 6.25 MG TAB PO SCH ×2 (09:32→18:24)
[2019-07-27] MEDS: Potassium Chloride 10 MEQ TAB PO SCH ×2 (09:32→18:24)
[2019-07-27] MEDS: HumuLIN 70/30 (300 UNITS/3 ML VIAL) SC SCH ×3 (09:33→21:11)
[2019-07-27] MEDS: Insulin Glargine 20 UNITS in Pre-Filled Syringe 1 EACH SC SCH ×2 (09:36→09:45)
[2019-07-27] MEDS: Torsemide 20 MG TAB PO SCH (09:38)
[2019-07-27] MEDS: Insulin Regular 300 UNITS/3 ML VIAL SC PRN (13:15)
[2019-07-27] MEDS: Rosuvastatin 20 MG TAB PO SCH (21:12)
[2019-07-28] MEDS: Acetaminophen 325 MG TAB PO PRN (00:26)
[2019-07-28 06:31] LABS: Anion Gap 13 mmol/L (10-20); BUN (Urea Nitrogen) 37 mg/dL (9.8-20.1); Calc. Creatinine Clearance 37 mL/min (70-130); Calcium 7.2 mg/dL (7.8-10.44); Carbon Dioxide 26 mmol/L (22-29); Chloride 104 mmol/L (98-107); Estimated GFR-MDRD 27; Glucose 216 mg/dL (70-105); Potassium 4.1 mmol/L (3.5-5.1); Sodium 139 mmol/L (136-145)
[2019-07-28] MEDS: Carvedilol 6.25 MG TAB PO SCH ×2 (09:06→16:24)
[2019-07-28] MEDS: Potassium Chloride 10 MEQ TAB PO SCH ×2 (09:06→16:25)
[2019-07-28] MEDS: Aspirin 81 mg Enteric Coated Tablet PO SCH (09:06)
[2019-07-28] MEDS: Torsemide 20 MG TAB PO SCH (09:06)
[2019-07-28] MEDS: Insulin Regular 300 UNITS/3 ML VIAL SC PRN ×2 (09:07→11:16)
[2019-07-28] MEDS: hydrALAZINE 25 MG TAB PO SCH ×3 (09:07→20:45)
[2019-07-28] MEDS: HumuLIN 70/30 (300 UNITS/3 ML VIAL) SC SCH ×2 (09:08→20:54)
[2019-07-28] MEDS: Rosuvastatin 20 MG TAB PO SCH (20:45)
[2019-07-28 21:13] LABS: Hemoglobin 7.7 g/dL (12.0-16.0); Platelet Count 211 thou/uL (130-400)
[2019-07-29 04:51] LABS: Hemoglobin 7.9 g/dL (12.0-16.0)
[2019-07-29 05:11] LABS: Anion Gap 13 mmol/L (10-20); BUN (Urea Nitrogen) 39 mg/dL (9.8-20.1); Calc. Creatinine Clearance 36 mL/min (70-130); Carbon Dioxide 24 mmol/L (22-29); Chloride 105 mmol/L (98-107); Estimated GFR-MDRD 26; Glucose 160 mg/dL (70-105); Potassium 4.6 mmol/L (3.5-5.1); Sodium 137 mmol/L (136-145)
[2019-07-29] MEDS: Carvedilol 6.25 MG TAB PO SCH ×2 (09:35→17:19)
[2019-07-29] MEDS: hydrALAZINE 25 MG TAB PO SCH ×3 (09:35→21:36)
[2019-07-29] MEDS: Torsemide 20 MG TAB PO SCH (09:35)
[2019-07-29] MEDS: Potassium Chloride 10 MEQ TAB PO SCH ×2 (09:36→17:17)
[2019-07-29] MEDS: Aspirin 81 mg Enteric Coated Tablet PO SCH (09:36)
[2019-07-29] MEDS: HumuLIN 70/30 (300 UNITS/3 ML VIAL) SC SCH ×2 (09:37→21:35)
[2019-07-29] MEDS: Rosuvastatin 20 MG TAB PO SCH (21:35)
[2019-07-30] MEDS: Acetaminophen 325 MG TAB PO PRN (00:29)
[2019-07-30 05:02] LABS: Anion Gap 14 mmol/L (10-20); BUN (Urea Nitrogen) 44 mg/dL (9.8-20.1); Calc. Creatinine Clearance 37 mL/min (70-130); Calcium 6.7 mg/dL (7.8-10.44); Carbon Dioxide 26 mmol/L (22-29); Chloride 102 mmol/L (98-107); Estimated GFR-MDRD 26; Glucose 153 mg/dL (70-105); Potassium 4.2 mmol/L (3.5-5.1); Sodium 138 mmol/L (136-145)
[2019-07-30 05:04] VITALS: BMI 52.6
[2019-07-30] MEDS: Potassium Chloride 10 MEQ TAB PO SCH (08:52)
[2019-07-30] MEDS: Torsemide 20 MG TAB PO SCH (08:52)
[2019-07-30] MEDS: hydrALAZINE 25 MG TAB PO SCH (08:52)
[2019-07-30] MEDS: Aspirin 81 mg Enteric Coated Tablet PO SCH (08:52)
[2019-07-30] MEDS: Carvedilol 6.25 MG TAB PO SCH (08:53)
[2019-07-30] MEDS: HumuLIN 70/30 (300 UNITS/3 ML VIAL) SC SCH (08:58)
[2019-07-30 11:49] VITALS: BP 127/50; TEMP 98.6
[2019-07-30] MEDS: Insulin Regular 300 UNITS/3 ML VIAL SC PRN (12:03)
== END 2019-07-30 13:49 | disposition home or self-care (01) | DRG 280 ==
LOC: ERS 12:24 → CCU 14:37 → 2NO 07-23 22:56
PROVIDERS: ADMIT Internal Medicine; ATTEND Internal Medicine
PROC: 5A09357 Assistance with Respiratory Ventilation, Less than 24 Consecutive Hours, Continuous Positive Airway Pressure (ICD-10-PCS; principal; 2019-07-22)
DX: I13.0 Hypertensive heart and chronic kidney disease with heart failure and stage 1 through stage 4 chronic kidney disease, or unspecified chronic kidney disease (principal); I21.4 Non-ST elevation (NSTEMI) myocardial infarction; I50.33 Acute on chronic diastolic (congestive) heart failure; J96.01 Acute respiratory failure with hypoxia; I16.1 Hypertensive emergency; N18.4 Chronic kidney disease, stage 4 (severe); E78.5 Hyperlipidemia, unspecified; E83.51 Hypocalcemia; G47.33 Obstructive sleep apnea (adult) (pediatric); D63.1 Anemia in chronic kidney disease; Z86.73 Personal history of transient ischemic attack (TIA), and cerebral infarction without residual deficits; Z88.0 Allergy status to penicillin; Z88.2 Allergy status to sulfonamides; Z79.899 Other long term (current) drug therapy; Z79.82 Long term (current) use of aspirin; Z79.4 Long term (current) use of insulin; Z91.048 Other nonmedicinal substance allergy status
CPT/HCPCS: 36415; 36416; 51702; 71045; 80048; 80053; 80306; 82553; 82805; 83605; 83735; 83880; 84100; 84484; 85014; 85018; 85025; 85049; 85730; 93005; 93010; 93306; 93798; 94002; 94660; 94760; 96365; 96366; 96375; 99292; J1644; J1650; J1815; J1940; J2930; J3490

== ENCOUNTER 2019-10-21 11:25 | Outpatient (CLI) | payer OTHER ==
--- NOTE | 2019-10-21 11:42 | RAD ---
XR Chest Pa Lat @ [facility] HISTORY: Dyspnea COMPARISON: 07/22/2019 exam. FINDINGS: Heart size is enlarged. Mediastinal structures appear unremarkable. The lungs are clear of infiltrates. There are no signs of failure. There are mild arthritic changes of the spine. IMPRESSION: Mild cardiomegaly.
== END 2019-10-21 11:26 | disposition home or self-care (01) ==
LOC: RAD 11:25
PROVIDERS: ATTEND Internal Medicine
DX: R06.00 Dyspnea, unspecified (principal); I51.7 Cardiomegaly
CPT/HCPCS: 71046

== ENCOUNTER 2020-01-12 15:55 | Emergency (ER) | payer OTHER ==
[2020-01-12] MEDS ORDERED: Oxymetazoline HCl 0.05% (30 ML BOT) ONE ×2 (16:19→18:20)
[2020-01-12 17:49] LABS: PTT 50.7 SEC (22.9-36.1); Prothrombin Time 13.6 SEC (12.0-14.7)
[2020-01-12 18:08] LABS: #Basophils 0.1 thou/uL (0.0-0.2); #Eosinphils 0.3 thou/uL (0.0-0.7); #Lymphocytes 2.3 thou/uL (1.20-3.40); #Monocytes 0.8 thou/uL (0.11-0.59); #Neutrophils 6.1 thou/uL (1.40-6.50); %Basophils 0.5 % (0.0-1.0); %Eosinophils 2.7 % (0.0-10.0); %Lymphocytes 24.3 % (21.0-51.0); %Monocytes 8.8 % (0.0-10.0); %Neutrophils 63.7 % (42.0-75.0); Hemoglobin 8.8 g/dL (12.0-16.0); Mean Corpuscular HGB CONC 32.4 g/dL (32.0-36.0); Mean Corpuscular Hemoglobin 26.4 pg (27.0-31.0); Mean Corpuscular Volume 81.3 fL (78.0-98.0); Mean Platelet Volume 10.3 fL (7.4-10.4); Platelet Count 181 thou/uL (130-400); RBC Distribution Width 14.7 % (11.5-14.5); Red Blood Cell (RBC) Count 3.33 mill/uL (4.20-5.40); White Blood Cell (WBC) Count 9.6 thou/uL (4.8-10.8)
== END 2020-01-12 19:08 ==
LOC: ERS 15:55
DX: R04.0 Epistaxis (principal); I11.0 Hypertensive heart disease with heart failure; I50.9 Heart failure, unspecified; E11.9 Type 2 diabetes mellitus without complications; E78.5 Hyperlipidemia, unspecified; Z86.73 Personal history of transient ischemic attack (TIA), and cerebral infarction without residual deficits
CPT/HCPCS: 36415; 85025; 85610; 85730; 99283

== ENCOUNTER 2020-06-07 02:45 | Emergency (ER) | payer OTHER | END 2020-06-07 05:35 | disposition home or self-care (01) | LOC: ERS 02:45 | DX: E11.649 Type 2 diabetes mellitus with hypoglycemia without coma (principal); T38.3X5A Adverse effect of insulin and oral hypoglycemic [antidiabetic] drugs, initial encounter; I11.0 Hypertensive heart disease with heart failure; I50.9 Heart failure, unspecified; E78.5 Hyperlipidemia, unspecified; Z86.73 Personal history of transient ischemic attack (TIA), and cerebral infarction without residual deficits; Z79.4 Long term (current) use of insulin | CPT/HCPCS: 36416; 99285 ==

== ENCOUNTER 2020-08-21 11:52 | Inpatient (IN) | payer OTHER ==
[2020-08-21] MEDS ORDERED: Furosemide 20 MG/2 ML VIAL ONE (12:25)
[2020-08-21] MEDS ORDERED: Furosemide 40 MG/4 ML VIAL ONE ×2 (12:26→16:33)
[2020-08-21 12:44] LABS: Bacteria/HPF None Seen HPF (None Seen); Bilirubin Negative (Negative); Blood, Urine Negative (Negative); Clarity Clear (Clear); Glucose, Urine (Dipstick) 70 mg/dL (Negative); Ketone, Urine Negative (Negative); Leukocyte Negative Leu/uL (Negative); Nitrite Negative (Negative); Protein, Urine (Dipstick) 30 mg/dL (Neg-Trace); RBC/HPF 0-3 HPF (0-3); Specific Gravity, Urine 1.011 (1.002-1.036); Squamous Epithelial 0-3 HPF (0-3); Urobilinogen Normal mg/dL (Less than 2); WBC/HPF 0-3 HPF (0-3)
[2020-08-21 12:50] LABS: #Eosinphils 0.3 thou/uL (0.0-0.7); #Lymphocytes 1.9 thou/uL (1.20-3.40); #Monocytes 0.7 thou/uL (0.11-0.59); #Neutrophils 6.1 thou/uL (1.40-6.50); %Basophils 0.5 % (0.0-1.0); %Eosinophils 3.3 % (0.0-10.0); %Lymphocytes 20.6 % (21.0-51.0); %Monocytes 7.9 % (0.0-10.0); %Neutrophils 67.7 % (42.0-75.0); Hemoglobin 8.9 g/dL (12.0-16.0); Mean Corpuscular HGB CONC 31.9 g/dL (32.0-36.0); Mean Corpuscular Hemoglobin 27.2 pg (27.0-31.0); Mean Corpuscular Volume 85.4 fL (78.0-98.0); Mean Platelet Volume 10.9 fL (7.4-10.4); Platelet Count 166 thou/uL (130-400); RBC Distribution Width 15.6 % (11.5-14.5); Red Blood Cell (RBC) Count 3.25 mill/uL (4.20-5.40); White Blood Cell (WBC) Count 9.1 thou/uL (4.8-10.8)
--- NOTE | 2020-08-21 13:09 | RAD ---
RADIOGRAPH CHEST 1 VIEW: DATE: 08/21/2020 TIME: 12:47 PM HISTORY: 60-year-old female with dyspnea COMPARISON: 10/21/2019 FINDINGS: Increased transverse diameter of cardiac shadow. Some of this is due to magnification due to body hab itus. Uncertain whether or not there is also true cardiomegaly. No pneumothorax. Diffuse bilateral interstitial pulmonary densities in mid and lower lung zones. These are confluent into airspace densities at the bases of bilateral lower lobes with mild air bronc hogram. These pulmonary changes are new since the prior study. IMPRESSION: Bilateral interstitial and alveolar pulmonary densities, mostly interstitial. Pulmonary edema versus COVID-19 pneumonia. Recommend follow-up.
[2020-08-21 13:13] LABS: ALT (SGPT) 20 U/L (8-55); AST (SGOT) 36 U/L (5-34); Albumin 3.5 g/dL (3.4-4.8); Alkaline Phosphatase 75 U/L (40-110); Anion Gap 15 mmol/L (10-20); BUN (Urea Nitrogen) 46 mg/dL (9.8-20.1); Bilirubin, Total 0.4 mg/dL (0.2-1.2); Calc. Creatinine Clearance 0 mL/min (70-130); Calcium 7.2 mg/dL (7.8-10.44); Carbon Dioxide 21 mmol/L (23-31); Chloride 108 mmol/L (98-107); Globulin 4.2 g/dL (2.4-3.5); Glucose 126 mg/dL (80-115); Protein, Total 7.7 g/dL (6.0-8.3); Sodium 140 mmol/L (136-145)
[2020-08-21 13:34] LABS: CKMB 3.5 ng/mL (0-6.6)
[2020-08-21] MEDS ORDERED: Furosemide 40 MG/4 ML VIAL SLOW IVP SCH (14:15)
--- NOTE | 2020-08-21 14:31 | PDOC.HHP ---
Hospitalist HPI - History of Present Illness Shortness of breath History of Present Illness: Ms. Harrison is a 60-year-old female with a past medical history of diastolic heart failure, type 2 diabetes mellitus, CVA, NSTEMI, hypertension, hyperlipidemia, chronic kidney disease who presents to the emergency room for shortness of breath. Patient was visiting her primary care provider for the above complaint however she developed worsening shortness of breath and her daughter called EMS. Patient tachypneic with 3 word dyspnea. Patient reports her breathing has gotten significantly worse for the past few days and she feels as though there is excess fluid in her lungs. She is not sure if she has been taking all of her medications. At home she takes 40 mg of torsemide twice daily. She denies chest pain, palpitations. Denies lightheadedness, denies numbness weakness or paresthesias. In emergency room initial vital signs 188/73, 102, 22, 98.5, 95% on room air. Initial troponin 0 0.030. BNP 189.9. BUN/CR 46/2.58. H/H 8.9/27.7. WBC 9.1. UA negative. Chest x-ray with bilateral infiltrates suspicious for Covid versus pulmonary edema. Patient received 40 mg of IV Lasix in the emergency room. Hospitalist ROS - Review of Systems Constitutional: denies: fever, chills, sweats, weakness, malaise, other Eyes: denies: pain, vision change, conjunctivae inflammation, eyelid inflammation, redness, other ENT: denies: ear pain, ear discharge, nose pain, nose discharge, nose c ongestion, mouth pain, mouth swelling, throat pain, throat swelling, other Respiratory: reports: shortness of breath, SOB with excertion. denies: cough, dry, hemoptysis, pleuritic pain, sputum, wheezing, other Cardiovascular: denies: chest pain, palpitations, orthopnea, paroxysmal noc. dyspnea, edema, light headedness, other Gastrointestinal: denies: nausea, vomiting, abdominal pain, diarrhea, constipation, melena, hematochezia, other Genitourinary: denies: dysuria, frequency, incontinence, hematuria, retention, other Musculoskeletal: denies: neck pain, shoulder pain, arm pain, back pain, hand pain, leg pain, foot pain, other Skin: denies: rash, lesions, enrique, bruising, other Neurological: denies: weakness, numbness, incoordination, change in speech, confusion, seizures, other - Medication Medications: Home medications include Aspirin full-strength Rosuvastatin Insulin Coreg Torsemide 40 mg twice daily Hydralazine Allergies to penicillin and sulfa antibiotics Hospitalist History - Past Medical History Other Medical History: Past medical history includes Diastolic heart failure with EF of $0.50 with diastolic dysfunction Type 2 diabetes mellitus CVA NSTEMI Hypertension Hyperlipidemia Chronic kidney disease with baseline creatinine about 2.2 - Past Surgical History Other Surgical History: History of hernia repair and . - Family History Other Family History: No pertinent family history - Social History Smoking Status: Never smoker Alcohol: reports: None Drugs: reports: none Living Situation: With Family Activity level: independent ambulation - Exam General Appearance: NAD, awake alert Eye: PERRL, anicteric sclera ENT: normocephalic atraumatic, no oropharyngeal lesions, moist mucosa Neck: supple, symmetric, no JVD, no thyromegaly, no lymphadenopathy, no carotid bruit Heart: RRR, no murmur, no gallops, no rubs, normal peripheral pulses Respiratory - other findings: Crackles at bilateral bases Gastrointestinal: soft, non-tender, non-distended, normal bowel sounds, no palpable masses, no hepatomegaly, no splenomegaly, no bruit Extremities: no cyanosis, no clubbing, 1+ LE edema Skin: normal turgor, no lesions, no rashes Neurological: cranial nerve grossly intact, normal sensation to touch, no weakness, no focal deficits, no new deficit Musculoskeletal: normal tone, normal strength, no muscle wasting Psychiatric: normal affect, normal behavior, A&O x 3 Hospitalist Results - Labs Result Diagrams: 08/21/20 12:26 08/21/20 12: Lab results: WBC 9.1 thou/uL (4.8-10.8) 08/21/20 12: Hgb 8.9 g/dL (12.0-16.0) L 08/21/20 12:26 Hct 27.7 % (36.0-47.0) L 08/21/20 12: MCV 85.4 fL (78.0-98.0) 08/21/20 12:26 Plt Count 166 thou/uL (130-400) 08/21/20 12:26 Neutrophils % 67.7 % (42.0-75.0) 08/21/20 12:26 Sodium 140 mmol/L (136-145) 08/21/20 12:26 Potassium 4.0 mmol/L (3.5-5.1) 08/21/20 12:26 Chloride 108 mmol/L (98-107) H 08/21/20 12:26 Carbon Dioxide 21 mmol/L (23-31) L 08/21/20 12:26 BUN 46 mg/dL (9.8-20.1) H 08/21/20 12:26 Creatinine 2.58 mg/dL (0.6-1.1) H 08/21/20 12:26 Glucose 126 mg/dL (80-115) H 08/21/20 12:26 Calcium 7.2 mg/dL (7.8-10.44) L 08/21/20 12:26 Total Bilirubin 0.4 mg/dL (0.2-1.2) 08/21/20 12:26 AST 36 U/L (5-34) H 08/21/20 12:26 ALT 20 U/L (8-55) 08/21/20 12:26 Alkaline Phosphatase 75 U/L (40-110) 08/21/20 12:26 CK-MB (CK-2) 3.5 ng/mL (0-6.6) 08/21/20 12:26 Troponin I 0.030 ng/mL (< 0.028) H 08/21/20 12:26 B-Natriuretic Peptide 199.4 pg/mL (0-100) H 08/21/20 12:26 Serum Total Protein 7.7 g/dL (6.0-8.3) 08/21/20 12:26 Albumin 3.5 g/dL (3.4-4.8) 08/21/20 12:26 Urine Ketones Negative mg/dL (Negative) 08/21/20 12:22 Urine Blood Negative (Negative) 08/21/20 12:22 Urine Nitrite Negative (Negative) 08/21/20 12:22 Ur Leukocyte Esterase Negative Wayne/uL (Negative) 08/21/20 12:22 Urine RBC 0-3 HPF (0-3) 08/21/20 12:22 Urine WBC 0-3 HPF (0-3) 08/21/20 12:22 Ur Squamous Epith Cells 0-3 HPF (0-3) 08/21/20 12:22 Urine Bacteria None Seen HPF (None Seen) 08/21/20 12:22 Hospitalist H&P A/P - Plan Plan: 60-year-old female past medical history of diastolic heart failure, type 2 diabetes mellitus, CVA, hypertension, hyperlipidemia, CKD, NSTEMI who presents with worsening shortness of breath over the past few days likely an acute CHF exacerbation. Acute CHF exacerbation History of CHF with recent echo in July 2019 with EF of 55 to 60% with diastolic dysfunction. On home torsemide 40 mg twice daily. Patient reports worsening shortness of breath. Unable to confirm patient has been taking her home medications as appropriate. In the ED patient initially tachypneic but maintaining saturation on room air. BMP mildly elevated at 199.9. Mild JVD. Positive hepatojugular reflex. Troponin 0 0.030. BUN/CR 46/2.58. WBC 9.1. Chest x-ray showed pulmonary congestion versus Covid pneumonia. Patient denies any cough or upper respiratory symptoms. Denies any known Covid exposures. Patient received 40 mg IV Lasix in the emergency room. Patient in no acute respiratory distress with no accessory muscle use and no increased work of breathing. We will continue to diurese patient and continue to monitor. Plan IV Lasix 80 mg twice daily Continue home Coreg 25 mg Covid pending Echocardiogram I/os, daily weights Elevated troponin Troponin indeterminate at 0.030. Likely secondary to CHF exacerbation. Patient without chest pain and EKG without ischemic changes. We will continue to trend troponins and monitor. Plan Telemetry monitoring Trend troponins Continue to monitor for symptoms Chronic kidney disease Hx of CKD with baseline Cr of 2.2. BUN/Cr on presentation 46/2.58. Likely component of cardiorenal. Will continue to diurese 2/2 acute CHF and monitor kidney function. Plan -Trend kidney function -Avoid nephrotoxic agents where possible -Renal dosing as appropriate Hypertension History of hypertension on home Coreg 25 mg and hydralazine 25 mg 3 times daily. We will continue once dosages are confirmed. Hyperlipidemia We will continue home statin. Type 2 diabetes mellitus History of type 2 diabetes on regular insulin. Will place on half dose regular insulin and moderate insulin sliding scale. Plan Half dose home insulin Insulin sliding scale ACHS glucose checks DVT prophylaxissubcutaneous heparin Full codeMDM is patient's daughter Case discussed with attending physician, Dr. Coburn.
[2020-08-21] MEDS ORDERED: Acetaminophen 650 MG Suppository PR PRN (15:10)
[2020-08-21] MEDS ORDERED: Ondansetron ODT 4 MG TAB PO PRN (15:10)
[2020-08-21] MEDS ORDERED: hydrALAZINE 20 MG/ML VIAL ONE (16:33)
[2020-08-21 16:51] LABS: Troponin I 0.025 ng/mL (< 0.028)
[2020-08-21] MEDS: Acetaminophen 325 MG TAB PO PRN ×2 (17:20→23:07)
[2020-08-21 19:53] LABS: Troponin I 0.032 ng/mL (< 0.028)
[2020-08-21] MEDS: Heparin 5,000 UNITS/ML VIAL SC SCH (20:51)
[2020-08-21] MEDS ORDERED: Rosuvastatin 20 MG TAB PO SCH (21:00)
[2020-08-21] MEDS ORDERED: traMADol HCl 50 MG TAB PO SCH (23:15)
[2020-08-22 03:04] LABS: SARS-CoV-2 MS2 Positive; SARS-CoV-2 N Gene Negative; SARS-CoV-2 S Gene Negative; SARS-CoV-2 by NAA Not Detected (NotDetected); SARS-CoV-2 orf1ab Negative
[2020-08-22 04:44] LABS: #Basophils 0.1 thou/uL (0.0-0.2); #Eosinphils 0.3 thou/uL (0.0-0.7); #Lymphocytes 2.5 thou/uL (1.20-3.40); #Monocytes 0.7 thou/uL (0.11-0.59); #Neutrophils 4.6 thou/uL (1.40-6.50); %Basophils 0.7 % (0.0-1.0); %Eosinophils 3.2 % (0.0-10.0); %Lymphocytes 30.9 % (21.0-51.0); %Monocytes 8.1 % (0.0-10.0); %Neutrophils 57.1 % (42.0-75.0); Hemoglobin 8.7 g/dL (12.0-16.0); Mean Corpuscular HGB CONC 31.4 g/dL (32.0-36.0); Mean Corpuscular Hemoglobin 27.4 pg (27.0-31.0); Mean Corpuscular Volume 87.2 fL (78.0-98.0); Mean Platelet Volume 10.5 fL (7.4-10.4); Platelet Count 179 thou/uL (130-400); RBC Distribution Width 15.9 % (11.5-14.5); Red Blood Cell (RBC) Count 3.18 mill/uL (4.20-5.40); White Blood Cell (WBC) Count 8.1 thou/uL (4.8-10.8)
[2020-08-22 05:00] LABS: Anion Gap 19 mmol/L (10-20); BUN (Urea Nitrogen) 44 mg/dL (9.8-20.1); Calc. Creatinine Clearance 29 mL/min (70-130); Calcium 7.3 mg/dL (7.8-10.44); Carbon Dioxide 21 mmol/L (23-31); Chloride 105 mmol/L (98-107); Glucose 101 mg/dL (80-115); Potassium 5.8 mmol/L (3.5-5.1); Sodium 139 mmol/L (136-145)
[2020-08-22] MEDS: Furosemide 100 MG/10 ML VIAL SLOW IVP SCH ×2 (05:05→18:40)
[2020-08-22] MEDS ORDERED: traMADol HCl 50 MG TAB PO PRN ×2 (08:09→12:29)
[2020-08-22] MEDS ORDERED: FLU VACC QS2020-21(6MOS UP)/PF 60 MCG/0.5 ML SYRINGE IM ONE (09:00)
[2020-08-22] MEDS: Aspirin 325 MG TAB PO SCH (09:13)
[2020-08-22] MEDS: Heparin 5,000 UNITS/ML VIAL SC SCH ×3 (09:13→21:48)
--- NOTE | 2020-08-22 17:25 | PDOC.HOSPP ---
- Subjective Subjective: Seen examined at bedside. Patient reported her breathing is getting better. Advised her lower extremity swelling. Her echo is not done yet. - Objective Vital Signs & Weight: Vital Signs (12 hours) Temp Pulse Resp BP Pulse Ox 08/22/20 12:25 98.4 F 88 16 141/64 H 98 08/22/20 07:35 98.4 F 86 16 120/57 L 98 Weight Weight 188 lb I&O: 08/21/20 08/22/20 08/23/20 06:59 06:59 06:59 Intake Total 138 Output Total 900 Balance -762 Result Diagrams: 08/22/20 03:56 08/22/20 03:56 Additional Labs: Accuchecks 08/22/20 08/22/20 08/21/20 10:51 05:45 20:32 POC Glucose 145 H 118 H 224 H 08/21/20 17:10 POC Glucose 71 Radiology Reviewed by me: Yes EKG Reviewed by me: Yes Hospitalist ROS - Medication Medications: Active Medications Generic Name Dose Route Start Last Admin Trade Name Freq PRN Reason Stop Dose Admin Acetaminophen 650 mg 08/21/20 14:26 08/21/20 23:07 Acetaminophen 325 Mg Tab PO 650 mg Q6H PRN Administration Pain Aspirin 325 mg 08/22/20 09:00 08/22/20 09:13 Aspirin 325 Mg Tab PO 325 mg DAILY GLENN Administration Furosemide 80 mg 08/22/20 06:00 08/22/20 05:05 Furosemide 100 Mg/10 Ml Vial SLOW IVP 80 mg 0600,1400 GLENN Administration Heparin Sodium (Porcine) 5,000 units 08/21/20 21:00 08/22/20 09:13 Heparin 5,000 Units/Ml Vial SC 5,000 units TID GLENN Administration - Exam General Appearance: NAD Eye: PERRL ENT: normocephalic atraumatic Neck: supple, JVD Heart: RRR Respiratory: rhonchi Gastrointestinal: soft Extremities: 1+ LE edema Musculoskeletal: normal tone Psychiatric: normal affect, normal behavior, A&O x 3 Hosp A/P - Plan 60-year-old female past medical history of diastolic heart failure, type 2 diabetes mellitus, CVA, hypertension, hyperlipidemia, CKD, NSTEMI who presents with worsening shortness of breath over the past few days likely an acute CHF exacerbation. Acute on Chronic diastolic HF --Echo July 2019 with EF of 55 to 60% with diastolic dysfunction. On home torsemide 40 mg twice daily. --cont IV diuresis. monitor I&O and renal function. Echo is pending. COVID negative. Elevated troponin Troponin indeterminate at 0.030. Likely secondary to CHF exacerbation. Patient without chest pain and EKG without ischemic changes. Trop flat, Echo pending Chronic kidney disease Hx of CKD with baseline Cr of 2.2. BUN/Cr on presentation 46/2.58. Likely component of cardiorenal. Will continue to diurese 2/2 acute CHF and monitor kidney function. Plan -Trend kidney function -Avoid nephrotoxic agents where possible -Renal dosing as appropriate Hypertension History of hypertension on home Coreg 25 mg and hydralazine 25 mg 3 times daily. We will continue once dosages are confirmed. Hyperlipidemia We will continue home statin. Type 2 diabetes mellitus History of type 2 diabetes on regular insulin. Will place on half dose regular insulin and moderate insulin sliding scale. Plan Half dose home insulin Insulin sliding scale ACHS glucose checks DVT prophylaxissubcutaneous heparin Full codeMDM is patient's daughter Case discussed with attending physician, Dr. Coburn.
[2020-08-22] MEDS: Rosuvastatin 10 MG TAB PO SCH (21:48)
[2020-08-22] MEDS: Acetaminophen 325 MG TAB PO PRN (21:49)
[2020-08-23 05:04] LABS: #Basophils 0.1 thou/uL (0.0-0.2); #Eosinphils 0.3 thou/uL (0.0-0.7); #Monocytes 0.7 thou/uL (0.11-0.59); #Neutrophils 3.9 thou/uL (1.40-6.50); %Eosinophils 4.4 % (0.0-10.0); %Lymphocytes 37.2 % (21.0-51.0); %Monocytes 8.9 % (0.0-10.0); %Neutrophils 48.6 % (42.0-75.0); Hemoglobin 9.4 g/dL (12.0-16.0); Mean Corpuscular HGB CONC 32.4 g/dL (32.0-36.0); Mean Corpuscular Hemoglobin 27.3 pg (27.0-31.0); Mean Corpuscular Volume 84.2 fL (78.0-98.0); Mean Platelet Volume 10.6 fL (7.4-10.4); Platelet Count 170 thou/uL (130-400); RBC Distribution Width 15.6 % (11.5-14.5); Red Blood Cell (RBC) Count 3.45 mill/uL (4.20-5.40); White Blood Cell (WBC) Count 7.9 thou/uL (4.8-10.8)
[2020-08-23 05:23] LABS: Anion Gap 16 mmol/L (10-20); BUN (Urea Nitrogen) 53 mg/dL (9.8-20.1); Calc. Creatinine Clearance 25 mL/min (70-130); Calcium 7.1 mg/dL (7.8-10.44); Carbon Dioxide 26 mmol/L (23-31); Chloride 100 mmol/L (98-107); Glucose 123 mg/dL (80-115); Potassium 3.4 mmol/L (3.5-5.1); Sodium 139 mmol/L (136-145)
[2020-08-23] MEDS: Furosemide 100 MG/10 ML VIAL SLOW IVP SCH (05:44)
[2020-08-23] MEDS: Heparin 5,000 UNITS/ML VIAL SC SCH ×3 (08:22→20:54)
[2020-08-23] MEDS: Aspirin 325 MG TAB PO SCH (08:23)
[2020-08-23] MEDS ORDERED: Dextrose 50% Abboject 50 ML SYRINGE SLOW IVP PRN (11:04)
[2020-08-23] MEDS ORDERED: Dextrose 5% in Water 1,000 ML IV PRN (11:04)
[2020-08-23] MEDS: Insulin Regular 300 UNITS/3 ML VIAL SC PRN (12:05)
[2020-08-23] MEDS: Sodium Chloride 0.9% 1,000 ML IV SCH (12:06)
--- NOTE | 2020-08-23 12:15 | CON ---
DATE OF CONSULTATION: 08/23/2020 CONSULTING PHYSICIAN: Dr. Ayala. REASON FOR CONSULTATION: Acute kidney injury on chronic kidney disease. REASON FOR ADMISSION: Shortness of breath. HISTORY OF PRESENT ILLNESS: This is a 60-year-old female with history of CVA, coronary artery disease, type-2 diabetes, hyperlipidemia, came to the hospital with shortness of breath and was diuresing. Her creatinine showed bump and Nephrology was consulted. Creatinine is right now 3.2. Her baseline seems to be around 2.1 to 2.5. She is not on any followup with Nephrology. No fever or chills. No nausea or vomiting. PAST MEDICAL HISTORY: Positive for; 1. Chronic kidney disease. 2. CHF. 3. Type-2 diabetes. 4. CVA. 5. Coronary artery disease. 6. Hypertension. 7. Hyperlipidemia. PAST SURGICAL HISTORY: 1. Hernia repair. 2. . HOME MEDICATIONS: Reviewed. ALLERGIES: SULFA, PENICILLIN. SOCIAL HISTORY: No smoking, alcohol, or illicit drug abuse. FAMILY HISTORY: No history of kidney disease. REVIEW OF SYSTEMS: CONSTITUTIONAL: Negative for weight loss or gain, ability to conduct usual activities. SKIN: Negative for rash, itching. EYES: Negative for double vision, pain. ENT/MOUTH: Negative for nose bleeding, neck stiffness, pain, tenderness. CARDIOVASCULAR: Negative for palpitations, dyspnea on exertion, orthopnea. RESPIRATORY: Negative for shortness of breath, wheezing, cough, hemoptysis, fever or night sweats. GASTROINTESTINAL: Negative for poor appetite, abdominal pain, heartburn, nausea, vomiting, constipation, or diarrhea. GENITOURINARY: Negative for urgency, frequency, dysuria, nocturia. MUSCULOSKELETAL: Negative for pain, swelling. NEUROLOGIC/PSYCHIATRIC: Negative for anxiety, depression. ALLERGY/IMMUNOLOGIC: Negative for skin rash, bleeding tendency. PHYSICAL EXAMINATION: GENERAL: This is a well-built female, in no apparent distress. VITAL SIGNS: Temperature 98.5, pulse 77, respiratory rate 20, blood pressure 140/67. HEENT: Atraumatic, normocephalic. Oral mucosa is moist. NECK: Supple. CV: S1, S2. Rate and rhythm regular. RESPIRATORY: Clear. GASTROINTESTINAL: Abdomen is soft. MUSCULOSKELETAL: 1+ edema. DERMATOLOGIC: No skin rash. NEUROLOGIC: Alert and awake. PSYCHIATRIC: Mood and affect normal. LABORATORY DATA: Hemoglobin is 9.4. Potassium 3.4, BUN is 53, and creatinine is 3.2. ASSESSMENT AND PLAN: 1. Acute kidney injury on chronic kidney disease stage 4, most likely from diuresis. Agree with holding diuretics and titrating. We will check renal ultrasound. We will check CKD labs. 2. Hypokalemia. Replace and monitor cautiously. 3. Hypocalcemia. We will check PTH and vitamin D. 4. Anemia. Check iron studies and consider EBEN. 5. Proteinuria. We will check urine studies. We will check CKD labs. Agree with holding diuretics. Avoid any nephrotoxins and hydration if tolerated. Thank you for the consult. Job ID: [id number]
--- NOTE | 2020-08-23 12:27 | PQF ---
CLINICAL DOCUMENTATION CLARIFICATION FORM: Dear Dr. RAJIV CRAWFORD Date: 08-23-20 Please exercise your independent, professional judgment in responding to the clarification form. Clinical indicators are provided on the bottom of this form for your review. Please check appropriate box(es): [ ] Acute Renal Failure (ARF) / Acute Kidney Injury (KATARZYNA) [ X ] Acute on Chronic Renal Failure please specify Stage of CKD ___3 (see below) [ ] CKD without ARF/KATARZYNA please specify Stage of CKD [ ] Other diagnosis [ ] Unable to determine In addition, please specify: Present on Admission (POA): [ ] Yes [X ] No [ ] Unable to determine For continuity of documentation, please document condition throughout progress notes and discharge summary. Thank You. To be completed by CDI/Coding staff for physician review: CLINICAL INDICATORS - SIGNS / SYMPTOMS / LABS / RESULTS AND LOCATION IN MR: H&P 08-21-20: HX OF CKD WITH BASELINE CR 2.2. BUN/CR ON PRESENTATION 46/2.58. LIKELY COMPONENT OF CARDIORENAL. WILL CONTINUE TO DIURESE 2/2 ACUTE CHF AND MONITOR KIDNEY FUNCTION. PLAN: TREND KIDNEY FUNCTION, AVOID NEPHROTOXIC AGENTS WHERE POSSIBLE, RENAL DOSING APPROPRIATE. GFR: 08-21-20: 23 08-18-20: 21 08-23-20: 18 CREATININE: 08-21-20: 2.58 08-22-20: 2.72 08-23-20: 3.20 BUN: 08-21-20: 46 08-22-20: 44 08-23-20: 53 RISK FACTORS / RESULTS AND LOCATION IN MR: H&P 08-21-20: AT HOME HE TAKES 40MG OF TORSEMIDE TWICE DAILY, RECEIVED 40MG IV LASIX IN THE ER TREATMENTS / RESULTS AND LOCATION IN MR: H&P 08-21-20: PLAN: TREND KIDNEY FUNCTION, AVOID NEPHROTOXIC AGENTS WHERE POSSIBLE, RENAL DOSING APPROPRIATE. National [employer] Guidelines for CKD Staging Stage I Kidney damage with normal or increased GFR GFR > 90 Stage II Kidney damage with mildly decreased GFR GFR 60-89 Stage III Kidney damage with moderately decreased GFR GFR 30-59 Stage IV Kidney damage with severely decreased GFR GFR 16-29 Stage V Kidney failure GFR<15 ESRD End Stage Renal Disease On dialysis Acute Renal Failure/Acute Kidney Failure defined as: Increases in SCr by (>) 0.3 mg/dl within 48 hours OR- Increases in SCr by (>) 1.5 times baseline, known or presumed to have occurred within the prior 7 days OR- Urine volume < 0.5 ml/kg/hour for 6 hours (KDIGO supplement 2012 for RIFLE/PATRICK criteria) CDS Signature: Shoshana Edson Phone #: [phone] Date: 08-23-20 This is a permanent part of the Medical Record [facility]
--- NOTE | 2020-08-23 14:57 | PDOC.HOSPP ---
- Subjective Subjective: Was seen examined at bedside. Her creatinine is trending upward to 3.2 this morning. Likely due to overdiuresis. Appreciate Dr. Denise input - Objective Vital Signs & Weight: Vital Signs (12 hours) Temp Pulse Pulse Pulse Resp BP BP 08/23/20 11:42 98.3 F 77 18 08/23/20 09:00 92 77 112/54 L 127/57 L 08/23/20 07:50 98.5 F 77 14 08/23/20 03:21 98.3 F 73 16 BP Pulse Ox 08/23/20 11:42 131/60 97 08/23/20 09:00 08/23/20 07:50 140/67 96 08/23/20 03:21 136/63 92 L Weight Weight 180 lb I&O: 08/22/20 08/23/20 08/24/20 06:59 06:59 06:59 Intake Total 138 498 Output Total 900 1350 Balance -108 -674 Result Diagrams: 08/23/20 04:26 08/23/20 04:26 Additional Labs: Accuchecks 08/23/20 08/23/20 08/22/20 10:47 05:56 20:33 POC Glucose 232 H 124 H 190 H 08/22/20 17:08 POC Glucose 164 H Radiology Reviewed by me: Yes EKG Reviewed by me: Yes Hospitalist ROS - Medication Medications: Active Medications Generic Name Dose Route Start Last Admin Trade Name Freq PRN Reason Stop Dose Admin Acetaminophen 650 mg 08/21/20 14:26 08/22/20 21:49 Acetaminophen 325 Mg Tab PO 650 mg Q6H PRN Administration Pain Aspirin 325 mg 08/22/20 09:00 08/23/20 08:23 Aspirin 325 Mg Tab PO 325 mg DAILY GLENN Administration Furosemide 80 mg 08/22/20 06:00 08/23/20 05:44 Furosemide 100 Mg/10 Ml Vial SLOW IVP 80 mg 0600,1400 GLENN Administration Heparin Sodium (Porcine) 5,000 units 08/21/20 21:00 08/23/20 14:14 Heparin 5,000 Units/Ml Vial SC 5,000 units TID GLENN Administration Sodium Chloride 1,000 mls @ 50 mls/hr 08/23/20 10:45 08/23/20 12:06 Normal Saline 0.9% IV 1,000 mls .Q20H GLENN Administration Insulin Human Regular 0 units 08/23/20 11:04 08/23/20 12:05 Insulin Regular 300 Units/3 Ml Vial SC 4 unit .MODERATE SLIDING SC PRN Administration Moderate Correctional Scale Rosuvastatin Calcium 10 mg 08/22/20 21:00 08/22/20 21:48 Rosuvastatin 10 Mg Tab PO 10 mg HS GLENN Administration - Exam General Appearance: NAD Eye: PERRL ENT: normocephalic atraumatic Neck: supple Heart: RRR Respiratory: CTAB, no wheezes Gastrointestinal: soft, non-tender Extremities: no cyanosis Skin: normal turgor, no lesions Neurological: cranial nerve grossly intact Musculoskeletal: normal tone Psychiatric: normal affect Hosp A/P - Plan 60-year-old female past medical history of diastolic heart failure, type 2 diabetes mellitus, CVA, hypertension, hyperlipidemia, CKD, NSTEMI who presents with worsening shortness of breath over the past few days likely an acute CHF exacerbation. KATARZYNA on CKD3 --Likely due to overdiuresis. Will hold his diuretic. Give back some IV fluid, 500 ml run at 50 ml/hr --follow AM labs --Appreciate Dr. Denise input Acute on Chronic diastolic HF --Echo July 2019 with EF of 55 to 60% with diastolic dysfunction. --Now overdiuresed. Hold diuretic Elevated troponin Troponin indeterminate at 0.030. Likely secondary to CHF exacerbation. Patient without chest pain and EKG without ischemic changes. Trop flat, Echo pending Hypertension History of hypertension on home Coreg 25 mg and hydralazine 25 mg 3 times daily. We will continue once dosages are confirmed. Hyperlipidemia We will continue home statin. Type 2 diabetes mellitus --cont ISS DVT prophylaxissubcutaneous heparin Full codeMDM is patient's daughter Case discussed with attending physician, Dr. Coburn.
--- NOTE | 2020-08-23 15:46 | ULT ---
RENAL ULTRASOUND HISTORY: Acute renal injury COMPARISON: None FINDINGS: Right Kidney: Size: 7.9 x 4.7 x 4.8 cm Abnormality: Normal cortical echotexture. No hydronephrosis. Left Kidney: Size: 9.4 x 4.5 x 5.6 cm Abnormality: Normal cortical echotexture. No hydronephrosis Urinary bladder: Prevoid bladder volume was 92 cc. No intraluminal mass is grossly evident. IMPRESSION: No hydronephrosis.
[2020-08-23 18:09] LABS: Creatinine, Urine 90.08 mg/dL (47-110)
[2020-08-23] MEDS: Rosuvastatin 10 MG TAB PO SCH (20:55)
[2020-08-23] MEDS: Acetaminophen 325 MG TAB PO PRN (20:55)
[2020-08-24 04:40] LABS: #Basophils 0.1 thou/uL (0.0-0.2); #Eosinphils 0.5 thou/uL (0.0-0.7); #Lymphocytes 3.4 thou/uL (1.20-3.40); #Monocytes 0.9 thou/uL (0.11-0.59); #Neutrophils 5.3 thou/uL (1.40-6.50); %Basophils 1.1 % (0.0-1.0); %Eosinophils 4.7 % (0.0-10.0); %Lymphocytes 33.3 % (21.0-51.0); %Neutrophils 51.9 % (42.0-75.0); Mean Corpuscular HGB CONC 32.4 g/dL (32.0-36.0); Mean Corpuscular Hemoglobin 27.3 pg (27.0-31.0); Mean Corpuscular Volume 84.2 fL (78.0-98.0); Mean Platelet Volume 10.1 fL (7.4-10.4); Platelet Count 168 thou/uL (130-400); RBC Distribution Width 15.3 % (11.5-14.5); White Blood Cell (WBC) Count 10.2 thou/uL (4.8-10.8)
[2020-08-24 04:59] LABS: Anion Gap 17 mmol/L (10-20); BUN (Urea Nitrogen) 56 mg/dL (9.8-20.1); Calc. Creatinine Clearance 24 mL/min (70-130); Carbon Dioxide 25 mmol/L (23-31); Chloride 100 mmol/L (98-107); Glucose 127 mg/dL (80-115); Potassium 3.7 mmol/L (3.5-5.1); Sodium 138 mmol/L (136-145)
[2020-08-24 05:00] LABS: Iron 31 ug/dL (50-170); Iron Binding Capacity, Total 236 mcg/dL (265-497)
[2020-08-24] MEDS: Sodium Chloride 0.9% 1,000 ML IV SCH (05:37)
[2020-08-24] MEDS: Carvedilol 6.25 MG TAB PO SCH ×2 (09:25→21:30)
[2020-08-24] MEDS: Heparin 5,000 UNITS/ML VIAL SC SCH ×3 (09:25→21:31)
[2020-08-24] MEDS: Aspirin 325 MG TAB PO SCH (09:25)
[2020-08-24] MEDS: Insulin Regular 300 UNITS/3 ML VIAL SC PRN (11:33)
--- NOTE | 2020-08-24 12:24 | PDOC.HOSPP ---
- Subjective Subjective: Seen examined at bedside. She is still lethargic. Her renal function improved slightly, creatinines went down from 3.2-3.1. She was given some volume back yesterday, 5 cc. Her blood pressure stable. Appreciate input nephrology. Her renal ultrasound was negative for hydronephrosis. - Objective Vital Signs & Weight: Vital Signs (12 hours) Temp Pulse Resp BP Pulse Ox 08/24/20 07:42 98.0 F 74 17 133/67 97 08/24/20 04:00 98.2 F 98 16 180/81 H 94 L 08/24/20 00:54 97 Weight Weight 197 lb I&O: 08/23/20 08/24/20 08/25/20 06:59 06:59 06:59 Intake Total 498 660 Output Total 1350 420 Balance -852 240 Result Diagrams: 08/24/20 04:25 08/24/20 04:25 Additional Labs: Accuchecks 08/24/20 08/23/20 08/23/20 10:37 19:34 16:55 POC Glucose 158 H 187 H 122 H Hospitalist ROS - Medication Medications: Active Medications Generic Name Dose Route Start Last Admin Trade Name Freq PRN Reason Stop Dose Admin Acetaminophen 650 mg 08/21/20 14:26 08/23/20 20:55 Acetaminophen 325 Mg Tab PO 650 mg Q6H PRN Administration Pain Aspirin 325 mg 08/22/20 09:00 08/24/20 09:25 Aspirin 325 Mg Tab PO 325 mg DAILY GLENN Administration Carvedilol 6.25 mg 08/24/20 09:00 08/24/20 09:25 Carvedilol 6.25 Mg Tab PO 6.25 mg BID GLENN Administration Furosemide 80 mg 08/22/20 06:00 08/23/20 05:44 Furosemide 100 Mg/10 Ml Vial SLOW IVP 80 mg 0600,1400 GLENN Administration Heparin Sodium (Porcine) 5,000 units 08/21/20 21:00 08/24/20 09:25 Heparin 5,000 Units/Ml Vial SC 5,000 units TID GLENN Administration Sodium Chloride 1,000 mls @ 50 mls/hr 08/23/20 10:45 08/24/20 05:37 Normal Saline 0.9% IV Not Given .Q20H [facility] Insulin Human Regular 0 units 08/23/20 11:04 08/24/20 11:33 Insulin Regular 300 Units/3 Ml Vial SC 2 unit .MODERATE SLIDING SC PRN Administration Moderate Correctional Scale Rosuvastatin Calcium 10 mg 08/22/20 21:00 08/23/20 20:55 Rosuvastatin 10 Mg Tab PO 10 mg HS GLENN Administration Tramadol HCl 50 mg 08/22/20 12:29 08/24/20 00:36 Tramadol Hcl 50 Mg Tab PO 50 mg Q12H PRN Administration Mild Pain (1-3) - Exam General Appearance: NAD Eye: PERRL ENT: normocephalic atraumatic Neck: supple Heart: RRR Respiratory: CTAB Gastrointestinal: soft Extremities: no cyanosis, no clubbing, 1+ LE edema Skin: normal turgor Hosp A/P - Plan 60-year-old female past medical history of diastolic heart failure, type 2 diabetes mellitus, CVA, hypertension, hyperlipidemia, CKD, NSTEMI who presents with worsening shortness of breath over the past few days likely an acute CHF exacerbation. KATARZYNA on CKD3 --Likely due to overdiuresis. Will cont to hold her diuretic. Gave back some volume yesterday (500mL), Cr improved some (baseline ~2.5) --follow AM labs --Appreciate Dr. Denise input Acute on Chronic diastolic HF --Echo July 2019 with EF of 55 to 60% with diastolic dysfunction. --Now overdiuresed. Hold diuretic. Elevated troponin Troponin indeterminate at 0.030. Likely secondary to CHF exacerbation. Patient without chest pain and EKG without ischemic changes. Trop flat, Echo pending Hypertension History of hypertension on home Coreg 25 mg and hydralazine 25 mg 3 times daily. We will continue once dosages are confirmed. Hyperlipidemia We will continue home statin. Type 2 diabetes mellitus --cont ISS DVT prophylaxissubcutaneous heparin Full codeMDM is patient's daughter
[2020-08-24] MEDS ORDERED: Iron, Sodium Ferric Gluconate 250 MG in Sodium Chloride 0.9% 100 ML IVPB SCH (12:45)
[2020-08-24] MEDS ORDERED: Iron Sucrose Complex 200 MG in Sodium Chloride 0.9% 100 ML IVPB SCH (12:45)
--- NOTE | 2020-08-24 18:02 | PRG ---
DATE OF SERVICE: 08/24/2020 SUBJECTIVE: Patient was seen and examined at bedside and overnight events noted. Patient denies any shortness of breath or chest pain or palpitation. No history of nausea or vomiting or diarrhea or fever or chills or cramps. OBJECTIVE: GENERAL: This is well-built female in no apparent distress. VITAL SIGNS: Temperature 98.4. Heart Rate 77. Respiratory rate 18. Blood pressure 150/69. HEENT: Atraumatic, normocephalic. Oral mucosa is moist. NECK: Supple. CARDIOVASCULAR: S1, S2 heard. Rate and rhythm regular. RESPIRATORY: Clear to auscultation. GASTROINTESTINAL: Abdomen is soft. MUSCULOSKELETAL: No tenderness. No edema. DERMATOLOGIC: No skin rash. NEUROLOGIC: Alert and awake and oriented x3. No focal neurologic deficits. Moving all the extremities. PSYCHIATRIC: Mood and affect normal. LABORATORY DATA: Potassium 3.7, BUN is 56, creatinine is 3.1. ASSESSMENT AND PLAN: 1. Acute kidney injury on chronic kidney disease, stage 4, most likely from hemodynamic renal injury. Agree with holding diuretics. Monitor renal function, which is getting better. 2. Hypokalemia. 3. Hypocalcemia. 4. Proteinuria. 5. Secondary hyperparathyroidism with vitamin D deficiency. We will start on vitamin D. 6. Iron deficiency. 7. Anemia of chronic disease. Renal ultrasound ordered, which did not show any hydronephrosis, but bilateral small kidneys, most likely from ischemic nephropathy. We will monitor labs. Avoid nephrotoxins. We will start on vitamin D pills. Job ID: [id number]
[2020-08-24] MEDS: Rosuvastatin 10 MG TAB PO SCH (21:30)
[2020-08-24] MEDS: Docusate 100 MG CAP PO SCH (21:31)
[2020-08-25] MEDS: Sodium Chloride 0.9% 1,000 ML IV SCH (03:25)
[2020-08-25 04:51] LABS: #Basophils 0.1 thou/uL (0.0-0.2); #Eosinphils 0.4 thou/uL (0.0-0.7); #Lymphocytes 3.1 thou/uL (1.20-3.40); #Monocytes 0.9 thou/uL (0.11-0.59); #Neutrophils 5.8 thou/uL (1.40-6.50); %Basophils 0.8 % (0.0-1.0); %Eosinophils 4.1 % (0.0-10.0); %Lymphocytes 29.9 % (21.0-51.0); %Monocytes 9.1 % (0.0-10.0); %Neutrophils 56.1 % (42.0-75.0); Hemoglobin 9.8 g/dL (12.0-16.0); Mean Corpuscular HGB CONC 31.1 g/dL (32.0-36.0); Mean Corpuscular Hemoglobin 26.2 pg (27.0-31.0); Mean Corpuscular Volume 84.2 fL (78.0-98.0); Mean Platelet Volume 10.5 fL (7.4-10.4); Platelet Count 192 thou/uL (130-400); RBC Distribution Width 15.4 % (11.5-14.5); Red Blood Cell (RBC) Count 3.72 mill/uL (4.20-5.40); White Blood Cell (WBC) Count 10.3 thou/uL (4.8-10.8)
[2020-08-25 05:11] LABS: Anion Gap 17 mmol/L (10-20); BUN (Urea Nitrogen) 59 mg/dL (9.8-20.1); Calc. Creatinine Clearance 28 mL/min (70-130); Calcium 6.8 mg/dL (7.8-10.44); Carbon Dioxide 23 mmol/L (23-31); Chloride 101 mmol/L (98-107); Glucose 134 mg/dL (80-115); Potassium 3.8 mmol/L (3.5-5.1); Sodium 137 mmol/L (136-145)
[2020-08-25] MEDS ORDERED: Ergocalciferol 1.25 MG(50,000 UNITS) CAP PO SCH (09:00)
[2020-08-25] MEDS: Aspirin 325 MG TAB PO SCH (09:53)
[2020-08-25] MEDS: Heparin 5,000 UNITS/ML VIAL SC SCH ×3 (09:53→20:28)
[2020-08-25] MEDS: Docusate 100 MG CAP PO SCH ×2 (09:53→20:29)
[2020-08-25] MEDS: Carvedilol 6.25 MG TAB PO SCH ×2 (09:53→20:30)
[2020-08-25] MEDS: Ferrous Gluconate 324 MG TAB PO SCH (09:53)
--- NOTE | 2020-08-25 13:13 | PDOC.HOSPP ---
- Subjective Encounter Date: 08/25/20 Encounter Time: 09:30 Subjective: Patient doing well actually she is sleeping. On awakening appropriate response. I did not appreciate much pitting edema in her lower extremities. - Objective Vital Signs & Weight: Vital Signs (12 hours) Temp Pulse Resp BP BP Pulse Ox 08/25/20 10:37 98.3 F 68 16 134/63 96 08/25/20 09:53 172/75 H 08/25/20 09:28 97.9 F 68 20 172/75 H 96 08/25/20 04:00 98.5 F 70 14 139/63 97 08/25/20 02:45 96 Weight Weight 193 lb 8 oz I&O: 08/24/20 08/25/20 08/26/20 06:59 06:59 06:59 Intake Total 660 340 Output Total 420 600 Balance 240 -260 Result Diagrams: 08/25/20 04:35 08/25/20 04:35 Additional Labs: Accuchecks 08/25/20 08/25/20 08/24/20 10:42 06:06 20:32 POC Glucose 127 H 131 H 207 H 08/24/20 08/24/20 17:23 06:22 POC Glucose 147 H 118 H Hospitalist ROS - Medication Medications: Active Medications Generic Name Dose Route Start Last Admin Trade Name Arsalanq PRN Reason Stop Dose Admin Acetaminophen 650 mg 08/21/20 14:26 08/23/20 20:55 Acetaminophen 325 Mg Tab PO 650 mg Q6H PRN Administration Pain Aspirin 325 mg 08/22/20 09:00 08/25/20 09:53 Aspirin 325 Mg Tab PO 325 mg DAILY GLENN Administration Carvedilol 6.25 mg 08/24/20 09:00 08/25/20 09:53 Carvedilol 6.25 Mg Tab PO 6.25 mg BID GLENN Administration Docusate Sodium 100 mg 08/24/20 21:00 08/25/20 09:53 Docusate 100 Mg Cap PO 100 mg BID GLENN Administration Ergocalciferol 1.25 mg 08/25/20 09:00 08/25/20 09:53 Ergocalciferol 1.25 Mg(50,000 Units) Cap PO 1.25 mg Q7DAYS GLENN Administration Ferrous Gluconate 324 mg 08/25/20 08:00 08/25/20 09:53 Ferrous Gluconate 324 Mg Tab PO 324 mg QAM-WM GLENN Administration Furosemide 80 mg 08/22/20 06:00 08/23/20 05:44 Furosemide 100 Mg/10 Ml Vial SLOW IVP 80 mg 0600,1400 GLENN Administration Heparin Sodium (Porcine) 5,000 units 08/21/20 21:00 08/25/20 09:53 Heparin 5,000 Units/Ml Vial SC 5,000 units TID GLENN Administration Sodium Chloride 1,000 mls @ 50 mls/hr 08/23/20 10:45 08/25/20 03:25 Normal Saline 0.9% IV Not Given .Q20H GLENN Insulin Human Regular 0 units 08/23/20 11:04 08/24/20 11:33 Insulin Regular 300 Units/3 Ml Vial SC 2 unit .MODERATE SLIDING SC PRN Administration Moderate Correctional Scale Rosuvastatin Calcium 10 mg 08/22/20 21:00 08/24/20 21:30 Rosuvastatin 10 Mg Tab PO 10 mg HS GLENN Administration Tramadol HCl 50 mg 08/22/20 12:29 08/24/20 00:36 Tramadol Hcl 50 Mg Tab PO 50 mg Q12H PRN Administration Mild Pain (1-3) - Exam General Appearance: NAD, awake alert Eye: PERRL ENT: normocephalic atraumatic Neck: supple Heart: RRR, normal peripheral pulses Respiratory: CTAB, normal chest expansion Neurological: cranial nerve grossly intact, no focal deficits Psychiatric: A&O x 3 Hosp A/P - Plan 60-year-old female past medical history of diastolic heart failure, type 2 diabetes mellitus, CVA, hypertension, hyperlipidemia, CKD, NSTEMI who presents with worsening shortness of breath over the past few days likely an acute CHF exacerbation. KATARZYNA on CKD3 --Likely due to overdiuresis. Will cont to hold her diuretic. Gave back some volume yesterday (500mL), Cr improved some (baseline ~2.5) --Appreciate Dr. Denise input Acute on Chronic diastolic HF --Echo July 2019 with EF of 55 to 60% with diastolic dysfunction. --Now overdiuresed. Hold diuretic. Elevated troponin Troponin indeterminate at 0.030. Likely secondary to CHF exacerbation. Patient without chest pain and EKG without ischemic changes. Hypertension History of hypertension on home Coreg 25 mg and hydralazine 25 mg 3 times daily. We will continue once dosages are confirmed. Hyperlipidemia We will continue home statin. Type 2 diabetes mellitus --cont ISS Physical therapy consult placed DVT prophylaxis subcutaneous heparin Full code MDM is patient's daughter
[2020-08-25] MEDS: hydrALAZINE 25 MG TAB PO SCH ×2 (16:03→20:29)
--- NOTE | 2020-08-25 17:08 | PRG ---
DATE OF SERVICE: 08/25/2020 SUBJECTIVE: Patient was seen and examined at bedside and overnight events noted. Patient denies any shortness of breath or chest pain or palpitation. No history of nausea or vomiting or diarrhea or fever or chills or cramps. OBJECTIVE: GENERAL: This is a well-built female, in no apparent distress. VITAL SIGNS: Temperature 98.6. Heart Rate 60. Respiratory rate 20. Blood pressure 126/60. HEENT: Atraumatic, normocephalic. Oral mucosa is moist. NECK: Supple. CARDIOVASCULAR: S1, S2 heard. Rate and rhythm regular. RESPIRATORY: Clear to auscultation. GASTROINTESTINAL: Abdomen is soft. MUSCULOSKELETAL: No tenderness. No edema. DERMATOLOGIC: No skin rash. NEUROLOGIC: Alert and awake and oriented x3. No focal neurologic deficits. Moving all the extremities. PSYCHIATRIC: Mood and affect normal. LABORATORY DATA: Potassium 3.8, BUN is 59, creatinine is 2.9. ASSESSMENT AND PLAN: 1. Acute kidney injury on chronic kidney disease stage 4, stable. 2. Edema. 3. . 4. Proteinuria. 5. Secondary hyperparathyroidism with vitamin D deficiency. 6. Anemia of chronic disease. 7. Hypocalcemia. We will start on calcium supplements. Renal function is better. We will follow. Job ID: [id number]
[2020-08-25] MEDS: Rosuvastatin 10 MG TAB PO SCH (20:28)
[2020-08-25] MEDS: Calcium Carbonate 600 MG TAB PO SCH (20:28)
[2020-08-25] MEDS: Acetaminophen 325 MG TAB PO PRN (20:30)
[2020-08-25] MEDS ORDERED: HumuLIN 70/30 (300 UNITS/3 ML VIAL) SC SCH ×2 (21:00→23:00)
[2020-08-26] MEDS: Levothyroxine Sodium 50 MCG TAB PO SCH (06:16)
[2020-08-26] MEDS: HumuLIN 70/30 (300 UNITS/3 ML VIAL) SC SCH (08:56)
[2020-08-26] MEDS: Aspirin 325 MG TAB PO SCH (08:57)
[2020-08-26] MEDS: Heparin 5,000 UNITS/ML VIAL SC SCH ×3 (08:57→20:43)
[2020-08-26] MEDS: hydrALAZINE 25 MG TAB PO SCH ×3 (08:57→20:43)
[2020-08-26] MEDS: Calcium Carbonate 600 MG TAB PO SCH ×2 (08:57→20:43)
[2020-08-26] MEDS: Carvedilol 6.25 MG TAB PO SCH ×2 (08:57→20:43)
[2020-08-26] MEDS: Ferrous Gluconate 324 MG TAB PO SCH (08:57)
[2020-08-26] MEDS: Docusate 100 MG CAP PO SCH ×2 (08:57→20:43)
--- NOTE | 2020-08-26 13:01 | PDOC.HOSPP ---
- Subjective Encounter Date: 08/26/20 Encounter Time: 09:50 Subjective: Patient doing well. She states that she is overall weak and needs help with ambulation. Trace edema seems to be improving. It appears that she is back to her baseline weight around 188. Not sure this weight is reliable though however roughly about 5 pound weight difference during the last few days. He has only 380 mL of negative fluid balance - Objective Vital Signs & Weight: Vital Signs (12 hours) Temp Pulse Resp BP Pulse Ox 08/26/20 08:54 97.7 F 70 16 146/63 H 96 08/26/20 04:00 98.6 F 78 16 133/61 97 08/26/20 01:10 96 Weight Weight 188 lb 1.6 oz I&O: 08/25/20 08/26/20 08/27/20 06:59 06:59 06:59 Intake Total 340 120 Output Total 600 500 Balance -260 -380 Result Diagrams: 08/25/20 04:35 08/25/20 04:35 Additional Labs: Accuchecks 08/26/20 08/26/20 08/25/20 10:28 05:32 20:04 POC Glucose 144 H 97 206 H 08/25/20 16:03 POC Glucose 175 H Hospitalist ROS - Medication Medications: Active Medications Generic Name Dose Route Start Last Admin Trade Name Lopez PRN Reason Stop Dose Admin Acetaminophen 650 mg 08/21/20 14:26 08/25/20 20:30 Acetaminophen 325 Mg Tab PO 650 mg Q6H PRN Administration Pain Aspirin 325 mg 08/22/20 09:00 08/26/20 08:57 Aspirin 325 Mg Tab PO 325 mg DAILY GLENN Administration Calcium Carbonate 600 mg 08/25/20 21:00 08/26/20 08:57 Calcium Carbonate 600 Mg Tab PO 600 mg BID GLENN Administration Carvedilol 6.25 mg 08/24/20 09:00 08/26/20 08:57 Carvedilol 6.25 Mg Tab PO 6.25 mg BID GLENN Administration Docusate Sodium 100 mg 08/24/20 21:00 08/26/20 08:57 Docusate 100 Mg Cap PO 100 mg BID GLENN Administration Ergocalciferol 1.25 mg 08/25/20 09:00 08/25/20 09:53 Ergocalciferol 1.25 Mg(50,000 Units) Cap PO 1.25 mg Q7DAYS GLENN Administration Ferrous Gluconate 324 mg 08/25/20 08:00 08/26/20 08:57 Ferrous Gluconate 324 Mg Tab PO 324 mg QAM-WM GLENN Administration Furosemide 80 mg 08/22/20 06:00 08/23/20 05:44 Furosemide 100 Mg/10 Ml Vial SLOW IVP 80 mg 0600,1400 GLENN Administration Heparin Sodium (Porcine) 5,000 units 08/21/20 21:00 08/26/20 08:57 Heparin 5,000 Units/Ml Vial SC 5,000 units TID GLENN Administration Hydralazine HCl 25 mg 08/25/20 15:00 08/26/20 08:57 Hydralazine 25 Mg Tab PO 25 mg TID GLENN Administration Insulin Human Isoph/Insulin Regular 25 units 08/26/20 09:00 08/26/20 08:56 Humulin 70/30 (300 Units/3 Ml Vial) SC 25 unit QAM GLENN Administration Insulin Human Regular 0 units 08/23/20 11:04 08/24/20 11:33 Insulin Regular 300 Units/3 Ml Vial SC 2 unit .MODERATE SLIDING SC PRN Administration Moderate Correctional Scale Levothyroxine Sodium 50 mcg 08/26/20 06:00 08/26/20 06:16 Levothyroxine Sodium 50 Mcg Tab PO 50 mcg 0600 GLENN Administration Rosuvastatin Calcium 10 mg 08/22/20 21:00 08/25/20 20:28 Rosuvastatin 10 Mg Tab PO 10 mg HS GLENN Administration Tramadol HCl 50 mg 08/22/20 12:29 08/24/20 00:36 Tramadol Hcl 50 Mg Tab PO 50 mg Q12H PRN Administration Mild Pain (1-3) - Exam General Appearance: NAD, awake alert, ill appearing Eye: PERRL ENT: normocephalic atraumatic Neck: supple Heart: RRR Respiratory: CTAB, normal chest expansion Gastrointestinal: soft, normal bowel sounds Extremities: 1+ LE edema Skin: normal turgor Neurological: cranial nerve grossly intact, no focal deficits Musculoskeletal: generalized weakness Psychiatric: A&O x 3 Hosp A/P - Plan 60-year-old female past medical history of diastolic heart failure, type 2 diabetes mellitus, CVA, hypertension, hyperlipidemia, CKD, NSTEMI who presents with worsening shortness of breath over the past few days likely an acute CHF exacerbation. KATARZYNA on CKD3 --Likely due to overdiuresis. Will cont to hold her diuretic. Gave back some volume yesterday (500mL), Cr improved some (baseline ~2.5) --Appreciate Dr. Denise input Acute on Chronic diastolic HF --Echo July 2019 with EF of 55 to 60% with diastolic dysfunction. --Now overdiuresed. Hold diuretic. Elevated troponin Troponin indeterminate at 0.030. Likely secondary to CHF exacerbation. Patient without chest pain and EKG without ischemic changes. Hypertension History of hypertension on home Coreg 25 mg and hydralazine 25 mg 3 times daily. We will continue once dosages are confirmed. Hyperlipidemia We will continue home statin. Type 2 diabetes mellitus --cont ISS Physical therapy consult placed DVT prophylaxis subcutaneous heparin Full code MDM is patient's daughter It appears that she is back to her baseline weight around 188. Not sure this weight is reliable though however roughly about 5 pound weight difference during the last few days. He has only 380 mL of negative fluid balance. Discussed with the patient the discharge options. She lives with daughter and prefers to go home when we are ready to discharge.
--- NOTE | 2020-08-26 16:18 | PRG ---
DATE OF SERVICE: 08/26/2020 SUBJECTIVE: Patient was seen and examined at bedside and overnight events noted. Patient denies any shortness of breath or chest pain or palpitation. No history of nausea or vomiting or diarrhea or fever or chills or cramps. OBJECTIVE: GENERAL: This is a well-built female, in no apparent distress. VITAL SIGNS: Temperature 97.7. Heart Rate 70. Respiratory rate 18. Blood pressure 146/63. HEENT: Atraumatic, normocephalic. Oral mucosa is moist. NECK: Supple. CARDIOVASCULAR: S1, S2 heard. Rate and rhythm regular. RESPIRATORY: Clear to auscultation. GASTROINTESTINAL: Abdomen is soft. MUSCULOSKELETAL: No tenderness. No edema. DERMATOLOGIC: No skin rash. NEUROLOGIC: Alert and awake and oriented x3. No focal neurologic deficits. Moving all the extremities. PSYCHIATRIC: Mood and affect normal. LABORATORY DATA: No labs done today. ASSESSMENT AND PLAN: 1. Acute kidney injury on chronic kidney disease, stage 4. Recheck labs. 2. Edema. 3. Proteinuria. 4. Secondary hyperparathyroidism. 5. Vitamin D deficiency. 6. Hypocalcemia. Order labs and monitor. Job ID: [id number]
[2020-08-26] MEDS: Rosuvastatin 10 MG TAB PO SCH (20:43)
[2020-08-26] MEDS ORDERED: HumuLIN 70/30 (300 UNITS/3 ML VIAL) SC SCH (21:00)
[2020-08-27 04:00] VITALS: TEMP 98.5
[2020-08-27 04:34] LABS: #Eosinphils 0.3 thou/uL (0.0-0.7); #Lymphocytes 3.1 thou/uL (1.20-3.40); #Monocytes 0.8 thou/uL (0.11-0.59); #Neutrophils 4.3 thou/uL (1.40-6.50); %Basophils 0.5 % (0.0-1.0); %Eosinophils 3.9 % (0.0-10.0); %Lymphocytes 36.1 % (21.0-51.0); %Monocytes 9.3 % (0.0-10.0); %Neutrophils 50.2 % (42.0-75.0); Hemoglobin 9.1 g/dL (12.0-16.0); Mean Corpuscular HGB CONC 31.8 g/dL (32.0-36.0); Mean Corpuscular Hemoglobin 26.8 pg (27.0-31.0); Mean Corpuscular Volume 84.3 fL (78.0-98.0); Mean Platelet Volume 10.7 fL (7.4-10.4); Platelet Count 158 thou/uL (130-400); RBC Distribution Width 15.5 % (11.5-14.5); Red Blood Cell (RBC) Count 3.41 mill/uL (4.20-5.40); White Blood Cell (WBC) Count 8.5 thou/uL (4.8-10.8)
[2020-08-27 05:06] LABS: Anion Gap 16 mmol/L (10-20); BUN (Urea Nitrogen) 54 mg/dL (9.8-20.1); Calc. Creatinine Clearance 28 mL/min (70-130); Calcium 8.3 mg/dL (7.8-10.44); Carbon Dioxide 24 mmol/L (23-31); Chloride 102 mmol/L (98-107); Glucose 172 mg/dL (80-115); Potassium 3.9 mmol/L (3.5-5.1); Sodium 138 mmol/L (136-145)
[2020-08-27] MEDS: Levothyroxine Sodium 50 MCG TAB PO SCH (05:56)
--- NOTE | 2020-08-27 08:47 | PRG ---
DATE OF SERVICE: 08/27/2020 SUBJECTIVE: A 60-year-old female being seen for . The patient denies any nausea, vomiting or chest pain. OBJECTIVE: GENERAL: The patient is awake, alert. VITAL SIGNS: Afebrile. Pulse 75, breathing 16, blood pressure was 116/72. HEENT: Head normocephalic and atraumatic. Eyes intact, no ulcers. Nose intact, no ulcers. Ears intact, no ulcers. NECK: Supple. No JVD. CHEST: Symmetrical and clear. CARDIOVASCULAR: Shows S1 and S2, no rub, no murmur. GASTROINTESTINAL: Abdomen is soft, bowel sounds positive. EXTREMITIES: Show no edema or ulcers. SKIN: Shows no rash or petechiae. MUSCULOSKELETAL: Shows no joint swelling or stiffness. GENITOURINARY: Shows no Faust or CVA tenderness. NEUROLOGIC: Motor intact. Cranial nerves intact. LABORATORY DATA: Reviewed. ASSESSMENT AND PLAN: 1. . 2. Hypertension, stable. 3. Anemia, stable. 4. Medication based on glomerular filtration rate are appropriate. 5. No indication for dialysis. Job ID: [id number]
[2020-08-27] MEDS: hydrALAZINE 25 MG TAB PO SCH (09:19)
[2020-08-27] MEDS: Docusate 100 MG CAP PO SCH (09:19)
[2020-08-27] MEDS: Aspirin 325 MG TAB PO SCH (09:19)
[2020-08-27] MEDS: Carvedilol 6.25 MG TAB PO SCH (09:20)
[2020-08-27] MEDS: Ferrous Gluconate 324 MG TAB PO SCH (09:20)
[2020-08-27] MEDS: Furosemide 20 MG TAB PO SCH ×2 (09:20→15:39)
[2020-08-27] MEDS: Calcium Carbonate 600 MG TAB PO SCH (09:20)
[2020-08-27] MEDS: Heparin 5,000 UNITS/ML VIAL SC SCH (09:20)
[2020-08-27] MEDS: HumuLIN 70/30 (300 UNITS/3 ML VIAL) SC SCH (10:17)
[2020-08-27] MEDS: Insulin Regular 300 UNITS/3 ML VIAL SC PRN (11:53)
--- NOTE | 2020-08-27 13:51 | PDOC.DS.DS ---
Provider - Provider Date of Admission: 08/21/20 15:51 Admitting Provider: Andrés Coburn MD Primary Care Physician: ROGER Gramajo Course - Hospital Course Hospital Course: 60-year-old female past medical history of diastolic heart failure, type 2 diabetes mellitus, CVA, hypertension, hyperlipidemia, CKD, NSTEMI who presents with worsening shortness of breath over the past few days likely an acute CHF exacerbation. KATAZRYNA on CKD3 --Cr improved some (baseline ~2.5) --Nephrology followed her during her stay. Her electrolyte panel is in the normal range including potassium at 3.9 and magnesium of 2.1. Her creatinine is 2.7 which is at baseline. Acute on Chronic diastolic HF --Echo done on August 22 showed EF of 55% concentric left ventricular hypertrophy no evidence of mitral regurgitation or mitral valve stenosis no aortic stenosis or regurgitation. -She last 3 to 4 pounds of weight with diuresis and restarted back on her torsemide her home regimen. She is on potassium supplement of 10 mEq twice a day I decreased that to once daily dose as part of discharge regimen. Elevated troponin Troponin indeterminate at 0.030. Likely secondary to CHF exacerbation. Patient without chest pain and EKG without ischemic changes. Hypertension History of hypertension on home Coreg 25 mg and hydralazine 25 mg 3 times daily. Blood pressure optimally controlled Hyperlipidemia We will continue home statin. Type 2 diabetes mellitus --She had a low blood glucose around 66 1 reading and her latest blood glucose readings are 1 50-2 08. Her insulin regimen slightly decreased from her home doses. Patient is stable to be discharged home today. Unfortunately her insurance would not allow to send her to inpatient rehab. She does not require any change in her diuretics --will resume her home torsemide along with a low-dose potassium supplement. Discharge time over 30 minutes. Resuscitation Status: 08/21/20 15:10 Resuscitation Status Routine Co-Sign Provider: Resuscitation Status: FULL: Full Resuscitation - Labs Lab Results: 08/27/20 04:13 08/27/20 04:13 Abnormal Lab Results - Last 48 hrs 08/27/20 04:13: BUN 54 H, Creatinine 2.79 H 08/27/20 04:13: RBC 3.41 L, Hgb 9.1 L, Hct 28.7 L, MCH 26.8 L, MCHC 31.8 L, RDW 15.5 H, MPV 10.7 H, Monocytes # 0.8 H - Physical Exam Vitals: Vital Signs (12 hours) Temp Pulse Resp BP Pulse Ox 08/27/20 11:47 98.5 F 74 18 171/77 H 96 08/27/20 07:25 98.5 F 70 15 173/74 H 98 08/27/20 04:00 98.5 F 68 16 161/72 H Weight Weight 188 lb 6 oz Physical Exam: The patient was seen and examined on the day of discharge. Patient is stable this morning. She has no acute events. Discussed in the multidisciplinary meeting. Her insurance would not allow any inpatient rehab or home health with physical therapy. Patient does not require additional therapy or home service as she seems to be at her baseline functional status/ambulating without any distress. She lives with daughter. Plan - Discharge Medications Home Medications: Medication Instructions Recorded Confirmed Type Acetaminophen [Tylenol Regular 650 mg PO Q6H PRN tab 02/10/18 08/22/20 Rx Strength] Carvedilol Phosphate [Carvedilol 6.25 mg PO BID 07/24/19 08/22/20 History ER] Rosuvastatin Calcium 20 mg PO HS 07/24/19 08/22/20 History Levothyroxine Sodium 50 mcg PO DAILY 08/22/20 08/22/20 History [Levothyroxine] Torsemide [Demadex] 20 mg PO QAM 08/22/20 08/22/20 History hydrALAZINE [Apresoline] 50 mg PO TID 08/22/20 08/22/20 History HumuLIN 70/30 [HumuLIN 70/30 Vial] 15 units SC HS vial 08/27/20 Rx HumuLIN 70/30 [HumuLIN 70/30 Vial] 20 units SC QAM #0 08/27/20 08/22/20 Rx Potassium Chloride 10 meq PO DAILY #0 08/27/20 08/22/20 Rx Allergies: Penicillins Allergy (Verified 08/21/20 17:24) Rash Sulfa (Sulfonamide Antibiotics) Allergy (Verified 08/21/20 17:24) Rash TIDE SOAP Allergy (Uncoded 02/03/18 15:35) Rash - Discharge Instructions Discharge Instructions:: Primary care physician in 1 week. Your insulin dose is decreased Your potassium supplement is only once a day ---do not take it twice a day. Your primary care physician should be able to check your labs during your next visit to make sure your electrolytes are in the normal level. Activity:: Activity as Tolerated Nourishment:: Heart Healthy Diet - Follow up Plan Referrals: Cardiac Rehab - [facility] [Outside] - 7 Days (Your doctor has ordered outpatient cardiac rehab for you to begin within 1-2 weeks after you go home from the hospital. The location nearest to you is the [facility]. We will call you in 3-5 days to get you scheduled for your evaluation. If you do not receive a call, please reach out to us at [phone] and request an appointment.) Cecily Hill FNP [Primary Care Provider] - Disposition: HOME Quality - Care Measures CORE MEASURES:: N/A
[2020-08-27 15:24] VITALS: BP 184/85
== END 2020-08-27 15:35 | disposition home or self-care (01) | DRG 291 ==
LOC: ERS 11:52 → 2NO 14:03 → OBSVTOIN 15:51
PROVIDERS: ADMIT Internal Medicine; ATTEND Internal Medicine
DX: I13.0 Hypertensive heart and chronic kidney disease with heart failure and stage 1 through stage 4 chronic kidney disease, or unspecified chronic kidney disease (principal); I50.33 Acute on chronic diastolic (congestive) heart failure; N17.9 Acute kidney failure, unspecified; E11.22 Type 2 diabetes mellitus with diabetic chronic kidney disease; R77.8 Other specified abnormalities of plasma proteins; Z20.828 Contact with and (suspected) exposure to other viral communicable diseases; E78.5 Hyperlipidemia, unspecified; Z88.0 Allergy status to penicillin; Z88.2 Allergy status to sulfonamides; I25.2 Old myocardial infarction; Z79.82 Long term (current) use of aspirin; Z79.4 Long term (current) use of insulin; Z79.899 Other long term (current) drug therapy; Z86.73 Personal history of transient ischemic attack (TIA), and cerebral infarction without residual deficits; E87.6 Hypokalemia; N18.30 Chronic kidney disease, stage 3 unspecified; D63.1 Anemia in chronic kidney disease; D50.9 Iron deficiency anemia, unspecified; E21.1 Secondary hyperparathyroidism, not elsewhere classified
CPT/HCPCS: 36415; 36416; 71045; 76770; 80048; 80053; 81003; 81015; 82306; 82553; 82570; 82728; 83540; 83550; 83735; 83880; 83970; 84156; 84443; 84484; 85025; 87635; 93005; 93306; 93798; 96372; 96374; 96375; 96376; G0378; J0360; J1644; J1815; J1940; J2916; J3490; U0003

== ENCOUNTER 2020-11-04 00:09 | Emergency (ER) | payer OTHER | END 2020-11-04 02:35 | disposition left against medical advice (07) | LOC: ERS 00:09 | DX: Z53.21 Procedure and treatment not carried out due to patient leaving prior to being seen by health care provider (principal) ==

== ENCOUNTER 2021-03-13 16:37 | Inpatient (IN) | payer OTHER ==
[2021-03-13 17:45] LABS: Mean Corpuscular HGB CONC 31.3 g/dL (32.0-36.0); Mean Corpuscular Hemoglobin 26.1 pg (27.0-31.0); Mean Corpuscular Volume 83.5 fL (78.0-98.0); RBC Distribution Width 15.4 % (11.5-14.5); Red Blood Cell (RBC) Count 3.84 mill/uL (4.20-5.40); White Blood Cell (WBC) Count 8.3 thou/uL (4.8-10.8)
[2021-03-13 18:11] LABS: Eosinophils 4 % (0-10); Lymphocytes 25 % (21-51); MDiff Complete? YES; Monocytes 10 % (0-10); Neutrophil 61 % (42-75)
[2021-03-13 19:30] LABS: AST (SGOT) 18 U/L (5-34); Anion Gap 21 mmol/L (10-20); Bilirubin, Total 0.4 mg/dL (0.2-1.2); Calc. Creatinine Clearance 0 mL/min (70-130); Calcium 7.8 mg/dL (7.8-10.44); Carbon Dioxide 13 mmol/L (23-31); Chloride 107 mmol/L (98-107); Globulin 4.8 g/dL (2.4-3.5); Potassium 4.3 mmol/L (3.5-5.1); Protein, Total 7.8 g/dL (5.8-8.1); Sodium 137 mmol/L (136-145)
[2021-03-13 21:18] LABS: Glucose 231 mg/dL (80-115)
[2021-03-13 21:21] LABS: Alkaline Phosphatase 70 U/L (40-110)
[2021-03-13 21:22] LABS: BUN (Urea Nitrogen) 37 mg/dL (9.8-20.1)
[2021-03-13 21:24] LABS: ALT (SGPT) 10 U/L (8-55)
[2021-03-13] MEDS ORDERED: HYDROcodone/Acetaminophen 5/325 mg Tablet ONE (22:05)
[2021-03-13] MEDS ORDERED: Lorazepam 2 MG/ML VIAL ONE (22:48)
[2021-03-13 22:53] LABS: Acetaminophen Less than 6.0 mcg/mL (10.0-30.0); Alcohol Less than 10 mg/dL (Less than 10); Salicylate Less than 8.0 mg/dL (15.0-30.0)
[2021-03-13] MEDS ORDERED: Nitroglycerin 50 MG/250 ML BOT 250 ML ONE (23:19)
[2021-03-14 00:26] LABS: Troponin I 0.023 ng/mL (< 0.028)
[2021-03-14] MEDS ORDERED: Furosemide 40 MG TAB ONE (00:57)
[2021-03-14] MEDS ORDERED: Furosemide 40 MG/4 ML VIAL ONE ×2 (00:58→13:58)
[2021-03-14 01:17] LABS: Actual Bicarbonate (HCO3a) 24.9 mEq/L (22-28); Analyzer IN Cardio ER; Base Excess (BEa) -0.3 mEq/L (-2.0 to +3.0); CO2 Tension 43.1 mmHg (35.0-45.0); Calcium, Ionized (arterial) 1.06 mmol/L (1.12-1.30); Carboxyhemoglobin (COHb) 0.3 gm% (0.0-3.0); Hemoglobin (Hb) 9.9 g/dL (12.0-16.0); O2 Tension (PaO2), arterial 103.8 mmHg (> 80.0); Potassium - ABG Lab 3.76 mmol/L (3.70-5.30); pH, Arterial 7.38 (7.35-7.45)
[2021-03-14 01:19] LABS: ALV-art Gradient 270.125 mmHg (0-20); Puncture Site RRA
[2021-03-14] MEDS ORDERED: Ondansetron PF 4 MG/2 ML Vial IVP PRN (01:39)
[2021-03-14] MEDS ORDERED: HumaLOG 300 UNITS/3 ML VIAL SC PRN ×3 (01:41→01:52)
[2021-03-14] MEDS ORDERED: Dextrose 5% in Water 1,000 ML IV PRN (01:41)
[2021-03-14] MEDS ORDERED: Dextrose 50% Abboject 50 ML SYRINGE SLOW IVP PRN (01:41)
[2021-03-14] MEDS ORDERED: hydrALAZINE 20 MG/ML VIAL SLOW IVP PRN (01:42)
[2021-03-14 02:20] LABS: SARS-CoV-2 NAA Rapid Test Not Detected (NotDetected)
[2021-03-14 04:30] LABS: #Basophils 0.1 thou/uL (0.0-0.2); #Eosinphils 0.2 thou/uL (0.0-0.7); #Lymphocytes 1.9 thou/uL (1.20-3.40); #Neutrophils 9.7 thou/uL (1.40-6.50); %Basophils 0.4 % (0.0-1.0); %Eosinophils 1.4 % (0.0-10.0); %Lymphocytes 14.9 % (21.0-51.0); %Monocytes 7.6 % (0.0-10.0); %Neutrophils 75.7 % (42.0-75.0); Hemoglobin 9.5 g/dL (12.0-16.0); Mean Corpuscular HGB CONC 32.2 g/dL (32.0-36.0); Mean Corpuscular Hemoglobin 26.8 pg (27.0-31.0); Mean Corpuscular Volume 83.3 fL (78.0-98.0); Mean Platelet Volume 10.7 fL (7.4-10.4); Platelet Count 149 thou/uL (130-400); Red Blood Cell (RBC) Count 3.54 mill/uL (4.20-5.40); White Blood Cell (WBC) Count 12.8 thou/uL (4.8-10.8)
[2021-03-14 04:44] LABS: Anion Gap 17 mmol/L (10-20); BUN (Urea Nitrogen) 36 mg/dL (9.8-20.1); Calc. Creatinine Clearance 0 mL/min (70-130); Calcium 7.9 mg/dL (7.8-10.44); Carbon Dioxide 19 mmol/L (23-31); Chloride 106 mmol/L (98-107); Glucose 187 mg/dL (80-115); Potassium 4.7 mmol/L (3.5-5.1); Sodium 137 mmol/L (136-145)
[2021-03-14 04:56] LABS: Troponin I 0.048 ng/mL (< 0.028)
[2021-03-14 05:54] VITALS: BMI 59.9
[2021-03-14] MEDS: Furosemide 40 MG/4 ML VIAL SLOW IVP SCH ×2 (06:00→14:08)
[2021-03-14] MEDS ORDERED: hydrALAZINE 25 MG TAB ONE ×2 (08:08→08:09)
[2021-03-14] MEDS ORDERED: Aspirin Chewable 81 MG TAB ONE (08:08)
[2021-03-14] MEDS ORDERED: Enoxaparin Sodium 30 MG/0.3 ML SYRINGE ONE (08:08)
[2021-03-14] MEDS ORDERED: Famotidine 20 MG TAB ONE (08:08)
[2021-03-14] MEDS ORDERED: HumaLOG 300 UNITS/3 ML VIAL ONE (08:08)
[2021-03-14] MEDS: HumaLOG 300 UNITS/3 ML VIAL SC PRN (08:34)
[2021-03-14] MEDS: Enoxaparin Sodium 30 MG/0.3 ML SYRINGE SC SCH (08:44)
[2021-03-14] MEDS: hydrALAZINE 25 MG TAB PO SCH ×4 (08:44→22:03)
[2021-03-14] MEDS: Carvedilol 6.25 MG TAB PO SCH ×2 (08:44→17:22)
[2021-03-14] MEDS: Aspirin 81 mg Enteric Coated Tablet PO SCH (08:45)
[2021-03-14] MEDS: Famotidine 20 MG TAB PO SCH (08:45)
[2021-03-14] MEDS ORDERED: Famotidine 20 MG TAB PO SCH (09:00)
[2021-03-14] MEDS ORDERED: Acetaminophen 325 MG TAB ONE ×2 (09:09→14:02)
[2021-03-14] MEDS: Acetaminophen 325 MG TAB PO PRN ×2 (09:13→14:06)
[2021-03-14] MEDS: Rosuvastatin 20 MG TAB PO SCH (22:04)
[2021-03-14] MEDS: HumuLIN 70/30 (300 UNITS/3 ML VIAL) SC SCH (22:09)
[2021-03-15] MEDS: Acetaminophen 325 MG TAB PO PRN (05:35)
[2021-03-15] MEDS: Furosemide 40 MG/4 ML VIAL SLOW IVP SCH ×2 (05:35→14:04)
[2021-03-15] MEDS: Levothyroxine Sodium 50 MCG TAB PO SCH (05:35)
[2021-03-15] MEDS: HumaLOG 300 UNITS/3 ML VIAL SC PRN (05:42)
[2021-03-15 05:46] LABS: #Basophils 0.1 thou/uL (0.0-0.2); #Eosinphils 0.3 thou/uL (0.0-0.7); #Lymphocytes 1.8 thou/uL (1.20-3.40); #Monocytes 0.7 thou/uL (0.11-0.59); #Neutrophils 5.3 thou/uL (1.40-6.50); %Basophils 1.2 % (0.0-1.0); %Eosinophils 3.2 % (0.0-10.0); %Lymphocytes 22.5 % (21.0-51.0); %Monocytes 8.5 % (0.0-10.0); %Neutrophils 64.7 % (42.0-75.0); Hemoglobin 9.7 g/dL (12.0-16.0); Mean Corpuscular Hemoglobin 25.8 pg (27.0-31.0); Mean Corpuscular Volume 83.1 fL (78.0-98.0); Mean Platelet Volume 10.7 fL (7.4-10.4); Platelet Count 161 thou/uL (130-400); RBC Distribution Width 14.9 % (11.5-14.5); Red Blood Cell (RBC) Count 3.77 mill/uL (4.20-5.40); White Blood Cell (WBC) Count 8.2 thou/uL (4.8-10.8)
[2021-03-15 06:06] LABS: Anion Gap 16 mmol/L (10-20); BUN (Urea Nitrogen) 38 mg/dL (9.8-20.1); Calc. Creatinine Clearance 31 mL/min (70-130); Calcium 8.2 mg/dL (7.8-10.44); Carbon Dioxide 23 mmol/L (23-31); Chloride 104 mmol/L (98-107); Glucose 159 mg/dL (80-115); Potassium 3.7 mmol/L (3.5-5.1); Sodium 139 mmol/L (136-145)
[2021-03-15] MEDS: HumuLIN 70/30 (300 UNITS/3 ML VIAL) SC SCH ×2 (09:11→22:08)
[2021-03-15] MEDS: hydrALAZINE 25 MG TAB PO SCH ×4 (09:12→20:21)
[2021-03-15] MEDS: Aspirin 81 mg Enteric Coated Tablet PO SCH (09:12)
[2021-03-15] MEDS: Famotidine 20 MG TAB PO SCH (09:12)
[2021-03-15] MEDS: Carvedilol 6.25 MG TAB PO SCH ×2 (09:13→17:52)
[2021-03-15] MEDS: Enoxaparin Sodium 30 MG/0.3 ML SYRINGE SC SCH (09:13)
[2021-03-15] MEDS: Potassium Chloride 10 MEQ TAB PO SCH (09:13)
[2021-03-15] MEDS: Rosuvastatin 20 MG TAB PO SCH (20:21)
[2021-03-16 05:04] LABS: #Eosinphils 0.3 thou/uL (0.0-0.7); #Lymphocytes 2.5 thou/uL (1.20-3.40); #Monocytes 0.9 thou/uL (0.11-0.59); #Neutrophils 4.3 thou/uL (1.40-6.50); %Basophils 0.5 % (0.0-1.0); %Eosinophils 3.7 % (0.0-10.0); %Lymphocytes 30.8 % (21.0-51.0); %Monocytes 11.4 % (0.0-10.0); %Neutrophils 53.6 % (42.0-75.0); Mean Corpuscular HGB CONC 33.1 g/dL (32.0-36.0); Mean Corpuscular Hemoglobin 27.1 pg (27.0-31.0); Mean Platelet Volume 10.8 fL (7.4-10.4); Platelet Count 162 thou/uL (130-400); RBC Distribution Width 14.9 % (11.5-14.5); Red Blood Cell (RBC) Count 3.31 mill/uL (4.20-5.40); White Blood Cell (WBC) Count 8.1 thou/uL (4.8-10.8)
[2021-03-16] MEDS: Levothyroxine Sodium 50 MCG TAB PO SCH (05:59)
[2021-03-16] MEDS: Furosemide 40 MG/4 ML VIAL SLOW IVP SCH (06:03)
[2021-03-16 06:20] LABS: Anion Gap 18 mmol/L (10-20); BUN (Urea Nitrogen) 46 mg/dL (9.8-20.1); Calc. Creatinine Clearance 27 mL/min (70-130); Calcium 7.9 mg/dL (7.8-10.44); Carbon Dioxide 24 mmol/L (23-31); Chloride 102 mmol/L (98-107); Glucose 125 mg/dL (80-115); Potassium 3.7 mmol/L (3.5-5.1); Sodium 140 mmol/L (136-145)
[2021-03-16] MEDS: Carvedilol 6.25 MG TAB PO SCH (09:21)
[2021-03-16] MEDS: Potassium Chloride 10 MEQ TAB PO SCH (09:22)
[2021-03-16] MEDS: Aspirin 81 mg Enteric Coated Tablet PO SCH (09:22)
[2021-03-16] MEDS: hydrALAZINE 25 MG TAB PO SCH (09:22)
[2021-03-16] MEDS: Famotidine 20 MG TAB PO SCH (09:22)
[2021-03-16] MEDS: Enoxaparin Sodium 30 MG/0.3 ML SYRINGE SC SCH (09:22)
[2021-03-16] MEDS: HumuLIN 70/30 (300 UNITS/3 ML VIAL) SC SCH (09:22)
[2021-03-16] MEDS: HumaLOG 300 UNITS/3 ML VIAL SC PRN (11:21)
[2021-03-16 11:38] VITALS: BP 160/61; TEMP 98.1
== END 2021-03-16 14:09 | disposition home or self-care (01) | DRG 291 ==
LOC: ERS 16:37 → ERHOLD 23:36 → 2SE 03-14 20:50
PROVIDERS: ADMIT Internal Medicine; ATTEND Internal Medicine
DX: I13.0 Hypertensive heart and chronic kidney disease with heart failure and stage 1 through stage 4 chronic kidney disease, or unspecified chronic kidney disease (principal); I50.43 Acute on chronic combined systolic (congestive) and diastolic (congestive) heart failure; N18.4 Chronic kidney disease, stage 4 (severe); E11.22 Type 2 diabetes mellitus with diabetic chronic kidney disease; E03.9 Hypothyroidism, unspecified; E78.5 Hyperlipidemia, unspecified; D63.8 Anemia in other chronic diseases classified elsewhere; Z79.4 Long term (current) use of insulin; Z79.899 Other long term (current) drug therapy; Z79.82 Long term (current) use of aspirin; Z88.0 Allergy status to penicillin; Z88.2 Allergy status to sulfonamides; Z88.8 Allergy status to other drugs, medicaments and biological substances; Z86.73 Personal history of transient ischemic attack (TIA), and cerebral infarction without residual deficits; I25.2 Old myocardial infarction
CPT/HCPCS: 36415; 36416; 36600; 71045; 80048; 80053; 80307; 82010; 82805; 83605; 83880; 84484; 85025; 93005; 94660; 94760; 96374; 96375; J1650; J1815; J1940; J2060; U0002; U0005

== ENCOUNTER 2021-09-08 01:03 | Inpatient (IN) | payer OTHER ==
[2021-09-08] MEDS ORDERED: Furosemide 100 MG/10 ML VIAL ONE (01:19)
[2021-09-08] MEDS ORDERED: Furosemide 40 MG/4 ML VIAL ONE (01:20)
[2021-09-08] MEDS ORDERED: Nitroglycerin 2% Ointment 1 INCH/1 GM Packet ONE (01:29)
[2021-09-08 01:32] LABS: #Basophils 0.1 thou/uL (0.0-0.2); #Eosinphils 0.3 thou/uL (0.0-0.7); #Lymphocytes 2.8 thou/uL (1.20-3.40); #Monocytes 0.6 thou/uL (0.11-0.59); #Neutrophils 6.2 thou/uL (1.40-6.50); %Basophils 0.5 % (0.0-1.0); %Eosinophils 3.2 % (0.0-10.0); %Lymphocytes 28.1 % (21.0-51.0); %Monocytes 6.2 % (0.0-10.0); %Neutrophils 61.9 % (42.0-75.0); Hemoglobin 9.4 g/dL (12.0-16.0); Mean Corpuscular HGB CONC 32.9 g/dL (32.0-36.0); Mean Corpuscular Hemoglobin 27.8 pg (27.0-31.0); Mean Corpuscular Volume 84.4 fL (78.0-98.0); Mean Platelet Volume 9.7 fL (7.4-10.4); Platelet Count 181 thou/uL (130-400); RBC Distribution Width 15.8 % (11.5-14.5); Red Blood Cell (RBC) Count 3.37 mill/uL (4.20-5.40)
[2021-09-08 01:50] LABS: ALT (SGPT) 22 U/L (8-55); AST (SGOT) 47 U/L (5-34); Albumin 3.3 g/dL (3.4-4.8); Alkaline Phosphatase 82 U/L (40-110); Anion Gap 14 mmol/L (10-20); BUN (Urea Nitrogen) 54 mg/dL (9.8-20.1); Bilirubin, Total 0.4 mg/dL (0.2-1.2); Calc. Creatinine Clearance 0 mL/min (70-130); Carbon Dioxide 23 mmol/L (23-31); Chloride 108 mmol/L (98-107); Globulin 4.9 g/dL (2.4-3.5); Glucose 159 mg/dL (80-115); Potassium 4.2 mmol/L (3.5-5.1); Protein, Total 8.2 g/dL (5.8-8.1); Sodium 141 mmol/L (136-145)
[2021-09-08 02:12] LABS: CKMB 2.2 ng/mL (0-6.6)
[2021-09-08] MEDS ORDERED: Lorazepam 1 MG TAB ONE (02:16)
[2021-09-08] MEDS ORDERED: Ondansetron PF 4 MG/2 ML Vial IVP PRN (02:49)
[2021-09-08] MEDS ORDERED: Dextrose 5% in Water 1,000 ML IV PRN (02:50)
[2021-09-08] MEDS ORDERED: Dextrose 50% Abboject 50 ML SYRINGE SLOW IVP PRN (02:50)
[2021-09-08] MEDS ORDERED: HumaLOG 300 UNITS/3 ML VIAL SC PRN ×2 (02:50)
[2021-09-08] MEDS ORDERED: hydrALAZINE 20 MG/ML VIAL SLOW IVP PRN (03:03)
[2021-09-08] MEDS ORDERED: Morphine 4 MG/ML VIAL ONE (03:05)
[2021-09-08 03:47] LABS: SARS-CoV-2 NAA Rapid Test Not Detected (NotDetected)
[2021-09-08 04:37] LABS: Bacteria/HPF None Seen HPF (None Seen); Bilirubin Negative (Negative); Blood, Urine Negative (Negative); Clarity Clear (Clear); Glucose, Urine (Dipstick) Normal (Negative); Ketone, Urine Negative (Negative); Leukocyte Negative Leu/uL (Negative); Nitrite Negative (Negative); Protein, Urine (Dipstick) 50 mg/dL (Neg-Trace); RBC/HPF 0-3 HPF (0-3); Specific Gravity, Urine 1.009 (1.002-1.036); Squamous Epithelial 0-3 HPF (0-3); Urobilinogen Normal mg/dL (Less than 2); pH, Urine 7.5 (5.0-9.0)
[2021-09-08 04:38] LABS: #Basophils 0.1 thou/uL (0.0-0.2); #Eosinphils 0.3 thou/uL (0.0-0.7); #Lymphocytes 1.9 thou/uL (1.20-3.40); #Monocytes 0.8 thou/uL (0.11-0.59); #Neutrophils 8.8 thou/uL (1.40-6.50); %Basophils 0.5 % (0.0-1.0); %Eosinophils 2.2 % (0.0-10.0); %Monocytes 6.4 % (0.0-10.0); Hemoglobin 9.8 g/dL (12.0-16.0); Mean Corpuscular HGB CONC 32.8 g/dL (32.0-36.0); Mean Corpuscular Hemoglobin 27.7 pg (27.0-31.0); Mean Corpuscular Volume 84.5 fL (78.0-98.0); Mean Platelet Volume 9.7 fL (7.4-10.4); Platelet Count 176 thou/uL (130-400); RBC Distribution Width 15.8 % (11.5-14.5); Red Blood Cell (RBC) Count 3.55 mill/uL (4.20-5.40); White Blood Cell (WBC) Count 11.7 thou/uL (4.8-10.8)
[2021-09-08 04:39] LABS: Urine Culture Reflex Yes Yes
[2021-09-08 05:01] LABS: Anion Gap 13 mmol/L (10-20); BUN (Urea Nitrogen) 55 mg/dL (9.8-20.1); Calc. Creatinine Clearance 0 mL/min (70-130); Calcium 8.1 mg/dL (7.8-10.44); Carbon Dioxide 24 mmol/L (23-31); Chloride 106 mmol/L (98-107); Glucose 177 mg/dL (80-115); Magnesium 2.2 mg/dL (1.6-2.6); Sodium 139 mmol/L (136-145)
[2021-09-08 05:05] LABS: Troponin I 0.035 ng/mL (< 0.028)
[2021-09-08 06:23] VITALS: BMI 40.4
[2021-09-08 07:52] LABS: Troponin I 0.028 ng/mL (< 0.028)
[2021-09-08] MEDS: Heparin 5,000 UNITS/ML VIAL SC SCH ×3 (08:04→20:07)
[2021-09-08] MEDS: Furosemide 40 MG/4 ML VIAL SLOW IVP SCH (13:55)
[2021-09-08] MEDS: Acetaminophen 325 MG TAB PO PRN ×2 (13:56→20:08)
[2021-09-09 03:32] LABS: #Eosinphils 0.4 thou/uL (0.0-0.7); #Lymphocytes 2.4 thou/uL (1.20-3.40); #Monocytes 0.7 thou/uL (0.11-0.59); #Neutrophils 4.7 thou/uL (1.40-6.50); %Basophils 0.3 % (0.0-1.0); %Eosinophils 4.9 % (0.0-10.0); %Lymphocytes 29.6 % (21.0-51.0); %Monocytes 8.2 % (0.0-10.0); %Neutrophils 56.9 % (42.0-75.0); Mean Corpuscular HGB CONC 31.2 g/dL (32.0-36.0); Mean Corpuscular Hemoglobin 27.1 pg (27.0-31.0); Mean Corpuscular Volume 86.9 fL (78.0-98.0); Mean Platelet Volume 9.9 fL (7.4-10.4); Platelet Count 136 thou/uL (130-400); RBC Distribution Width 15.6 % (11.5-14.5); Red Blood Cell (RBC) Count 2.96 mill/uL (4.20-5.40); White Blood Cell (WBC) Count 8.2 thou/uL (4.8-10.8)
[2021-09-09 03:52] LABS: Anion Gap 12 mmol/L (10-20); BUN (Urea Nitrogen) 60 mg/dL (9.8-20.1); Calc. Creatinine Clearance 26 mL/min (70-130); Calcium 7.4 mg/dL (7.8-10.44); Carbon Dioxide 26 mmol/L (23-31); Chloride 109 mmol/L (98-107); Glucose 100 mg/dL (80-115); Magnesium 2.1 mg/dL (1.6-2.6); Potassium 3.8 mmol/L (3.5-5.1); Sodium 143 mmol/L (136-145)
[2021-09-09] MEDS: Furosemide 40 MG/4 ML VIAL SLOW IVP SCH ×2 (05:31→14:17)
[2021-09-09] MEDS: Heparin 5,000 UNITS/ML VIAL SC SCH ×3 (08:11→20:14)
[2021-09-09] MEDS: Acetaminophen 325 MG TAB PO PRN (20:13)
[2021-09-09] MEDS ORDERED: traMADol HCl 50 MG TAB PO SCH (22:15)
[2021-09-10 03:41] LABS: #Eosinphils 0.4 thou/uL (0.0-0.7); #Lymphocytes 2.8 thou/uL (1.20-3.40); #Monocytes 0.8 thou/uL (0.11-0.59); %Basophils 0.5 % (0.0-1.0); %Eosinophils 4.5 % (0.0-10.0); %Lymphocytes 30.9 % (21.0-51.0); %Monocytes 8.6 % (0.0-10.0); %Neutrophils 55.5 % (42.0-75.0); Hemoglobin 8.2 g/dL (12.0-16.0); Mean Corpuscular HGB CONC 32.7 g/dL (32.0-36.0); Mean Corpuscular Hemoglobin 27.6 pg (27.0-31.0); Mean Corpuscular Volume 84.5 fL (78.0-98.0); Mean Platelet Volume 9.9 fL (7.4-10.4); Platelet Count 142 thou/uL (130-400); RBC Distribution Width 15.6 % (11.5-14.5); Red Blood Cell (RBC) Count 2.97 mill/uL (4.20-5.40)
[2021-09-10 03:57] LABS: Anion Gap 14 mmol/L (10-20); BUN (Urea Nitrogen) 66 mg/dL (9.8-20.1); Calc. Creatinine Clearance 23 mL/min (70-130); Calcium 7.2 mg/dL (7.8-10.44); Carbon Dioxide 25 mmol/L (23-31); Chloride 103 mmol/L (98-107); Glucose 118 mg/dL (80-115); Potassium 3.7 mmol/L (3.5-5.1); Sodium 138 mmol/L (136-145)
[2021-09-10] MEDS: Furosemide 40 MG/4 ML VIAL SLOW IVP SCH (05:27)
[2021-09-10] MEDS: Heparin 5,000 UNITS/ML VIAL SC SCH ×2 (09:29→14:51)
[2021-09-10] MEDS ORDERED: Mometasone 100 MCG/Formoterol 5 MCG 120 PUFF INHALER INH SCH ×2 (10:30→18:30)
[2021-09-10 16:28] VITALS: BP 166/63
[2021-09-10 17:26] VITALS: TEMP 97.3
[2021-09-10] MEDS ORDERED: Carvedilol 6.25 MG TAB PO SCH (21:00)
[2021-09-11] MEDS ORDERED: Furosemide 40 MG/4 ML VIAL SLOW IVP SCH (09:00)
== END 2021-09-10 17:15 | disposition home or self-care (01) | DRG 291 ==
LOC: ERS 01:03 → ERHOLD 02:43 → IMCU/EMU 05:08
PROVIDERS: ADMIT Internal Medicine; ATTEND Internal Medicine
PROC: 5A09357 Assistance with Respiratory Ventilation, Less than 24 Consecutive Hours, Continuous Positive Airway Pressure (ICD-10-PCS; principal; 2021-09-08)
DX: I13.0 Hypertensive heart and chronic kidney disease with heart failure and stage 1 through stage 4 chronic kidney disease, or unspecified chronic kidney disease (principal); J96.01 Acute respiratory failure with hypoxia; I50.43 Acute on chronic combined systolic (congestive) and diastolic (congestive) heart failure; N18.4 Chronic kidney disease, stage 4 (severe); E11.22 Type 2 diabetes mellitus with diabetic chronic kidney disease; E03.9 Hypothyroidism, unspecified; D63.1 Anemia in chronic kidney disease; Z86.73 Personal history of transient ischemic attack (TIA), and cerebral infarction without residual deficits; Z88.0 Allergy status to penicillin; Z88.2 Allergy status to sulfonamides; Z91.09 Other allergy status, other than to drugs and biological substances; Z79.899 Other long term (current) drug therapy; Z79.51 Long term (current) use of inhaled steroids; Z79.4 Long term (current) use of insulin; Z79.82 Long term (current) use of aspirin
CPT/HCPCS: 36415; 36416; 71045; 80048; 80053; 81001; 82553; 83735; 83880; 84484; 85025; 87077; 87086; 87186; 93005; 94640; 94760; J1644; J1940; J2270; J7620; U0002

== ENCOUNTER 2022-02-12 17:27 | Inpatient (IN) | payer OTHER ==
[2022-02-12] MEDS ORDERED: Furosemide 40 MG/4 ML VIAL ONE (17:37)
[2022-02-12] MEDS ORDERED: Nitroglycerin 2% Ointment 1 INCH/1 GM Packet ONE (17:37)
[2022-02-12 17:55] LABS: #Basophils 0.1 thou/uL (0.0-0.2); #Eosinphils 0.2 thou/uL (0.0-0.7); #Lymphocytes 1.8 thou/uL (1.20-3.40); #Monocytes 0.7 thou/uL (0.11-0.59); #Neutrophils 8.9 thou/uL (1.40-6.50); %Basophils 0.6 % (0.0-1.0); %Eosinophils 1.9 % (0.0-10.0); %Lymphocytes 15.3 % (21.0-51.0); %Neutrophils 76.2 % (42.0-75.0); Hemoglobin 9.8 g/dL (12.0-16.0); Mean Corpuscular HGB CONC 30.2 g/dL (32.0-36.0); Mean Corpuscular Hemoglobin 27.1 pg (27.0-31.0); Mean Corpuscular Volume 89.7 fL (78.0-98.0); Mean Platelet Volume 9.5 fL (7.4-10.4); Platelet Count 217 thou/uL (130-400); RBC Distribution Width 16.1 % (11.5-14.5); Red Blood Cell (RBC) Count 3.62 mill/uL (4.20-5.40); White Blood Cell (WBC) Count 11.7 thou/uL (4.8-10.8)
[2022-02-12 18:08] LABS: ALT (SGPT) 23 U/L (8-55); AST (SGOT) 49 U/L (5-34); Albumin 3.5 g/dL (3.4-4.8); Alkaline Phosphatase 118 U/L (40-110); Anion Gap 17 mmol/L (10-20); BUN (Urea Nitrogen) 52 mg/dL (9.8-20.1); Bilirubin, Total 0.8 mg/dL (0.2-1.2); Calc. Creatinine Clearance 0 mL/min (70-130); Calcium 8.1 mg/dL (7.8-10.44); Carbon Dioxide 22 mmol/L (23-31); Chloride 108 mmol/L (98-107); Glucose 188 mg/dL (80-115); Potassium 5.1 mmol/L (3.5-5.1); Protein, Total 8.5 g/dL (5.8-8.1); Sodium 142 mmol/L (136-145)
[2022-02-12 18:25] LABS: Actual Bicarbonate (HCO3a) 21.6 mEq/L (22-28); Analyzer IN Cardio ER; Base Excess (BEa) -3.6 mEq/L (-2.0 to +3.0); CO2 Tension 39.6 mmHg (35.0-45.0); Calcium, Ionized (arterial) 1.02 mmol/L (1.12-1.30); Carboxyhemoglobin (COHb) 0.6 gm% (0.0-3.0); Hemoglobin (Hb) 9.2 g/dL (12.0-16.0); O2 Tension (PaO2), arterial 103.4 mmHg (> 80.0); Potassium - ABG Lab 4.65 mmol/L (3.70-5.30); pH, Arterial 7.36 (7.35-7.45)
[2022-02-12 18:29] LABS: CKMB 3.7 ng/mL (0-6.6)
[2022-02-12 18:32] LABS: Puncture Site RRA
[2022-02-12 21:17] LABS: Troponin I 0.073 ng/mL (< 0.028)
[2022-02-12] MEDS ORDERED: Dextrose 50% Abboject 50 ML SYRINGE SLOW IVP PRN (21:27)
[2022-02-12] MEDS ORDERED: Dextrose 5% in Water 1,000 ML IV PRN (21:27)
[2022-02-12] MEDS ORDERED: Bisacodyl 5 MG TAB PO PRN (21:27)
[2022-02-12] MEDS ORDERED: Zolpidem Tartrate 5 MG TAB PO PRN (21:30)
[2022-02-12] MEDS ORDERED: Acetaminophen 325 MG TAB PO PRN (21:30)
[2022-02-12] MEDS ORDERED: Furosemide 100 MG/10 ML VIAL SLOW IVP SCH (21:45)
[2022-02-12] MEDS ORDERED: Metolazone 5 MG TAB PO SCH (21:45)
[2022-02-13 00:35] LABS: Troponin I 0.073 ng/mL (< 0.028)
[2022-02-13] MEDS: HYDROcodone/Acetaminophen 5/325 mg Tablet PO PRN ×2 (04:07→20:01)
[2022-02-13 04:58] LABS: #Basophils 0.1 thou/uL (0.0-0.2); #Eosinphils 0.2 thou/uL (0.0-0.7); #Lymphocytes 2.6 thou/uL (1.20-3.40); #Monocytes 1.1 thou/uL (0.11-0.59); #Neutrophils 6.4 thou/uL (1.40-6.50); %Basophils 0.8 % (0.0-1.0); %Eosinophils 1.8 % (0.0-10.0); %Lymphocytes 24.8 % (21.0-51.0); %Monocytes 10.6 % (0.0-10.0); %Neutrophils 62.1 % (42.0-75.0); Hemoglobin 8.7 g/dL (12.0-16.0); Mean Corpuscular HGB CONC 31.3 g/dL (32.0-36.0); Mean Corpuscular Hemoglobin 27.7 pg (27.0-31.0); Mean Corpuscular Volume 88.7 fL (78.0-98.0); Mean Platelet Volume 9.3 fL (7.4-10.4); Platelet Count 165 thou/uL (130-400); Red Blood Cell (RBC) Count 3.14 mill/uL (4.20-5.40); White Blood Cell (WBC) Count 10.4 thou/uL (4.8-10.8)
[2022-02-13 05:23] LABS: ALT (SGPT) 19 U/L (8-55); AST (SGOT) 32 U/L (5-34); Albumin 3.2 g/dL (3.4-4.8); Alkaline Phosphatase 94 U/L (40-110); Anion Gap 16 mmol/L (10-20); BUN (Urea Nitrogen) 56 mg/dL (9.8-20.1); Bilirubin, Total 0.7 mg/dL (0.2-1.2); Calc. Creatinine Clearance 23 mL/min (70-130); Calcium 7.7 mg/dL (7.8-10.44); Carbon Dioxide 26 mmol/L (23-31); Chloride 104 mmol/L (98-107); Globulin 4.5 g/dL (2.4-3.5); Glucose 199 mg/dL (80-115); Magnesium 2.4 mg/dL (1.6-2.6); Potassium 4.6 mmol/L (3.5-5.1); Protein, Total 7.7 g/dL (5.8-8.1); Sodium 141 mmol/L (136-145)
[2022-02-13 05:26] LABS: Troponin I 0.081 ng/mL (< 0.028)
[2022-02-13] MEDS: Furosemide 100 MG/10 ML VIAL SLOW IVP SCH ×2 (05:53→13:57)
[2022-02-13] MEDS: HumaLOG 300 UNITS/3 ML VIAL SC PRN ×3 (05:53→20:02)
[2022-02-13] MEDS ORDERED: Nitroglycerin 0.4 MG TAB (25 Tab Bottle) ONE (06:06)
[2022-02-13] MEDS ORDERED: Enoxaparin Sodium 40 MG/0.4 ML SYRINGE SC SCH (09:00)
[2022-02-13] MEDS: Metolazone 5 MG TAB PO SCH (09:51)
[2022-02-13] MEDS: Famotidine 20 MG TAB PO SCH (09:51)
[2022-02-13] MEDS: Rosuvastatin 10 MG TAB PO SCH (20:02)
[2022-02-13] MEDS: Carvedilol 6.25 MG TAB PO SCH (20:02)
[2022-02-13] MEDS: Potassium Chloride 10 MEQ TAB PO SCH (20:02)
[2022-02-13] MEDS: Ondansetron PF 4 MG/2 ML Vial IVP PRN (23:18)
[2022-02-14] MEDS: hydrALAZINE 20 MG/ML VIAL SLOW IVP PRN (03:39)
[2022-02-14] MEDS: Furosemide 100 MG/10 ML VIAL SLOW IVP SCH ×2 (04:57→15:53)
[2022-02-14 05:17] LABS: Anion Gap 16 mmol/L (10-20); BUN (Urea Nitrogen) 60 mg/dL (9.8-20.1); Calc. Creatinine Clearance 20 mL/min (70-130); Calcium 7.4 mg/dL (7.8-10.44); Carbon Dioxide 29 mmol/L (23-31); Chloride 97 mmol/L (98-107); Glucose 247 mg/dL (80-115); Magnesium 2.3 mg/dL (1.6-2.6); Potassium 4.4 mmol/L (3.5-5.1); Sodium 138 mmol/L (136-145)
[2022-02-14] MEDS ORDERED: traMADol HCl 50 MG TAB PO SCH (05:45)
[2022-02-14] MEDS: HumaLOG 300 UNITS/3 ML VIAL SC PRN ×2 (05:56→18:29)
[2022-02-14] MEDS: Enoxaparin Sodium 30 MG/0.3 ML SYRINGE SC SCH (08:33)
[2022-02-14] MEDS: Potassium Chloride 10 MEQ TAB PO SCH (08:34)
[2022-02-14] MEDS: Carvedilol 6.25 MG TAB PO SCH ×2 (08:34→21:48)
[2022-02-14] MEDS: Metolazone 5 MG TAB PO SCH (08:35)
[2022-02-14] MEDS: Famotidine 20 MG TAB PO SCH (08:37)
[2022-02-14] MEDS ORDERED: Lisinopril 5 MG TAB PO SCH (09:00)
[2022-02-14] MEDS: Rosuvastatin 10 MG TAB PO SCH (21:48)
[2022-02-14] MEDS: HYDROcodone/Acetaminophen 5/325 mg Tablet PO PRN (22:52)
[2022-02-15] MEDS: hydrALAZINE 20 MG/ML VIAL SLOW IVP PRN (00:09)
[2022-02-15] MEDS ORDERED: diphenhydrAMINE 25 MG CAP PO PRN (02:19)
[2022-02-15] MEDS: Furosemide 100 MG/10 ML VIAL SLOW IVP SCH ×2 (05:32→15:20)
[2022-02-15 05:33] LABS: #Eosinphils 0.4 thou/uL (0.0-0.7); #Lymphocytes 2.1 thou/uL (1.20-3.40); #Monocytes 0.8 thou/uL (0.11-0.59); #Neutrophils 5.5 thou/uL (1.40-6.50); %Basophils 0.5 % (0.0-1.0); %Eosinophils 4.3 % (0.0-10.0); %Lymphocytes 23.4 % (21.0-51.0); %Monocytes 9.3 % (0.0-10.0); %Neutrophils 62.5 % (42.0-75.0); Mean Corpuscular HGB CONC 31.6 g/dL (32.0-36.0); Mean Corpuscular Hemoglobin 27.3 pg (27.0-31.0); Mean Corpuscular Volume 86.2 fL (78.0-98.0); Mean Platelet Volume 9.2 fL (7.4-10.4); Platelet Count 195 thou/uL (130-400); RBC Distribution Width 16.1 % (11.5-14.5); Red Blood Cell (RBC) Count 3.31 mill/uL (4.20-5.40); White Blood Cell (WBC) Count 8.8 thou/uL (4.8-10.8)
[2022-02-15 05:36] LABS: Anion Gap 19 mmol/L (10-20); BUN (Urea Nitrogen) 74 mg/dL (9.8-20.1); Calc. Creatinine Clearance 18 mL/min (70-130); Calcium 7.2 mg/dL (7.8-10.44); Carbon Dioxide 32 mmol/L (23-31); Chloride 92 mmol/L (98-107); Glucose 173 mg/dL (80-115); Phosphorus 6.9 mg/dL (2.3-4.7); Potassium 3.9 mmol/L (3.5-5.1); Sodium 139 mmol/L (136-145)
[2022-02-15] MEDS: HumaLOG 300 UNITS/3 ML VIAL SC PRN ×3 (06:46→16:47)
[2022-02-15] MEDS: Famotidine 20 MG TAB PO SCH (09:28)
[2022-02-15] MEDS: Carvedilol 6.25 MG TAB PO SCH ×2 (09:28→20:17)
[2022-02-15] MEDS: Enoxaparin Sodium 30 MG/0.3 ML SYRINGE SC SCH (09:28)
[2022-02-15] MEDS: Metolazone 5 MG TAB PO SCH (09:28)
[2022-02-15] MEDS: Sevelamer Carbonate 800 MG TAB PO SCH ×2 (12:43→16:47)
[2022-02-15] MEDS: Rosuvastatin 10 MG TAB PO SCH (20:18)
[2022-02-16] MEDS: traMADol HCl 50 MG TAB PO PRN (00:35)
[2022-02-16 01:20] LABS: Bacteria/HPF 2+ HPF (None Seen); Bilirubin Negative (Negative); Blood, Urine Negative (Negative); Clarity Clear (Clear); Glucose, Urine (Dipstick) 500 mg/dL (Negative); Ketone, Urine Negative (Negative); Leukocyte Negative Leu/uL (Negative); Nitrite Negative (Negative); Protein, Urine (Dipstick) 20 mg/dL (Neg-Trace); RBC/HPF 0-3 HPF (0-3); Squamous Epithelial 0-3 HPF (0-3); Urobilinogen Normal mg/dL (Less than 2); WBC/HPF 0-3 HPF (0-3)
[2022-02-16 01:21] LABS: Urine Culture Reflex Yes Yes
[2022-02-16] MEDS: hydrALAZINE 20 MG/ML VIAL SLOW IVP PRN (03:43)
[2022-02-16 04:31] LABS: #Eosinphils 0.3 thou/uL (0.0-0.7); #Monocytes 0.9 thou/uL (0.11-0.59); #Neutrophils 5.4 thou/uL (1.40-6.50); %Basophils 0.4 % (0.0-1.0); %Eosinophils 3.8 % (0.0-10.0); %Lymphocytes 22.9 % (21.0-51.0); %Neutrophils 62.9 % (42.0-75.0); Hemoglobin 9.5 g/dL (12.0-16.0); Mean Corpuscular HGB CONC 33.1 g/dL (32.0-36.0); Mean Corpuscular Hemoglobin 28.7 pg (27.0-31.0); Mean Corpuscular Volume 86.7 fL (78.0-98.0); Mean Platelet Volume 9.6 fL (7.4-10.4); Platelet Count 199 thou/uL (130-400); RBC Distribution Width 16.1 % (11.5-14.5); Red Blood Cell (RBC) Count 3.33 mill/uL (4.20-5.40); White Blood Cell (WBC) Count 8.5 thou/uL (4.8-10.8)
[2022-02-16 04:37] LABS: Anion Gap 15 mmol/L (10-20); BUN (Urea Nitrogen) 74 mg/dL (9.8-20.1); Calc. Creatinine Clearance 17 mL/min (70-130); Calcium 6.9 mg/dL (7.8-10.44); Carbon Dioxide 37 mmol/L (23-31); Chloride 90 mmol/L (98-107); Glucose 275 mg/dL (80-115); Potassium 3.7 mmol/L (3.5-5.1); Sodium 138 mmol/L (136-145)
[2022-02-16] MEDS: Furosemide 40 MG/4 ML VIAL SLOW IVP SCH ×2 (05:10→14:32)
[2022-02-16] MEDS: HumaLOG 300 UNITS/3 ML VIAL SC PRN ×2 (06:13→16:45)
[2022-02-16] MEDS: Carvedilol 6.25 MG TAB PO SCH ×2 (08:53→20:34)
[2022-02-16] MEDS: Sevelamer Carbonate 800 MG TAB PO SCH ×3 (08:53→16:44)
[2022-02-16] MEDS: Enoxaparin Sodium 30 MG/0.3 ML SYRINGE SC SCH (08:54)
[2022-02-16] MEDS ORDERED: diphenhydrAMINE 25 MG CAP PO SCH (09:00)
[2022-02-16] MEDS: Polyethylene Glycol OPTH DROP 15 ML BOT EA EYE SCH ×3 (14:31→20:35)
[2022-02-16] MEDS: Rosuvastatin 10 MG TAB PO SCH (20:35)
[2022-02-17 04:23] LABS: #Eosinphils 0.2 thou/uL (0.0-0.7); #Lymphocytes 2.1 thou/uL (1.20-3.40); #Monocytes 0.8 thou/uL (0.11-0.59); #Neutrophils 6.3 thou/uL (1.40-6.50); %Basophils 0.3 % (0.0-1.0); %Lymphocytes 22.2 % (21.0-51.0); %Monocytes 8.4 % (0.0-10.0); %Neutrophils 67.1 % (42.0-75.0); Hemoglobin 10.1 g/dL (12.0-16.0); Mean Corpuscular HGB CONC 30.5 g/dL (32.0-36.0); Mean Corpuscular Hemoglobin 27.3 pg (27.0-31.0); Mean Corpuscular Volume 89.7 fL (78.0-98.0); Mean Platelet Volume 9.7 fL (7.4-10.4); Platelet Count 183 thou/uL (130-400); Red Blood Cell (RBC) Count 3.68 mill/uL (4.20-5.40); White Blood Cell (WBC) Count 9.4 thou/uL (4.8-10.8)
[2022-02-17 04:43] LABS: BUN (Urea Nitrogen) 74 mg/dL (9.8-20.1); Calc. Creatinine Clearance 16 mL/min (70-130); Calcium 6.9 mg/dL (7.8-10.44); Glucose 208 mg/dL (80-115)
[2022-02-17 04:52] LABS: Anion Gap 19 mmol/L (10-20); Carbon Dioxide 36 mmol/L (23-31); Chloride 88 mmol/L (98-107); Potassium 3.6 mmol/L (3.5-5.1); Sodium 139 mmol/L (136-145)
[2022-02-17] MEDS: HumaLOG 300 UNITS/3 ML VIAL SC PRN ×3 (07:49→17:45)
[2022-02-17] MEDS ORDERED: Furosemide 40 MG/4 ML VIAL SLOW IVP SCH (09:00)
[2022-02-17] MEDS ORDERED: Polyethylene Glycol 3350 17 GM Packet PO SCH (10:00)
[2022-02-17] MEDS: Carvedilol 6.25 MG TAB PO SCH ×2 (10:31→20:24)
[2022-02-17] MEDS: Enoxaparin Sodium 30 MG/0.3 ML SYRINGE SC SCH (10:31)
[2022-02-17] MEDS: Sevelamer Carbonate 800 MG TAB PO SCH (10:31)
[2022-02-17] MEDS: Polyethylene Glycol OPTH DROP 15 ML BOT EA EYE SCH ×4 (10:32→20:24)
[2022-02-17] MEDS: Albumin 25% 25 GM/100 ML BOT IVPB SCH ×2 (13:06→17:44)
[2022-02-17] MEDS: Calcium Acetate 667 MG CAP PO SCH ×2 (13:06→17:44)
[2022-02-17] MEDS: Rosuvastatin 10 MG TAB PO SCH (20:24)
[2022-02-17] MEDS: Senokot S 8.6-50 MG TAB PO SCH (20:24)
[2022-02-18] MEDS: traMADol HCl 50 MG TAB PO PRN (04:05)
[2022-02-18] MEDS: hydrALAZINE 20 MG/ML VIAL SLOW IVP PRN (04:05)
[2022-02-18 04:19] LABS: #Eosinphils 0.2 thou/uL (0.0-0.7); #Lymphocytes 2.1 thou/uL (1.20-3.40); #Monocytes 0.8 thou/uL (0.11-0.59); %Basophils 0.4 % (0.0-1.0); %Eosinophils 2.6 % (0.0-10.0); %Lymphocytes 22.3 % (21.0-51.0); %Neutrophils 65.7 % (42.0-75.0); Hemoglobin 9.7 g/dL (12.0-16.0); Mean Corpuscular HGB CONC 31.4 g/dL (32.0-36.0); Mean Corpuscular Hemoglobin 27.8 pg (27.0-31.0); Mean Corpuscular Volume 88.7 fL (78.0-98.0); Mean Platelet Volume 9.8 fL (7.4-10.4); Platelet Count 173 thou/uL (130-400); RBC Distribution Width 15.7 % (11.5-14.5); Red Blood Cell (RBC) Count 3.49 mill/uL (4.20-5.40); White Blood Cell (WBC) Count 9.2 thou/uL (4.8-10.8)
[2022-02-18 04:43] LABS: Anion Gap 17 mmol/L (10-20); BUN (Urea Nitrogen) 68 mg/dL (9.8-20.1); Calc. Creatinine Clearance 17 mL/min (70-130); Calcium 6.9 mg/dL (7.8-10.44); Carbon Dioxide 36 mmol/L (23-31); Chloride 90 mmol/L (98-107); Glucose 194 mg/dL (80-115); Iron 28 ug/dL (50-170); Iron Binding Capacity, Total 240 mcg/dL (265-497); Potassium 3.5 mmol/L (3.5-5.1); Sodium 139 mmol/L (136-145)
[2022-02-18] MEDS: HumaLOG 300 UNITS/3 ML VIAL SC PRN ×2 (05:51→11:42)
[2022-02-18] MEDS: Enoxaparin Sodium 30 MG/0.3 ML SYRINGE SC SCH (09:00)
[2022-02-18] MEDS: Calcium Acetate 667 MG CAP PO SCH ×4 (09:00→15:56)
[2022-02-18] MEDS: Senokot S 8.6-50 MG TAB PO SCH ×2 (09:00→21:02)
[2022-02-18] MEDS: Polyethylene Glycol OPTH DROP 15 ML BOT EA EYE SCH ×5 (09:00→20:58)
[2022-02-18] MEDS: Carvedilol 6.25 MG TAB PO SCH ×2 (09:00→15:53)
[2022-02-18] MEDS: Polyethylene Glycol 3350 17 GM Packet PO SCH (09:00)
[2022-02-18] MEDS: Furosemide 40 MG TAB PO SCH (09:00)
[2022-02-18] MEDS: Ferrous Sulfate 325 MG TAB PO SCH ×2 (15:53→15:57)
[2022-02-18] MEDS: Rosuvastatin 10 MG TAB PO SCH (21:02)
[2022-02-19 04:24] LABS: #Basophils 0.1 thou/uL (0.0-0.2); #Eosinphils 0.2 thou/uL (0.0-0.7); #Lymphocytes 1.7 thou/uL (1.20-3.40); #Neutrophils 5.9 thou/uL (1.40-6.50); %Basophils 0.6 % (0.0-1.0); %Eosinophils 2.3 % (0.0-10.0); %Lymphocytes 19.5 % (21.0-51.0); %Monocytes 10.7 % (0.0-10.0); Hemoglobin 10.1 g/dL (12.0-16.0); Mean Corpuscular HGB CONC 30.8 g/dL (32.0-36.0); Mean Corpuscular Hemoglobin 27.4 pg (27.0-31.0); Mean Corpuscular Volume 88.7 fL (78.0-98.0); Mean Platelet Volume 9.4 fL (7.4-10.4); Platelet Count 173 thou/uL (130-400); RBC Distribution Width 15.6 % (11.5-14.5); White Blood Cell (WBC) Count 8.8 thou/uL (4.8-10.8)
[2022-02-19 04:46] LABS: Albumin 3.6 g/dL (3.4-4.8); Anion Gap 15 mmol/L (10-20); BUN (Urea Nitrogen) 75 mg/dL (9.8-20.1); BUN/Creatinine Ratio 18.16; Calc. Creatinine Clearance 17 mL/min (70-130); Calcium 7.3 mg/dL (7.8-10.44); Carbon Dioxide 36 mmol/L (23-31); Chloride 90 mmol/L (98-107); Glucose 217 mg/dL (80-115); Phosphorus 4.6 mg/dL (2.3-4.7); Potassium 3.3 mmol/L (3.5-5.1); Sodium 138 mmol/L (136-145)
[2022-02-19] MEDS: HumaLOG 300 UNITS/3 ML VIAL SC PRN ×2 (06:23→20:19)
[2022-02-19] MEDS: Carvedilol 6.25 MG TAB PO SCH ×3 (09:20→17:30)
[2022-02-19] MEDS: Furosemide 40 MG TAB PO SCH ×2 (09:20→14:34)
[2022-02-19] MEDS: Ferrous Sulfate 325 MG TAB PO SCH ×2 (09:20→17:30)
[2022-02-19] MEDS: Polyethylene Glycol 3350 17 GM Packet PO SCH (09:20)
[2022-02-19] MEDS: Calcium Acetate 667 MG CAP PO SCH ×3 (09:20→17:30)
[2022-02-19] MEDS: Enoxaparin Sodium 30 MG/0.3 ML SYRINGE SC SCH (09:20)
[2022-02-19] MEDS: Polyethylene Glycol OPTH DROP 15 ML BOT EA EYE SCH ×4 (09:20→20:13)
[2022-02-19] MEDS: Senokot S 8.6-50 MG TAB PO SCH ×2 (09:21→20:12)
[2022-02-19] MEDS ORDERED: Potassium Chloride 20 MEQ TAB PO SCH (09:45)
[2022-02-19] MEDS: traMADol HCl 50 MG TAB PO PRN (20:12)
[2022-02-19] MEDS: Rosuvastatin 10 MG TAB PO SCH (20:13)
[2022-02-20 05:10] LABS: Albumin 3.5 g/dL (3.4-4.8); Anion Gap 15 mmol/L (10-20); BUN (Urea Nitrogen) 76 mg/dL (9.8-20.1); BUN/Creatinine Ratio 19.05; Calc. Creatinine Clearance 18 mL/min (70-130); Calcium 7.2 mg/dL (7.8-10.44); Carbon Dioxide 34 mmol/L (23-31); Chloride 91 mmol/L (98-107); Glucose 170 mg/dL (80-115); Magnesium 2.5 mg/dL (1.6-2.6); Sodium 136 mmol/L (136-145)
[2022-02-20] MEDS: Enoxaparin Sodium 30 MG/0.3 ML SYRINGE SC SCH (09:00)
[2022-02-20] MEDS: Carvedilol 6.25 MG TAB PO SCH ×3 (09:00→17:50)
[2022-02-20] MEDS: Calcium Acetate 667 MG CAP PO SCH ×3 (09:00→17:50)
[2022-02-20] MEDS: Polyethylene Glycol 3350 17 GM Packet PO SCH (09:00)
[2022-02-20] MEDS: Ferrous Sulfate 325 MG TAB PO SCH ×2 (09:00→17:50)
[2022-02-20] MEDS: Senokot S 8.6-50 MG TAB PO SCH ×2 (09:00→20:14)
[2022-02-20] MEDS: Polyethylene Glycol OPTH DROP 15 ML BOT EA EYE SCH ×4 (09:00→20:15)
[2022-02-20] MEDS: Furosemide 40 MG TAB PO SCH ×2 (09:00→15:23)
[2022-02-20 12:04] VITALS: BMI 36.8
[2022-02-20] MEDS: Rosuvastatin 10 MG TAB PO SCH (20:15)
[2022-02-21 04:53] LABS: #Basophils 0.1 thou/uL (0.0-0.2); #Eosinphils 0.3 thou/uL (0.0-0.7); #Lymphocytes 1.8 thou/uL (1.20-3.40); #Monocytes 0.9 thou/uL (0.11-0.59); #Neutrophils 4.7 thou/uL (1.40-6.50); %Basophils 0.8 % (0.0-1.0); %Eosinophils 3.5 % (0.0-10.0); %Lymphocytes 23.4 % (21.0-51.0); %Monocytes 11.1 % (0.0-10.0); %Neutrophils 61.3 % (42.0-75.0); Hemoglobin 9.6 g/dL (12.0-16.0); Mean Corpuscular HGB CONC 31.2 g/dL (32.0-36.0); Mean Corpuscular Hemoglobin 27.6 pg (27.0-31.0); Mean Corpuscular Volume 88.6 fL (78.0-98.0); Platelet Count 179 thou/uL (130-400); RBC Distribution Width 15.4 % (11.5-14.5); Red Blood Cell (RBC) Count 3.47 mill/uL (4.20-5.40); White Blood Cell (WBC) Count 7.7 thou/uL (4.8-10.8)
[2022-02-21 05:24] LABS: Albumin 3.5 g/dL (3.4-4.8); Anion Gap 14 mmol/L (10-20); BUN (Urea Nitrogen) 76 mg/dL (9.8-20.1); BUN/Creatinine Ratio 19.79; Calc. Creatinine Clearance 18 mL/min (70-130); Calcium 8.1 mg/dL (7.8-10.44); Carbon Dioxide 35 mmol/L (23-31); Chloride 91 mmol/L (98-107); Glucose 189 mg/dL (80-115); Phosphorus 4.4 mg/dL (2.3-4.7); Potassium 3.9 mmol/L (3.5-5.1); Sodium 136 mmol/L (136-145)
[2022-02-21] MEDS: HumaLOG 300 UNITS/3 ML VIAL SC PRN ×3 (06:05→17:55)
[2022-02-21] MEDS: Calcium Acetate 667 MG CAP PO SCH ×3 (09:36→17:49)
[2022-02-21] MEDS: Carvedilol 6.25 MG TAB PO SCH ×2 (09:37→17:49)
[2022-02-21] MEDS: Ferrous Sulfate 325 MG TAB PO SCH ×2 (09:39→17:49)
[2022-02-21] MEDS: Enoxaparin Sodium 30 MG/0.3 ML SYRINGE SC SCH (09:40)
[2022-02-21] MEDS: Furosemide 40 MG TAB PO SCH ×2 (09:41→14:35)
[2022-02-21] MEDS: Polyethylene Glycol OPTH DROP 15 ML BOT EA EYE SCH ×4 (09:41→21:33)
[2022-02-21] MEDS: Senokot S 8.6-50 MG TAB PO SCH ×2 (09:43→21:34)
[2022-02-21] MEDS: Polyethylene Glycol 3350 17 GM Packet PO SCH (09:43)
[2022-02-21] MEDS: Ondansetron PF 4 MG/2 ML Vial IVP PRN (21:33)
[2022-02-21] MEDS: Rosuvastatin 10 MG TAB PO SCH (21:33)
[2022-02-22 05:19] LABS: Albumin 3.6 g/dL (3.4-4.8); Anion Gap 16 mmol/L (10-20); BUN (Urea Nitrogen) 75 mg/dL (9.8-20.1); BUN/Creatinine Ratio 18.75; Calc. Creatinine Clearance 18 mL/min (70-130); Calcium 8.6 mg/dL (7.8-10.44); Carbon Dioxide 34 mmol/L (23-31); Chloride 91 mmol/L (98-107); Glucose 217 mg/dL (80-115); Phosphorus 3.7 mg/dL (2.3-4.7); Potassium 3.8 mmol/L (3.5-5.1); Sodium 137 mmol/L (136-145)
[2022-02-22] MEDS: HumaLOG 300 UNITS/3 ML VIAL SC PRN ×2 (06:21→14:23)
[2022-02-22] MEDS: Calcium Acetate 667 MG CAP PO SCH ×3 (08:34→18:08)
[2022-02-22] MEDS: Ferrous Sulfate 325 MG TAB PO SCH ×2 (08:35→18:08)
[2022-02-22] MEDS: Carvedilol 6.25 MG TAB PO SCH ×2 (08:36→18:08)
[2022-02-22] MEDS: Enoxaparin Sodium 30 MG/0.3 ML SYRINGE SC SCH (08:39)
[2022-02-22] MEDS: Senokot S 8.6-50 MG TAB PO SCH (08:39)
[2022-02-22] MEDS: Polyethylene Glycol OPTH DROP 15 ML BOT EA EYE SCH ×3 (08:40→18:09)
[2022-02-22] MEDS: Polyethylene Glycol 3350 17 GM Packet PO SCH (08:43)
[2022-02-22] MEDS ORDERED: AcetaZOLAMIDE 250 MG TAB PO SCH (09:00)
[2022-02-22] MEDS ORDERED: Furosemide 40 MG TAB PO SCH (09:00)
[2022-02-22 11:07] VITALS: TEMP 98
[2022-02-22 15:07] VITALS: BP 123/79
== END 2022-02-22 18:05 | disposition home or self-care (01) | DRG 291 ==
LOC: ERS 17:27 → 2SW 20:14 → 2NO 02-15 16:00
PROVIDERS: ADMIT Internal Medicine; ATTEND Internal Medicine
PROC: 5A09357 Assistance with Respiratory Ventilation, Less than 24 Consecutive Hours, Continuous Positive Airway Pressure (ICD-10-PCS; principal; 2022-02-12)
DX: I13.2 Hypertensive heart and chronic kidney disease with heart failure and with stage 5 chronic kidney disease, or end stage renal disease (principal); I50.33 Acute on chronic diastolic (congestive) heart failure; J96.01 Acute respiratory failure with hypoxia; N17.9 Acute kidney failure, unspecified; E87.3 Alkalosis; N18.5 Chronic kidney disease, stage 5; I47.2 Ventricular tachycardia; F03.90 Unspecified dementia, unspecified severity, without behavioral disturbance, psychotic disturbance, mood disturbance, and anxiety; E78.5 Hyperlipidemia, unspecified; E11.22 Type 2 diabetes mellitus with diabetic chronic kidney disease; E03.9 Hypothyroidism, unspecified; I07.1 Rheumatic tricuspid insufficiency; I25.10 Atherosclerotic heart disease of native coronary artery without angina pectoris; D63.1 Anemia in chronic kidney disease; J44.9 Chronic obstructive pulmonary disease, unspecified; E83.39 Other disorders of phosphorus metabolism; E83.51 Hypocalcemia; E87.6 Hypokalemia; R53.81 Other malaise; Z20.822 Contact with and (suspected) exposure to COVID-19; Z86.73 Personal history of transient ischemic attack (TIA), and cerebral infarction without residual deficits; Z88.0 Allergy status to penicillin; Z88.2 Allergy status to sulfonamides; Z88.8 Allergy status to other drugs, medicaments and biological substances; Z91.018 Allergy to other foods; Z79.4 Long term (current) use of insulin; I25.2 Old myocardial infarction
CPT/HCPCS: 36415; 36416; 36600; 71045; 76770; 80048; 80053; 80069; 81001; 82553; 82728; 82805; 83540; 83550; 83605; 83735; 83880; 84100; 84484; 85025; 85379; 87077; 87086; 87186; 93005; 93010; 93970; 94640; 94660; 96374; J0360; J1650; J1815; J1940; J2405; J7620; P9047; U0003; U0005

== ENCOUNTER 2022-04-21 13:37 | Inpatient (IN) | payer OTHER ==
[2022-04-21 14:32] LABS: #Eosinphils 0.2 thou/uL (0.0-0.7); #Lymphocytes 1.4 thou/uL (1.20-3.40); #Monocytes 0.8 thou/uL (0.11-0.59); #Neutrophils 5.4 thou/uL (1.40-6.50); %Lymphocytes 17.5 % (21.0-51.0); %Neutrophils 69.4 % (42.0-75.0); Hemoglobin 8.1 g/dL (12.0-16.0); Mean Corpuscular HGB CONC 30.7 g/dL (32.0-36.0); Mean Corpuscular Hemoglobin 26.3 pg (27.0-31.0); Mean Corpuscular Volume 85.6 fL (78.0-98.0); Mean Platelet Volume 9.9 fL (7.4-10.4); Platelet Count 173 thou/uL (130-400); RBC Distribution Width 17.3 % (11.5-14.5); Red Blood Cell (RBC) Count 3.06 mill/uL (4.20-5.40); White Blood Cell (WBC) Count 7.8 thou/uL (4.8-10.8)
[2022-04-21 14:52] LABS: ALT (SGPT) 10 U/L (8-55); AST (SGOT) 19 U/L (5-34); Albumin 3.2 g/dL (3.4-4.8); Alkaline Phosphatase 83 U/L (40-110); Anion Gap 18 mmol/L (10-20); BUN (Urea Nitrogen) 86 mg/dL (9.8-20.1); Bilirubin, Total 0.6 mg/dL (0.2-1.2); Calc. Creatinine Clearance 0 mL/min (70-130); Calcium 6.6 mg/dL (7.8-10.44); Carbon Dioxide 26 mmol/L (23-31); Chloride 103 mmol/L (98-107); Estimated GFR 13; Globulin 4.8 g/dL (2.4-3.5); Glucose 140 mg/dL (80-115); Potassium 4.6 mmol/L (3.5-5.1); Sodium 142 mmol/L (136-145)
[2022-04-21] MEDS ORDERED: Acetaminophen 500 MG TAB ONE (15:42)
[2022-04-21] MEDS ORDERED: Furosemide 40 MG/4 ML VIAL ONE (15:42)
[2022-04-21 18:12] LABS: Troponin I 0.015 ng/mL (< 0.028)
[2022-04-21] MEDS ORDERED: Ondansetron PF 4 MG/2 ML Vial IVP PRN (18:31)
[2022-04-21] MEDS ORDERED: Calcium Carbonate 500 MG ChewTAB PO PRN (18:31)
[2022-04-21] MEDS ORDERED: Ondansetron ODT 4 MG TAB PO PRN (18:31)
[2022-04-21] MEDS: Acetaminophen 325 MG TAB PO PRN (20:16)
[2022-04-21] MEDS: Carvedilol 25 MG TAB PO SCH (20:17)
[2022-04-21] MEDS: Rosuvastatin 10 MG TAB PO SCH (20:17)
[2022-04-21] MEDS: Clindamycin/D5W 600 MG in Premix Bag 1 BAG IVPB SCH (20:18)
[2022-04-21] MEDS: Heparin 5,000 UNITS/ML VIAL SC SCH (20:22)
[2022-04-21 20:51] LABS: Troponin I 0.015 ng/mL (< 0.028)
[2022-04-21] MEDS ORDERED: Clindamycin/D5W 300 MG/50 ML BAG IVPB SCH (23:59)
[2022-04-22] MEDS: traMADol HCl 50 MG TAB PO PRN ×2 (00:31→08:50)
[2022-04-22] MEDS ORDERED: hydrOXYzine 25 MG TAB PO SCH (01:30)
[2022-04-22] MEDS ORDERED: hydrOXYzine Pamoate 25 mg Capsule PO SCH (01:45)
[2022-04-22] MEDS: Acetaminophen 325 MG TAB PO PRN (02:11)
[2022-04-22] MEDS ORDERED: Clindamycin/D5W 600 mg/50 ml Premix Bag ONE (03:47)
[2022-04-22] MEDS ORDERED: Furosemide 40 MG TAB ONE (03:48)
[2022-04-22] MEDS ORDERED: Furosemide 40 MG/4 ML VIAL ONE (03:48)
[2022-04-22] MEDS: Clindamycin/D5W 600 MG in Premix Bag 1 BAG IVPB SCH ×3 (03:55→21:13)
[2022-04-22] MEDS: Furosemide 40 MG/4 ML VIAL SLOW IVP SCH ×2 (05:59→15:22)
[2022-04-22 07:23] LABS: #Eosinphils 0.1 thou/uL (0.0-0.7); #Lymphocytes 1.4 thou/uL (1.20-3.40); #Monocytes 0.7 thou/uL (0.11-0.59); #Neutrophils 4.9 thou/uL (1.40-6.50); %Basophils 0.3 % (0.0-1.0); %Eosinophils 1.6 % (0.0-10.0); %Lymphocytes 20.1 % (21.0-51.0); %Monocytes 9.6 % (0.0-10.0); %Neutrophils 68.5 % (42.0-75.0); Hemoglobin 7.6 g/dL (12.0-16.0); Mean Corpuscular HGB CONC 30.4 g/dL (32.0-36.0); Mean Corpuscular Hemoglobin 26.1 pg (27.0-31.0); Mean Corpuscular Volume 85.6 fL (78.0-98.0); Mean Platelet Volume 9.3 fL (7.4-10.4); Platelet Count 140 thou/uL (130-400); RBC Distribution Width 17.2 % (11.5-14.5); White Blood Cell (WBC) Count 7.2 thou/uL (4.8-10.8)
[2022-04-22 07:37] LABS: Anion Gap 19 mmol/L (10-20); BUN (Urea Nitrogen) 85 mg/dL (9.8-20.1); Calc. Creatinine Clearance 22 mL/min (70-130); Calcium 6.6 mg/dL (7.8-10.44); Carbon Dioxide 24 mmol/L (23-31); Chloride 104 mmol/L (98-107); Estimated GFR 14; Glucose 99 mg/dL (80-115); Potassium 4.8 mmol/L (3.5-5.1); Sodium 142 mmol/L (136-145)
[2022-04-22 08:02] LABS: Hypochromia SLIGHT = 6-15 cells (100X) (0-5/hpf); MDiff Complete? YES; Platelet Morphology Comment Appears Adequate; Polychromasia SLIGHT = 2-3 cells (100X) (0-2/hpf)
[2022-04-22] MEDS: Carvedilol 25 MG TAB PO SCH ×2 (08:49→21:14)
[2022-04-22] MEDS: Heparin 5,000 UNITS/ML VIAL SC SCH ×3 (08:51→21:14)
[2022-04-22] MEDS: Morphine 4 MG/ML VIAL SLOW IVP PRN (15:22)
[2022-04-22] MEDS: Epoetin (ESRD) 20,000 UNITS/ML SC SCH (18:15)
[2022-04-22] MEDS: Rosuvastatin 10 MG TAB PO SCH (21:15)
[2022-04-23] MEDS: Morphine 4 MG/ML VIAL SLOW IVP PRN ×2 (03:26→22:03)
[2022-04-23] MEDS: Clindamycin/D5W 600 MG in Premix Bag 1 BAG IVPB SCH ×2 (03:26→12:23)
[2022-04-23 04:28] LABS: #Basophils 0.1 thou/uL (0.0-0.2); #Eosinphils 0.2 thou/uL (0.0-0.7); #Lymphocytes 1.6 thou/uL (1.20-3.40); #Monocytes 0.9 thou/uL (0.11-0.59); #Neutrophils 4.6 thou/uL (1.40-6.50); %Basophils 0.8 % (0.0-1.0); %Eosinophils 2.2 % (0.0-10.0); %Monocytes 11.6 % (0.0-10.0); %Neutrophils 63.4 % (42.0-75.0); Hemoglobin 6.9 g/dL (12.0-16.0); Mean Corpuscular HGB CONC 30.9 g/dL (32.0-36.0); Mean Corpuscular Hemoglobin 26.7 pg (27.0-31.0); Mean Corpuscular Volume 86.4 fL (78.0-98.0); Mean Platelet Volume 9.4 fL (7.4-10.4); Platelet Count 124 thou/uL (130-400); RBC Distribution Width 17.1 % (11.5-14.5); Red Blood Cell (RBC) Count 2.59 mill/uL (4.20-5.40); White Blood Cell (WBC) Count 7.3 thou/uL (4.8-10.8)
[2022-04-23 04:59] LABS: Anion Gap 19 mmol/L (10-20); BUN (Urea Nitrogen) 91 mg/dL (9.8-20.1); Calc. Creatinine Clearance 20 mL/min (70-130); Calcium 6.5 mg/dL (7.8-10.44); Carbon Dioxide 25 mmol/L (23-31); Chloride 102 mmol/L (98-107); Estimated GFR 12; Glucose 126 mg/dL (80-115); Potassium 4.6 mmol/L (3.5-5.1); Sodium 141 mmol/L (136-145)
[2022-04-23 05:12] LABS: Phosphorus 9.3 mg/dL (2.3-4.7)
[2022-04-23] MEDS: Furosemide 40 MG/4 ML VIAL SLOW IVP SCH ×2 (05:54→15:55)
[2022-04-23] MEDS: Heparin 5,000 UNITS/ML VIAL SC SCH ×3 (09:32→21:50)
[2022-04-23] MEDS: Carvedilol 25 MG TAB PO SCH ×2 (09:32→21:49)
[2022-04-23] MEDS: Rosuvastatin 10 MG TAB PO SCH (21:50)
[2022-04-24 04:15] LABS: #Basophils 0.1 thou/uL (0.0-0.2); #Eosinphils 0.1 thou/uL (0.0-0.7); #Lymphocytes 1.6 thou/uL (1.20-3.40); #Monocytes 0.9 thou/uL (0.11-0.59); #Neutrophils 5.2 thou/uL (1.40-6.50); %Basophils 0.6 % (0.0-1.0); %Eosinophils 1.9 % (0.0-10.0); %Lymphocytes 20.3 % (21.0-51.0); %Monocytes 11.8 % (0.0-10.0); %Neutrophils 65.3 % (42.0-75.0); Hemoglobin 8.3 g/dL (12.0-16.0); Mean Corpuscular Hemoglobin 27.7 pg (27.0-31.0); Mean Corpuscular Volume 86.4 fL (78.0-98.0); Platelet Count 133 thou/uL (130-400); RBC Distribution Width 16.8 % (11.5-14.5); Red Blood Cell (RBC) Count 2.98 mill/uL (4.20-5.40); White Blood Cell (WBC) Count 7.9 thou/uL (4.8-10.8)
[2022-04-24 04:36] LABS: Anion Gap 20 mmol/L (10-20); BUN (Urea Nitrogen) 97 mg/dL (9.8-20.1); Calc. Creatinine Clearance 17 mL/min (70-130); Calcium 6.5 mg/dL (7.8-10.44); Carbon Dioxide 24 mmol/L (23-31); Chloride 103 mmol/L (98-107); Estimated GFR 10; Glucose 115 mg/dL (80-115); Potassium 4.5 mmol/L (3.5-5.1); Sodium 142 mmol/L (136-145)
[2022-04-24] MEDS: Furosemide 40 MG/4 ML VIAL SLOW IVP SCH ×2 (05:39→13:45)
[2022-04-24] MEDS: Carvedilol 25 MG TAB PO SCH ×2 (08:50→20:26)
[2022-04-24] MEDS: Heparin 5,000 UNITS/ML VIAL SC SCH ×3 (10:57→20:26)
[2022-04-24] MEDS: traMADol HCl 50 MG TAB PO PRN (13:44)
[2022-04-24] MEDS: Rosuvastatin 10 MG TAB PO SCH (20:26)
[2022-04-25 04:27] LABS: #Eosinphils 0.3 thou/uL (0.0-0.7); #Lymphocytes 1.6 thou/uL (1.20-3.40); #Monocytes 0.8 thou/uL (0.11-0.59); #Neutrophils 5.1 thou/uL (1.40-6.50); %Basophils 0.5 % (0.0-1.0); %Eosinophils 3.4 % (0.0-10.0); %Monocytes 10.3 % (0.0-10.0); %Neutrophils 64.8 % (42.0-75.0); Hemoglobin 8.4 g/dL (12.0-16.0); Mean Corpuscular HGB CONC 31.4 g/dL (32.0-36.0); Mean Corpuscular Hemoglobin 26.9 pg (27.0-31.0); Mean Corpuscular Volume 85.5 fL (78.0-98.0); Platelet Count 127 thou/uL (130-400); RBC Distribution Width 17.2 % (11.5-14.5); Red Blood Cell (RBC) Count 3.14 mill/uL (4.20-5.40); White Blood Cell (WBC) Count 7.8 thou/uL (4.8-10.8)
[2022-04-25 04:37] LABS: Anion Gap 17 mmol/L (10-20); BUN (Urea Nitrogen) 95 mg/dL (9.8-20.1); Calc. Creatinine Clearance 16 mL/min (70-130); Calcium 6.4 mg/dL (7.8-10.44); Carbon Dioxide 27 mmol/L (23-31); Chloride 102 mmol/L (98-107); Estimated GFR 9; Glucose 101 mg/dL (80-115); Potassium 4.3 mmol/L (3.5-5.1); Sodium 142 mmol/L (136-145)
[2022-04-25] MEDS: Furosemide 40 MG/4 ML VIAL SLOW IVP SCH ×2 (06:03→16:33)
[2022-04-25] MEDS: Heparin 5,000 UNITS/ML VIAL SC SCH ×3 (09:03→22:46)
[2022-04-25] MEDS: Carvedilol 25 MG TAB PO SCH ×2 (09:03→22:36)
[2022-04-25 13:47] LABS: Body Surface Area 1.69
[2022-04-25 13:48] LABS: Creatinine, Urine 42.31 mg/dL (47-110)
[2022-04-25] MEDS: hydrALAZINE 20 MG/ML VIAL SLOW IVP PRN (22:37)
[2022-04-25] MEDS: Rosuvastatin 10 MG TAB PO SCH (22:37)
[2022-04-26 03:16] LABS: 24 Hr Creatinine 782.74 mg/24 hr (710-1650); Creatinine, Urine 42.31 mg/dL (47-110)
[2022-04-26] MEDS: Furosemide 40 MG/4 ML VIAL SLOW IVP SCH (05:56)
[2022-04-26] MEDS: Carvedilol 25 MG TAB PO SCH ×2 (07:29→20:53)
[2022-04-26] MEDS: Heparin 5,000 UNITS/ML VIAL SC SCH ×3 (08:18→20:52)
[2022-04-26] MEDS: Morphine 4 MG/ML VIAL SLOW IVP PRN (12:32)
[2022-04-26] MEDS: Rosuvastatin 10 MG TAB PO SCH (20:53)
[2022-04-26] MEDS: hydrALAZINE 20 MG/ML VIAL SLOW IVP PRN (20:53)
[2022-04-27] MEDS: hydrALAZINE 20 MG/ML VIAL SLOW IVP PRN (01:47)
[2022-04-27] MEDS: Carvedilol 25 MG TAB PO SCH ×2 (08:55→20:52)
[2022-04-27] MEDS: Heparin 5,000 UNITS/ML VIAL SC SCH ×3 (08:56→20:55)
[2022-04-27] MEDS: Furosemide 40 MG/4 ML VIAL SLOW IVP SCH (08:56)
[2022-04-27] MEDS: Rosuvastatin 10 MG TAB PO SCH (20:52)
[2022-04-27] MEDS ORDERED: Dextrose 50% Abboject 50 ML SYRINGE SLOW IVP PRN (22:07)
[2022-04-27] MEDS ORDERED: Dextrose 5% in Water 1,000 ML IV PRN (22:07)
[2022-04-28] MEDS: hydrALAZINE 20 MG/ML VIAL SLOW IVP PRN ×2 (03:44→09:20)
[2022-04-28] MEDS: Heparin 5,000 UNITS/ML VIAL SC SCH ×3 (09:09→21:36)
[2022-04-28] MEDS: Furosemide 40 MG/4 ML VIAL SLOW IVP SCH (09:09)
[2022-04-28] MEDS: Carvedilol 25 MG TAB PO SCH ×2 (09:09→21:41)
[2022-04-28 12:11] LABS: #Basophils 0.1 thou/uL (0.0-0.2); #Eosinphils 0.2 thou/uL (0.0-0.7); #Lymphocytes 1.5 thou/uL (1.20-3.40); #Monocytes 0.7 thou/uL (0.11-0.59); #Neutrophils 7.1 thou/uL (1.40-6.50); %Basophils 0.5 % (0.0-1.0); %Eosinophils 2.3 % (0.0-10.0); %Lymphocytes 15.4 % (21.0-51.0); %Monocytes 7.3 % (0.0-10.0); %Neutrophils 74.5 % (42.0-75.0); Hemoglobin 10.6 g/dL (12.0-16.0); Mean Corpuscular HGB CONC 30.1 g/dL (32.0-36.0); Mean Corpuscular Hemoglobin 26.7 pg (27.0-31.0); Mean Corpuscular Volume 88.5 fL (78.0-98.0); Mean Platelet Volume 9.8 fL (7.4-10.4); Platelet Count 155 thou/uL (130-400); RBC Distribution Width 18.4 % (11.5-14.5); Red Blood Cell (RBC) Count 3.96 mill/uL (4.20-5.40); White Blood Cell (WBC) Count 9.6 thou/uL (4.8-10.8)
[2022-04-28 12:34] LABS: Anion Gap 26 mmol/L (10-20); BUN (Urea Nitrogen) 79 mg/dL (9.8-20.1); Calc. Creatinine Clearance 18 mL/min (70-130); Calcium 7.6 mg/dL (7.8-10.44); Carbon Dioxide 25 mmol/L (23-31); Chloride 102 mmol/L (98-107); Estimated GFR 12; Glucose 129 mg/dL (80-115); Sodium 149 mmol/L (136-145)
[2022-04-28] MEDS: Rosuvastatin 10 MG TAB PO SCH (21:36)
[2022-04-29] MEDS ORDERED: HumaLOG 300 UNITS/3 ML VIAL SC PRN ×2 (00:23)
[2022-04-29 04:29] LABS: #Eosinphils 0.3 thou/uL (0.0-0.7); #Lymphocytes 1.6 thou/uL (1.20-3.40); #Monocytes 0.9 thou/uL (0.11-0.59); #Neutrophils 6.6 thou/uL (1.40-6.50); %Basophils 0.5 % (0.0-1.0); %Eosinophils 2.9 % (0.0-10.0); %Monocytes 9.1 % (0.0-10.0); %Neutrophils 70.6 % (42.0-75.0); Hemoglobin 9.5 g/dL (12.0-16.0); Mean Corpuscular HGB CONC 30.2 g/dL (32.0-36.0); Mean Corpuscular Hemoglobin 27.2 pg (27.0-31.0); Mean Corpuscular Volume 89.9 fL (78.0-98.0); Mean Platelet Volume 9.2 fL (7.4-10.4); Platelet Count 143 thou/uL (130-400); RBC Distribution Width 17.8 % (11.5-14.5); Red Blood Cell (RBC) Count 3.51 mill/uL (4.20-5.40); White Blood Cell (WBC) Count 9.4 thou/uL (4.8-10.8)
[2022-04-29 04:50] LABS: Anion Gap 16 mmol/L (10-20); BUN (Urea Nitrogen) 78 mg/dL (9.8-20.1); Calc. Creatinine Clearance 19 mL/min (70-130); Calcium 7.4 mg/dL (7.8-10.44); Carbon Dioxide 34 mmol/L (23-31); Chloride 103 mmol/L (98-107); Estimated GFR 12; Glucose 126 mg/dL (80-115); Potassium 3.4 mmol/L (3.5-5.1); Sodium 150 mmol/L (136-145)
[2022-04-29] MEDS: Carvedilol 25 MG TAB PO SCH ×2 (08:38→19:52)
[2022-04-29] MEDS: Heparin 5,000 UNITS/ML VIAL SC SCH ×3 (08:39→19:52)
[2022-04-29] MEDS: Furosemide 40 MG/4 ML VIAL SLOW IVP SCH (08:39)
[2022-04-29] MEDS ORDERED: Dextrose 5% in Water 1,000 ML IV SCH (09:00)
[2022-04-29] MEDS: Epoetin (ESRD) 20,000 UNITS/ML SC SCH (17:36)
[2022-04-29] MEDS: Rosuvastatin 10 MG TAB PO SCH (19:52)
[2022-04-30] MEDS: Acetaminophen 325 MG TAB PO PRN ×2 (00:11→20:53)
[2022-04-30 06:40] LABS: #Basophils 0.1 thou/uL (0.0-0.2); #Eosinphils 0.4 thou/uL (0.0-0.7); #Lymphocytes 2.2 thou/uL (1.20-3.40); #Monocytes 0.8 thou/uL (0.11-0.59); %Basophils 1.1 % (0.0-1.0); %Eosinophils 4.8 % (0.0-10.0); %Monocytes 9.3 % (0.0-10.0); %Neutrophils 58.8 % (42.0-75.0); Hemoglobin 8.9 g/dL (12.0-16.0); Mean Corpuscular HGB CONC 30.1 g/dL (32.0-36.0); Mean Corpuscular Hemoglobin 26.7 pg (27.0-31.0); Mean Corpuscular Volume 88.7 fL (78.0-98.0); Mean Platelet Volume 9.2 fL (7.4-10.4); Platelet Count 133 thou/uL (130-400); RBC Distribution Width 17.8 % (11.5-14.5); Red Blood Cell (RBC) Count 3.31 mill/uL (4.20-5.40); White Blood Cell (WBC) Count 8.5 thou/uL (4.8-10.8)
[2022-04-30 07:00] LABS: Anion Gap 14 mmol/L (10-20); BUN (Urea Nitrogen) 66 mg/dL (9.8-20.1); Calc. Creatinine Clearance 21 mL/min (70-130); Calcium 7.2 mg/dL (7.8-10.44); Carbon Dioxide 35 mmol/L (23-31); Chloride 102 mmol/L (98-107); Estimated GFR 14; Glucose 154 mg/dL (80-115); Potassium 3.4 mmol/L (3.5-5.1); Sodium 148 mmol/L (136-145)
[2022-04-30 09:29] VITALS: BMI 44.0
[2022-04-30] MEDS: hydrALAZINE 25 MG TAB PO SCH ×3 (09:42→20:52)
[2022-04-30] MEDS: Carvedilol 25 MG TAB PO SCH ×2 (09:42→20:52)
[2022-04-30] MEDS: Heparin 5,000 UNITS/ML VIAL SC SCH ×3 (09:44→20:54)
[2022-04-30] MEDS ORDERED: Potassium Chloride 20 MEQ TAB PO SCH (12:00)
[2022-04-30] MEDS: Rosuvastatin 10 MG TAB PO SCH (20:52)
[2022-04-30] MEDS: Melatonin 3 MG TAB PO SCH (20:53)
[2022-05-01] MEDS: Senokot S 8.6-50 MG TAB PO PRN ×2 (00:57→08:27)
[2022-05-01] MEDS: traMADol HCl 50 MG TAB PO PRN ×2 (00:58→15:03)
[2022-05-01 06:06] LABS: #Eosinphils 0.5 thou/uL (0.0-0.7); #Lymphocytes 2.2 thou/uL (1.20-3.40); #Monocytes 0.7 thou/uL (0.11-0.59); #Neutrophils 5.3 thou/uL (1.40-6.50); %Basophils 0.5 % (0.0-1.0); %Eosinophils 5.9 % (0.0-10.0); %Lymphocytes 25.2 % (21.0-51.0); %Monocytes 8.2 % (0.0-10.0); %Neutrophils 60.1 % (42.0-75.0); Hemoglobin 8.7 g/dL (12.0-16.0); Mean Corpuscular HGB CONC 29.1 g/dL (32.0-36.0); Mean Corpuscular Hemoglobin 26.2 pg (27.0-31.0); Mean Corpuscular Volume 89.8 fL (78.0-98.0); Mean Platelet Volume 10.5 fL (7.4-10.4); Platelet Count 137 thou/uL (130-400); Red Blood Cell (RBC) Count 3.34 mill/uL (4.20-5.40); White Blood Cell (WBC) Count 8.8 thou/uL (4.8-10.8)
[2022-05-01 06:29] LABS: Anion Gap 15 mmol/L (10-20); BUN (Urea Nitrogen) 61 mg/dL (9.8-20.1); Calc. Creatinine Clearance 21 mL/min (70-130); Calcium 6.8 mg/dL (7.8-10.44); Carbon Dioxide 33 mmol/L (23-31); Chloride 104 mmol/L (98-107); Estimated GFR 14; Glucose 151 mg/dL (80-115); Magnesium 2.2 mg/dL (1.6-2.6); Potassium 3.6 mmol/L (3.5-5.1); Sodium 148 mmol/L (136-145)
[2022-05-01] MEDS: hydrALAZINE 25 MG TAB PO SCH ×3 (08:28→20:22)
[2022-05-01] MEDS: Carvedilol 25 MG TAB PO SCH ×2 (08:28→20:23)
[2022-05-01] MEDS: Heparin 5,000 UNITS/ML VIAL SC SCH ×3 (08:29→20:23)
[2022-05-01] MEDS: Acetaminophen 325 MG TAB PO PRN ×2 (08:29→20:26)
[2022-05-01 19:53] VITALS: BP 146/69; TEMP 98.3
[2022-05-01] MEDS: Melatonin 3 MG TAB PO SCH (20:23)
[2022-05-01] MEDS: Rosuvastatin 10 MG TAB PO SCH (20:23)
== END 2022-05-01 20:56 | DRG 291 ==
LOC: ERS 13:37 → 2NO 17:14 → T4-A 04-29 14:33
PROVIDERS: ADMIT Family Medicine; ATTEND Family Medicine
PROC: 30233N1 Transfusion of Nonautologous Red Blood Cells into Peripheral Vein, Percutaneous Approach (ICD-10-PCS; principal; 2022-04-23)
DX: I13.2 Hypertensive heart and chronic kidney disease with heart failure and with stage 5 chronic kidney disease, or end stage renal disease (principal); I50.43 Acute on chronic combined systolic (congestive) and diastolic (congestive) heart failure; J96.01 Acute respiratory failure with hypoxia; N17.9 Acute kidney failure, unspecified; N25.81 Secondary hyperparathyroidism of renal origin; N18.5 Chronic kidney disease, stage 5; Z68.41 Body mass index [BMI] 40.0-44.9, adult; E87.2 Acidosis; E87.0 Hyperosmolality and hypernatremia; E78.5 Hyperlipidemia, unspecified; E11.22 Type 2 diabetes mellitus with diabetic chronic kidney disease; E66.01 Morbid (severe) obesity due to excess calories; H54.8 Legal blindness, as defined in USA; D63.1 Anemia in chronic kidney disease; E83.39 Other disorders of phosphorus metabolism; R13.10 Dysphagia, unspecified; D50.9 Iron deficiency anemia, unspecified; L89.151 Pressure ulcer of sacral region, stage 1; E83.51 Hypocalcemia; E87.6 Hypokalemia; Z88.0 Allergy status to penicillin; Z88.2 Allergy status to sulfonamides; Z88.8 Allergy status to other drugs, medicaments and biological substances; Z91.048 Other nonmedicinal substance allergy status; Z79.4 Long term (current) use of insulin; Z79.899 Other long term (current) drug therapy; I69.991 Dysphagia following unspecified cerebrovascular disease
CPT/HCPCS: 36415; 36416; 36430; 71045; 74230; 80048; 80053; 82570; 82575; 83735; 83880; 83970; 84100; 84484; 85025; 86850; 86900; 86901; 87081; 93005; 94640; 94760; 96374; 97139; J0360; J1644; J1815; J1940; J2270; J2405; J3490; J7070; J7620; P9016; Q0177; Q4081; U0003; U0005

== ENCOUNTER 2022-10-16 06:29 | Inpatient (IN) | payer OTHER ==
[2022-10-16] MEDS ORDERED: Nitroglycerin 2% Ointment 1 INCH/1 GM Packet ONE (06:44)
[2022-10-16 07:09] LABS: #Basophils 0.1 thou/uL (0.0-0.2); #Eosinphils 0.4 thou/uL (0.0-0.7); #Lymphocytes 1.7 thou/uL (1.20-3.40); #Monocytes 0.6 thou/uL (0.11-0.59); #Neutrophils 5.3 thou/uL (1.40-6.50); %Basophils 0.7 % (0.0-1.0); %Eosinophils 5.4 % (0.0-10.0); %Lymphocytes 20.8 % (21.0-51.0); %Monocytes 7.3 % (0.0-10.0); %Neutrophils 65.9 % (42.0-75.0); Hemoglobin 8.9 g/dL (12.0-16.0); Mean Corpuscular HGB CONC 32.1 g/dL (32.0-36.0); Mean Corpuscular Hemoglobin 29.2 pg (27.0-31.0); Mean Platelet Volume 10.3 fL (7.4-10.4); Platelet Count 156 10x3/uL (130-400); RBC Distribution Width 16.3 % (11.5-14.5); Red Blood Cell (RBC) Count 3.05 mill/uL (4.20-5.40)
[2022-10-16 07:31] LABS: ALT (SGPT) 10 U/L (8-55); AST (SGOT) 29 U/L (5-34); Albumin 3.3 g/dL (3.4-4.8); Alkaline Phosphatase 80 U/L (40-110); Anion Gap 18 mmol/L (10-20); BUN (Urea Nitrogen) 60 mg/dL (9.8-20.1); Bilirubin, Total 0.8 mg/dL (0.2-1.2); Calc. Creatinine Clearance 0 mL/min (70-130); Carbon Dioxide 20 mmol/L (23-31); Chloride 104 mmol/L (98-107); Estimated GFR 12; Glucose 240 mg/dL (80-115); Potassium 4.9 mmol/L (3.5-5.1); Protein, Total 8.3 g/dL (5.8-8.1); Sodium 137 mmol/L (136-145)
[2022-10-16 07:32] LABS: ALT (SGPT) 13 U/L (8-55); AST (SGOT) 39 U/L (5-34); Albumin 3.2 g/dL (3.4-4.8); Alkaline Phosphatase 79 U/L (40-110); Anion Gap 19 mmol/L (10-20); BUN (Urea Nitrogen) 61 mg/dL (9.8-20.1); Bilirubin, Total 0.8 mg/dL (0.2-1.2); CK (CPK) 87 U/L (29-168); Calc. Creatinine Clearance 0 mL/min (70-130); Calcium 8.1 mg/dL (7.8-10.44); Carbon Dioxide 19 mmol/L (23-31); Chloride 104 mmol/L (98-107); Estimated GFR 12; Globulin 5.1 g/dL (2.4-3.5); Glucose 238 mg/dL (80-115); Potassium 5.1 mmol/L (3.5-5.1); Protein, Total 8.3 g/dL (5.8-8.1); Sodium 137 mmol/L (136-145)
[2022-10-16 07:49] LABS: HBSAB Concentration Less than 8.00 mIU/mL; HBSAg Index 0.21 S/CO (0-0.99); Hep B Surf AB Non-Reactive (NonReactive); Hep B Surf Ag Non-Reactive S/CO (NonReactive); Thyroid Stimulating Hormone 7.8825 uIU/mL (0.35-4.94)
[2022-10-16] MEDS ORDERED: Acetaminophen 500 MG TAB ONE (09:04)
[2022-10-16] MEDS ORDERED: Sodium Bicarb 50 MEQ/50 ML Abboject 8.4% SYRINGE ONE (09:19)
[2022-10-16] MEDS ORDERED: EPINEPHrine 1 MG/10 ML Abboject SYRINGE ONE (09:19)
[2022-10-16] MEDS ORDERED: Calcium Chloride 1 GM/10 ML Abboject SYRINGE ONE (09:19)
[2022-10-16 10:26] LABS: Lactic Acid 2.8 mmol/L (0.5-2.2)
[2022-10-16] MEDS ORDERED: Dextrose 50% Abboject 50 ML SYRINGE SLOW IVP PRN (11:14)
[2022-10-16] MEDS ORDERED: Acetaminophen 325 MG TAB PO PRN (11:14)
[2022-10-16] MEDS ORDERED: Dextrose 5% in Water 1,000 ML IV PRN (11:14)
[2022-10-16] MEDS ORDERED: HumaLOG 300 UNITS/3 ML VIAL SC PRN (11:14)
[2022-10-16] MEDS ORDERED: Ondansetron PF 4 MG/2 ML Vial IVP PRN (11:14)
[2022-10-16] MEDS ORDERED: Bisacodyl 5 MG TAB PO PRN (11:14)
[2022-10-16 12:40] LABS: Troponin I 0.058 ng/mL (< 0.028)
[2022-10-16] MEDS ORDERED: hydrALAZINE 25 MG TAB ONE (14:38)
[2022-10-16] MEDS: hydrALAZINE 25 MG TAB PO SCH ×3 (15:38→22:50)
[2022-10-16] MEDS ORDERED: Ondansetron PF 4 MG/2 ML Vial ONE ×2 (15:55→16:12)
[2022-10-16] MEDS ORDERED: Morphine 2 MG/ML VIAL ONE (16:12)
[2022-10-16] MEDS: Morphine 2 MG/ML VIAL SLOW IVP PRN ×2 (16:20→22:46)
[2022-10-16] MEDS: Heparin 5,000 UNITS/ML VIAL SC SCH ×2 (16:25→22:48)
[2022-10-16] MEDS: Ferrous Sulfate 325 MG TAB PO SCH (16:39)
[2022-10-16] MEDS ORDERED: Ipratropium/Albuterol 3 ML NEB NEB PRN (17:49)
[2022-10-16] MEDS ORDERED: Rosuvastatin 10 MG TAB PO SCH (21:00)
[2022-10-16] MEDS: Carvedilol 25 MG TAB PO SCH (22:50)
[2022-10-16] MEDS: Melatonin 3 MG TAB PO SCH (22:50)
[2022-10-16] MEDS: Nystatin Powder 15 GM BOT TOP SCH (23:19)
[2022-10-17 04:44] LABS: Anion Gap 15 mmol/L (10-20); BUN (Urea Nitrogen) 44 mg/dL (9.8-20.1); Calc. Creatinine Clearance 21 mL/min (70-130); Calcium 8.4 mg/dL (7.8-10.44); Carbon Dioxide 23 mmol/L (23-31); Chloride 104 mmol/L (98-107); Estimated GFR 16; Glucose 130 mg/dL (80-115); Magnesium 2.3 mg/dL (1.6-2.6); Potassium 4.8 mmol/L (3.5-5.1); Sodium 137 mmol/L (136-145)
[2022-10-17 04:48] LABS: #Basophils 0.1 thou/uL (0.0-0.2); #Eosinphils 0.3 thou/uL (0.0-0.7); #Lymphocytes 1.5 thou/uL (1.20-3.40); #Monocytes 0.7 thou/uL (0.11-0.59); #Neutrophils 6.6 thou/uL (1.40-6.50); %Basophils 0.8 % (0.0-1.0); %Eosinophils 2.9 % (0.0-10.0); %Lymphocytes 16.5 % (21.0-51.0); %Monocytes 7.9 % (0.0-10.0); %Neutrophils 71.8 % (42.0-75.0); Hemoglobin 7.8 g/dL (12.0-16.0); Hypochromia SLIGHT = 6-15 cells (100X) (0-5/hpf); MDiff Complete? YES; Mean Corpuscular HGB CONC 31.8 g/dL (32.0-36.0); Mean Corpuscular Hemoglobin 28.6 pg (27.0-31.0); Mean Corpuscular Volume 89.8 fl (78.0-98.0); Platelet Count 98 10x3/uL (130-400); Platelet Morphology Comment Appears Decreased; RBC Distribution Width 16.2 % (11.5-14.5); Red Blood Cell (RBC) Count 2.72 mill/uL (4.20-5.40); White Blood Cell (WBC) Count 9.2 10x3/uL (4.8-10.8)
[2022-10-17] MEDS: Ferrous Sulfate 325 MG TAB PO SCH ×2 (08:00→16:20)
[2022-10-17] MEDS: hydrALAZINE 25 MG TAB PO SCH ×3 (08:01→20:55)
[2022-10-17] MEDS: Nystatin Powder 15 GM BOT TOP SCH ×2 (08:04→21:00)
[2022-10-17] MEDS: Carvedilol 25 MG TAB PO SCH ×2 (08:04→20:59)
[2022-10-17] MEDS: Morphine 2 MG/ML VIAL SLOW IVP PRN ×2 (08:42→16:11)
[2022-10-17] MEDS: Heparin 5,000 UNITS/ML VIAL SC SCH ×3 (08:47→21:03)
[2022-10-17] MEDS ORDERED: Heparin 10,000 UNITS/ 10 ML VIAL ONE (11:50)
[2022-10-17] MEDS: Melatonin 3 MG TAB PO SCH (20:56)
[2022-10-17] MEDS: Rosuvastatin 10 MG TAB PO SCH (20:59)
[2022-10-18] MEDS: Morphine 2 MG/ML VIAL SLOW IVP PRN ×3 (05:28→23:18)
[2022-10-18 05:36] VITALS: BMI 52.2
[2022-10-18 07:01] LABS: Anion Gap 13 mmol/L (10-20); BUN (Urea Nitrogen) 61 mg/dL (9.8-20.1); Calc. Creatinine Clearance 16 mL/min (70-130); Carbon Dioxide 26 mmol/L (23-31); Chloride 103 mmol/L (98-107); Cholesterol 161 mg/dl (< 200 Desired); Estimated GFR 11; Glucose 118 mg/dL (80-115); HDL Cholesterol 53 mg/dL (>60 Neg Risk); LDL Cholesterol, Calculated 91 mg/dL; Magnesium 2.4 mg/dL (1.6-2.6); Potassium 4.1 mmol/L (3.5-5.1); Sodium 138 mmol/L (136-145); Triglycerides 84 mg/dL (Less than 150)
[2022-10-18 07:03] LABS: #Eosinphils 0.6 thou/uL (0.0-0.7); #Lymphocytes 1.8 thou/uL (1.20-3.40); #Monocytes 0.8 thou/uL (0.11-0.59); %Basophils 0.5 % (0.0-1.0); %Eosinophils 7.8 % (0.0-10.0); %Monocytes 9.6 % (0.0-10.0); %Neutrophils 60.1 % (42.0-75.0); Hemoglobin 7.6 g/dL (12.0-16.0); Mean Corpuscular HGB CONC 32.2 g/dL (32.0-36.0); Mean Corpuscular Volume 90.1 fl (78.0-98.0); Mean Platelet Volume 10.7 fL (7.4-10.4); Platelet Count 96 10x3/uL (130-400); White Blood Cell (WBC) Count 8.3 10x3/uL (4.8-10.8)
[2022-10-18 07:34] LABS: Troponin I 0.204 ng/mL (< 0.028)
[2022-10-18] MEDS: Heparin 5,000 UNITS/ML VIAL SC SCH ×2 (08:16→20:07)
[2022-10-18] MEDS: Ferrous Sulfate 325 MG TAB PO SCH ×2 (08:17→16:33)
[2022-10-18] MEDS: Carvedilol 25 MG TAB PO SCH ×2 (08:17→20:08)
[2022-10-18] MEDS: hydrALAZINE 25 MG TAB PO SCH ×3 (08:17→20:08)
[2022-10-18] MEDS: Nystatin Powder 15 GM BOT TOP SCH ×2 (08:29→20:25)
[2022-10-18] MEDS ORDERED: Heparin 10,000 UNITS/ 10 ML VIAL ONE (12:11)
[2022-10-18] MEDS ORDERED: traMADol HCl 50 MG TAB PO PRN (14:00)
[2022-10-18] MEDS ORDERED: Senokot S 8.6-50 MG TAB PO PRN (14:00)
[2022-10-18] MEDS ORDERED: Chloraseptic Spray 180 ml Bottle PO SCH (14:15)
[2022-10-18] MEDS: Calcium Carbonate 500 MG ChewTAB PO SCH (20:08)
[2022-10-18] MEDS: Rosuvastatin 10 MG TAB PO SCH (20:08)
[2022-10-18] MEDS: Melatonin 3 MG TAB PO SCH (20:29)
[2022-10-18] MEDS: Chloraseptic Spray 180 ml Bottle PO SCH (20:36)
[2022-10-19] MEDS ORDERED: Levothyroxine Sodium 75 MCG TAB PO SCH (06:00)
[2022-10-19 06:46] LABS: #Eosinphils 0.6 thou/uL (0.0-0.7); #Lymphocytes 1.7 thou/uL (1.20-3.40); #Monocytes 0.8 thou/uL (0.11-0.59); #Neutrophils 4.9 thou/uL (1.40-6.50); %Basophils 0.4 % (0.0-1.0); %Eosinophils 7.9 % (0.0-10.0); %Lymphocytes 20.7 % (21.0-51.0); Hemoglobin 7.7 g/dL (12.0-16.0); Mean Corpuscular HGB CONC 31.7 g/dL (32.0-36.0); Mean Corpuscular Hemoglobin 29.2 pg (27.0-31.0); Mean Corpuscular Volume 92.2 fl (78.0-98.0); Mean Platelet Volume 10.5 fL (7.4-10.4); Platelet Count 96 10x3/uL (130-400); RBC Distribution Width 15.8 % (11.5-14.5); Red Blood Cell (RBC) Count 2.62 mill/uL (4.20-5.40)
[2022-10-19 07:03] LABS: Anion Gap 13 mmol/L (10-20); BUN (Urea Nitrogen) 34 mg/dL (9.8-20.1); Calc. Creatinine Clearance 24 mL/min (70-130); Calcium 7.8 mg/dL (7.8-10.44); Carbon Dioxide 26 mmol/L (23-31); Chloride 102 mmol/L (98-107); Estimated GFR 17; Glucose 111 mg/dL (80-115); Potassium 4.5 mmol/L (3.5-5.1); Sodium 136 mmol/L (136-145)
[2022-10-19 07:29] VITALS: TEMP 98.3
[2022-10-19] MEDS ORDERED: Polyethylene Glycol 3350 17 GM Packet PO SCH (09:00)
[2022-10-19] MEDS ORDERED: FLU VACC QS2022-23(6MOS UP)/PF 60 MCG/0.5 ML SYRINGE IM ONE (09:00)
[2022-10-19] MEDS ORDERED: Folic Acid/Vit B Comp W-C PO SCH (09:00)
[2022-10-19] MEDS ORDERED: Lidocaine 5% Patch TD SCH (09:00)
[2022-10-19] MEDS: Calcium Carbonate 500 MG ChewTAB PO SCH (09:31)
[2022-10-19] MEDS: hydrALAZINE 25 MG TAB PO SCH ×2 (09:32→16:39)
[2022-10-19] MEDS: Carvedilol 25 MG TAB PO SCH (09:32)
[2022-10-19] MEDS: Nystatin Powder 15 GM BOT TOP SCH (09:32)
[2022-10-19] MEDS: Ferrous Sulfate 325 MG TAB PO SCH ×2 (09:33→16:39)
[2022-10-19] MEDS: Chloraseptic Spray 180 ml Bottle PO SCH (09:33)
[2022-10-19] MEDS: Heparin 5,000 UNITS/ML VIAL SC SCH (09:59)
[2022-10-19 16:57] VITALS: BP 136/63
[2022-10-19] MEDS ORDERED: Transdermal Patch Removal TOP SCH (21:00)
[2022-10-23] MEDS ORDERED: cloNIDine 0.1mg/24 Hour PATCH TD SCH (09:00)
== END 2022-10-19 18:21 | DRG 640 ==
LOC: ERS 06:29 → ERHOLD 10:43 → CCU 22:06 → T4-B 10-17 18:39
PROVIDERS: ADMIT Hospitalist; ATTEND Hospitalist
PROC: 5A09357 Assistance with Respiratory Ventilation, Less than 24 Consecutive Hours, Continuous Positive Airway Pressure (ICD-10-PCS; principal; 2022-10-16)
PROC: 5A12012 Performance of Cardiac Output, Single, Manual (ICD-10-PCS; 2022-10-16)
PROC: 5A2204Z Restoration of Cardiac Rhythm, Single (ICD-10-PCS; 2022-10-16)
PROC: 3E033XZ Introduction of Vasopressor into Peripheral Vein, Percutaneous Approach (ICD-10-PCS; 2022-10-16)
PROC: 5A1D70Z Performance of Urinary Filtration, Intermittent, Less than 6 Hours Per Day (ICD-10-PCS; 2022-10-16)
DX: E87.70 Fluid overload, unspecified (principal); Z66 Do not resuscitate; Z51.5 Encounter for palliative care; Z20.822 Contact with and (suspected) exposure to COVID-19; I46.8 Cardiac arrest due to other underlying condition; I50.43 Acute on chronic combined systolic (congestive) and diastolic (congestive) heart failure; N18.6 End stage renal disease; J96.01 Acute respiratory failure with hypoxia; I13.2 Hypertensive heart and chronic kidney disease with heart failure and with stage 5 chronic kidney disease, or end stage renal disease; Z68.41 Body mass index [BMI] 40.0-44.9, adult; I69.354 Hemiplegia and hemiparesis following cerebral infarction affecting left non-dominant side; E78.5 Hyperlipidemia, unspecified; D63.1 Anemia in chronic kidney disease; E11.22 Type 2 diabetes mellitus with diabetic chronic kidney disease; E03.9 Hypothyroidism, unspecified; E66.01 Morbid (severe) obesity due to excess calories; H91.92 Unspecified hearing loss, left ear; H54.62 Unqualified visual loss, left eye, normal vision right eye; R00.1 Bradycardia, unspecified; E88.09 Other disorders of plasma-protein metabolism, not elsewhere classified; J02.9 Acute pharyngitis, unspecified; Z88.0 Allergy status to penicillin; Z88.2 Allergy status to sulfonamides; Z91.09 Other allergy status, other than to drugs and biological substances; Z79.899 Other long term (current) drug therapy; Z79.4 Long term (current) use of insulin; Z99.2 Dependence on renal dialysis; Z91.15 Patient's noncompliance with renal dialysis
CPT/HCPCS: 36415; 36416; 71045; 80048; 80053; 80061; 82550; 83605; 83735; 83880; 84439; 84443; 84484; 85025; 86706; 87340; 90935; 92950; 93005; 93010; 93306; 94660; G0257; J0171; J1644; J2272; J2405; U0003; U0005

== ENCOUNTER 2022-11-01 06:54 | Inpatient (IN) | payer OTHER ==
[2022-11-01] MEDS ORDERED: Heparin 10,000 UNITS/ 10 ML VIAL ONE (10:11)
[2022-11-01 10:24] LABS: Hemoglobin 9.6 g/dL (12.0-16.0); Mean Corpuscular HGB CONC 30.6 g/dL (32.0-36.0); Mean Corpuscular Hemoglobin 29.9 pg (27.0-31.0); Mean Corpuscular Volume 97.5 fl (78.0-98.0); RBC Distribution Width 18.3 % (11.5-14.5); Red Blood Cell (RBC) Count 3.21 mill/uL (4.20-5.40)
[2022-11-01 10:42] LABS: ALT (SGPT) 17 U/L (8-55); AST (SGOT) 63 U/L (5-34); Albumin 3.2 g/dL (3.4-4.8); Alkaline Phosphatase 85 U/L (40-110); Anion Gap 17 mmol/L (10-20); BUN (Urea Nitrogen) 25 mg/dL (9.8-20.1); Bilirubin, Total 0.5 mg/dL (0.2-1.2); Calc. Creatinine Clearance 0 mL/min (70-130); Calcium 8.7 mg/dL (7.8-10.44); Carbon Dioxide 19 mmol/L (23-31); Chloride 106 mmol/L (98-107); Estimated GFR 15; Globulin 5.5 g/dL (2.4-3.5); Glucose 190 mg/dL (80-115); Potassium 4.3 mmol/L (3.5-5.1); Protein, Total 8.7 g/dL (5.8-8.1); Sodium 138 mmol/L (136-145)
[2022-11-01 10:52] LABS: #Eosinphils 0.2 thou/uL (0.0-0.7); #Lymphocytes 1.4 thou/uL (1.20-3.40); #Monocytes 0.7 thou/uL (0.11-0.59); #Neutrophils 8.5 thou/uL (1.40-6.50); %Basophils 0.3 % (0.0-1.0); %Eosinophils 1.9 % (0.0-10.0); %Lymphocytes 12.7 % (21.0-51.0); %Monocytes 6.7 % (0.0-10.0); %Neutrophils 78.4 % (42.0-75.0); Mean Platelet Volume 11.1 fL (7.4-10.4); Platelet Count 111 10x3/uL (130-400); Platelet Morphology Comment Appears Decreased; White Blood Cell (WBC) Count 10.9 10x3/uL (4.8-10.8)
[2022-11-01 10:55] LABS: CKMB 1.6 ng/mL (0-6.6)
[2022-11-01] MEDS ORDERED: Acetaminophen 325 MG TAB PO PRN (14:44)
[2022-11-01] MEDS ORDERED: Ondansetron PF 4 MG/2 ML Vial IVP PRN (14:44)
[2022-11-01] MEDS ORDERED: EPOETIN ALFA-EPBX (ESRD) 10,000 UNIT/ML VIAL SC SCH (15:15)
[2022-11-01 16:32] LABS: Troponin I 0.122 ng/mL (< 0.028)
[2022-11-01] MEDS ORDERED: EPOETIN ALFA-EPBX (ESRD) 10,000 UNIT/ML VIAL IVP SCH (18:00)
[2022-11-01 18:57] LABS: Troponin I 0.107 ng/mL (< 0.028)
[2022-11-01 19:46] VITALS: BMI 48.6
[2022-11-01] MEDS: HYDROcodone/Acetaminophen 5/325 mg Tablet PO PRN (21:45)
[2022-11-02] MEDS: HYDROcodone/Acetaminophen 5/325 mg Tablet PO PRN (04:25)
[2022-11-02 06:26] LABS: #Basophils 0.1 thou/uL (0.0-0.2); #Eosinphils 0.4 thou/uL (0.0-0.7); #Lymphocytes 2.3 thou/uL (1.20-3.40); #Monocytes 0.9 thou/uL (0.11-0.59); #Neutrophils 5.6 thou/uL (1.40-6.50); %Basophils 0.9 % (0.0-1.0); %Eosinophils 4.5 % (0.0-10.0); %Monocytes 9.3 % (0.0-10.0); %Neutrophils 60.2 % (42.0-75.0); Hemoglobin 7.7 g/dL (12.0-16.0); Mean Corpuscular Hemoglobin 29.4 pg (27.0-31.0); Mean Corpuscular Volume 94.9 fl (78.0-98.0); Mean Platelet Volume 10.4 fL (7.4-10.4); Platelet Count 80 10x3/uL (130-400); RBC Distribution Width 17.9 % (11.5-14.5); Red Blood Cell (RBC) Count 2.62 mill/uL (4.20-5.40); White Blood Cell (WBC) Count 9.3 10x3/uL (4.8-10.8)
[2022-11-02] MEDS ORDERED: Ondansetron ODT 8 MG TAB PO PRN (07:25)
[2022-11-02] MEDS ORDERED: traMADol HCl 50 MG TAB PO PRN (07:25)
[2022-11-02] MEDS ORDERED: Non-Formulary Item 1 EACH (Insulin Lispro [Humalog Kwikpen U-100] 100 UNIT/ML Insuln.Pen) SC PRN (07:25)
[2022-11-02] MEDS ORDERED: Ipratropium/Albuterol 3 ML NEB NEB PRN (07:25)
[2022-11-02] MEDS ORDERED: Acetaminophen 325 MG TAB PO PRN (07:38)
[2022-11-02] MEDS ORDERED: Dextrose 5% in Water 1,000 ML IV PRN (08:00)
[2022-11-02] MEDS ORDERED: Dextrose 50% Abboject 50 ML SYRINGE IVP PRN (08:00)
[2022-11-02] MEDS ORDERED: HumaLOG 300 UNITS/3 ML VIAL SC PRN (08:00)
[2022-11-02] MEDS ORDERED: FLU VACC QS2022-23(6MOS UP)/PF 60 MCG/0.5 ML SYRINGE IM ONE (09:00)
[2022-11-02] MEDS ORDERED: Nystatin Powder 15 GM BOT TOP SCH (09:00)
[2022-11-02] MEDS ORDERED: Folic Acid/Vit B Comp W-C PO SCH ×2 (09:00)
[2022-11-02] MEDS ORDERED: Polyethylene Glycol 3350 17 GM Packet PO SCH (09:00)
[2022-11-02] MEDS ORDERED: hydrALAZINE 25 MG TAB PO SCH (09:00)
[2022-11-02] MEDS ORDERED: Docusate Sodium 100 MG/10 ML UDCUP PO SCH (09:00)
[2022-11-02] MEDS ORDERED: Calcium Carbonate 500 MG ChewTAB PO SCH (09:00)
[2022-11-02 11:27] VITALS: BP 112/57; TEMP 97.7
[2022-11-02 12:05] LABS: Anion Gap 11 mmol/L (10-20); BUN (Urea Nitrogen) 21 mg/dL (9.8-20.1); Calc. Creatinine Clearance 22 mL/min (70-130); Calcium 7.9 mg/dL (7.8-10.44); Carbon Dioxide 27 mmol/L (23-31); Chloride 101 mmol/L (98-107); Estimated GFR 17; Glucose 227 mg/dL (80-115); Magnesium 1.8 mg/dL (1.6-2.6); Potassium 4.1 mmol/L (3.5-5.1); Sodium 135 mmol/L (136-145)
[2022-11-02] MEDS ORDERED: Rosuvastatin 20 MG TAB PO SCH (21:00)
[2022-11-02] MEDS ORDERED: Melatonin 3 MG TAB PO SCH (21:00)
== END 2022-11-02 13:35 | DRG 308 ==
LOC: ERS 06:54 → SUATTDRO 06:54 → 2SW 17:09 → OBSVTOIN 11-02 07:30
PROVIDERS: ADMIT Internal Medicine; ATTEND Internal Medicine
PROC: 5A1D70Z Performance of Urinary Filtration, Intermittent, Less than 6 Hours Per Day (ICD-10-PCS; principal; 2022-11-01)
DX: R00.1 Bradycardia, unspecified (principal); N18.6 End stage renal disease; I13.2 Hypertensive heart and chronic kidney disease with heart failure and with stage 5 chronic kidney disease, or end stage renal disease; I50.42 Chronic combined systolic (congestive) and diastolic (congestive) heart failure; G93.49 Other encephalopathy; Z20.822 Contact with and (suspected) exposure to COVID-19; E78.5 Hyperlipidemia, unspecified; E11.22 Type 2 diabetes mellitus with diabetic chronic kidney disease; D63.1 Anemia in chronic kidney disease; I95.3 Hypotension of hemodialysis; I42.9 Cardiomyopathy, unspecified; I49.3 Ventricular premature depolarization; Z86.74 Personal history of sudden cardiac arrest; Z88.0 Allergy status to penicillin; Z88.2 Allergy status to sulfonamides; Z91.09 Other allergy status, other than to drugs and biological substances; Z99.2 Dependence on renal dialysis; Z79.899 Other long term (current) drug therapy; Z79.4 Long term (current) use of insulin; Z79.890 Hormone replacement therapy; Z86.73 Personal history of transient ischemic attack (TIA), and cerebral infarction without residual deficits
CPT/HCPCS: 36415; 80048; 80053; 82553; 83605; 83735; 84484; 85025; 90935; 93005; 96372; G0257; G0378; J1644; Q5105; U0003; U0005

== ENCOUNTER 2022-11-04 19:04 | Emergency (ER) | payer OTHER ==
[2022-11-04 20:05] LABS: #Basophils 0.1 thou/uL (0.0-0.2); #Eosinphils 0.4 thou/uL (0.0-0.7); #Lymphocytes 2.1 thou/uL (1.20-3.40); #Monocytes 0.7 thou/uL (0.11-0.59); #Neutrophils 5.2 thou/uL (1.40-6.50); %Basophils 0.9 % (0.0-1.0); %Eosinophils 4.6 % (0.0-10.0); %Lymphocytes 24.9 % (21.0-51.0); %Monocytes 8.5 % (0.0-10.0); %Neutrophils 61.1 % (42.0-75.0); Mean Corpuscular HGB CONC 31.5 g/dL (32.0-36.0); Mean Corpuscular Hemoglobin 30.1 pg (27.0-31.0); Mean Corpuscular Volume 95.5 fl (78.0-98.0); Mean Platelet Volume 11.3 fL (7.4-10.4); Platelet Count 73 10x3/uL (130-400); White Blood Cell (WBC) Count 8.4 10x3/uL (4.8-10.8)
[2022-11-04 20:24] LABS: ALT (SGPT) 10 U/L (8-55); AST (SGOT) 25 U/L (5-34); Albumin 3.5 g/dL (3.4-4.8); Alkaline Phosphatase 85 U/L (40-110); Anion Gap 12 mmol/L (10-20); BUN (Urea Nitrogen) 13 mg/dL (9.8-20.1); Bilirubin, Total 0.5 mg/dL (0.2-1.2); Calc. Creatinine Clearance 0 mL/min (70-130); Calcium 8.3 mg/dL (7.8-10.44); Carbon Dioxide 27 mmol/L (23-31); Chloride 101 mmol/L (98-107); Estimated GFR 21; Globulin 4.9 g/dL (2.4-3.5); Glucose 187 mg/dL (80-115); Potassium 4.1 mmol/L (3.5-5.1); Protein, Total 8.4 g/dL (5.8-8.1); Sodium 136 mmol/L (136-145)
[2022-11-04 21:09] LABS: Prothrombin Time 13.7 sec (12.0-14.7)
[2022-11-04 21:10] LABS: PTT 25.4 sec (22.9-36.1)
== END 2022-11-04 22:24 | disposition home or self-care (01) ==
LOC: ERS 19:04
DX: D64.9 Anemia, unspecified (principal); N18.9 Chronic kidney disease, unspecified
CPT/HCPCS: 36415; 80053; 85025; 85610; 85730; 86850; 86900; 86901; 99284